=== PATIENT | male | born 1965 | race Caucasian/White ===

== ENCOUNTER 2018-02-26 11:14 | Day surgery (SDC) | payer MEDICAID, SELFPAY ==
[2018-01-15 11:57] VITALS: BP 133/82; PULSE 87; RESP 18; TEMP 36.6; O2SAT 92; BMI 34.0
[2018-02-26] VITALS (7 sets, daily range): BP systolic 101–139; BP diastolic 71–90; PULSE 76–89; RESP 16–18; TEMP 36.1–36.8; O2SAT 90–98; BMI 31.8
--- NOTE | 2018-02-26 | IMM_PTH ---
PATIENT: NOELLE SHINE Jr. LOC: [facility] U#:[id number] AGE/SX: 52/M ROOM: RE02/26/[address]: Dr. Twan Leyva DO : 1965 BED: DIS: 02/26/2018 SPEC #: [id number] RECD: 03/02/18 09:51 STATUS: SARAH REQ #: [id number] GERONIMO: 02/26/18 00:[address]: Twan Leyva DEPT: IMMUNOHISTOCHEMISTRY RECD BY: Jerica Hill ENTERED: 03/02/18 09:53 SP TYPE: IMMUNO OTHR DR: No Primary Care Phys Tissues: I - Hilum of lung, NOS Procedures: CD20 (add) CD45 (add) CD5 (add) CD79A (add) CD3 (initial) PHYSICIAN & INSTITUTION [place] [id number] SPECIMEN INFORMATION: Tissue Source: I ? TBNA, right hilar, site 10R Clinical Info: Mediastinal LAD Specimen Number: [id number] I CPT code: 63620, 33256 x4 METHODOLOGY: Deparaffinized sections of prefer/formalin-fixed tissue or PAP/DQ stained slides are incubated with monoclonal/polyclonal antibodies/oligonucleotide probes. Localization is made via biotin free immunoperoxidase method. Appropriate controls are performed and reacted as expected. Results on target cell population are indicated in the following table: RESULTS: ANTIBODY / CLONE RESULT Block I CD3 (PS1) positive CD5 (SP10) positive CD20 (L26) positive, rare cells CD45 (RP2/18) positive CD79a (11E3) positive, a few cells These tests were developed and their performance characteristics determined by [facility]. They may not have been cleared or approved by the U.S. Food and Drug Administration. The FDA has determined that such clearance or approval is not necessary. INTERPRETATION: I. TBNA, right hilar, site 10R: Small lymphocytes, polytypic in nature, favor benign. SJ:marcus 03/02/18
--- NOTE | 2018-02-26 08:22 | PCM.HP.STD ---
History of Present Illness Date of Admission: 02/26/18 Chief Complaint: Abnormal Chest CT The patient has an extensive smoking history of 2-3 packs per day but recently cut back to 1.5 packs per day. He has been diagnosed previously with COPD and chronic hypoxemic respiratory failure. The patient was recently evaluated at [facility] for increasing dyspnea, during which time, a CT chest was obtained which demonstrated no evidence for pulmonary embolism, but did reveal a right middle lobe mass/lymphadenopathy. The patient reports that he has been smoking now for approximately 43 years. He has a baseline supplemental oxygen requirement of 2.5 L/min. In addition, he has baseline exertional shortness of breath along with intermittent chest tightness and wheezing. He denies the presence of a cough. He was initially told that he had COPD in 2008. However, formal pulmonary function testing has never been completed. The patient was prescribed Tudorza previously but discontinued its use, as he did not feel it was helping him clinically. He currently utilizes a Ventolin rescue inhaler on average 6-8 times per day. The patient also admits to daily marijuana use and social alcohol consumption. 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 Following the patient's initial office visit with me on December 17, he was scheduled to undergo airway evaluation and mediastinal lymph node sampling via EBUS on January 15. However, despite recommendations to only taking clear liquids prior to the procedure, the patient drank coffee with creamer in it, which led to his procedure being canceled by anesthesiology. The patient was subsequently rescheduled to undergo the aforementioned procedure on February 26. Past Medical History Past Medical History (Chronic Problems): Chronic Problems (Last Reviewed 12/17/17 @ 09:32 by Michelle Fernando) Lymphadenopathy, hilar (Chronic) Medical History: Medical History (Last Reviewed 12/17/17 @ 09:32 by Michelle Fernando) COPD (chronic obstructive pulmonary disease) J44.9 Pneumonia J18.9 Allergies No Known Allergies Allergy (Unverified 02/25/18 13:05) Home Medications: Ambulatory Orders Medication Instructions Recorded Albuterol Aerosols [Ventolin 2.5 mg INHALATION BID 01/12/18 Aerosols] Albuterol Inhaler [Ventolin Hfa 1 - 2 puff INHALATION Q4H PRN PRN 01/12/18 (SP)] Surgical History: Surgical History (Last Reviewed 12/17/17 @ 09:32 by Michelle Fernando) History of vasectomy Z98.52 Smoking Status: Current every day smoker Tobacco Use: Cigarettes Review of Systems Constitutional: Denies: Chills, Fever Eyes: Denies: Blurred vision, Double vision HEENT: Denies: Head Aches, Sinus Congestion, Sinus Drainage Cardiovascular: Denies: Chest Pain, Palpitations Respiratory: Reports: Cough, Shortness of Breath Gastrointestinal: Denies: Abdominal Pain, Nausea, Vomiting Genitourinary: Denies: Dysuria Musculoskeletal: Denies: Joint Pain, Joint Tenderness Skin: Denies: Rash, Wounds Neurological: Denies: Numbness, Tingling, Focal weakness Psychiatric: Denies: Anxiety, Depression, Homicidal Ideations, Suicidal Ideations Hematologic/ Lymphatic: Denies: Easy Bruising, Easy Bleeding VTE Information - Inpt Only VTE Present on Admission: No VTE Mechan Device Prophylaxis: None VTE Pharm Prophylaxis ordered?: No Reason prophylaxis not ordered:: Procedure Not Indicated - Physical Exam General: Alert, Cooperative, No apparent distress HEENT: Atraumatic, PERRLA, Normocephalic Oral: Moist Mucosa Neck: Supple, No Nodes, Trachea Midline Lungs: No rhonchi, No wheeze, No rales, Diminished Cardiovascular: Regular rate, Regular Rhythm, Normal S1, Normal S2, No murmurs Abdomen: Bowel Sounds Present, Soft, Non Tender, Obese Extremities: No cyanosis, No edema Skin: No breakdown Musculoskeletal: No Muscle Wasting Lymphatic: No Cervical, Supraclavicular, or Inguinal Adenopathy Neurological: Neuro grossly intact Psych/Mental Status: Normal Affect, Appropriate Vital Signs Temp Pulse Resp BP Pulse Ox 97.9 F 87 18 133/82 H 92 01/15/18 11:57 01/15/18 11:57 01/15/18 11:57 01/15/18 11:57 01/15/18 11:57 Oxygen Flow Rate (L/min) 2 Oxygen Delivery Method Nasal Cannula Weight: 217 lb 6.012 oz Body Mass Index (BMI) 34.0 Assessment/Plan All Active Problems (Last Reviewed 12/17/17 @ 09:32 by Michelle Fernando) COPD (chronic obstructive pulmonary disease) (Acute) RECOMMENDATIONS: 1. Proceed with scheduled EBUS. IMPRESSIONS: 1. Abnormal chest CT The patient's recent CT chest with contrast obtained at [facility] revealed the presence of a right-sided hilar mass along with a large subcarinal lymph node, evidence of emphysema along with bronchiectasis of the right middle and lower lobes. These findings, in the setting of extensive tobacco use, is certainly concerning for underlying malignancy. I explained the process for moving forward with a direct tissue biopsy with the patient. Risks and benefits of proceeding with direct tissue biopsy/mediastinal lymph node sampling by EBUS was explained to the patient at length. Questions were answered accordingly. Patient is not currently utilizing any aspirin or blood thinning products. Following a discussion of the risks and benefits, the patient is in agreement to proceed accordingly. Bronchoscopy orders have been placed. The patient was initially scheduled to undergo his procedure on January 14, but did not comply with the clear liquid status requested by anesthesia. Therefore, the patient's procedure was canceled and had to be rescheduled for February 26. This note was generated with 9+ dictation software. It may contain incorrect words, spelling, and punctuation that were not noted in checking the note before signing.
--- NOTE | 2018-02-26 08:26 | HP.PCM_ITS ---
History of Present Illness Date of Admission: 02/26/18 Chief Complaint: Abnormal Chest CT The patient has an extensive smoking history of 2-3 packs per day but recently cut back to 1.5 packs per day. He has been diagnosed previously with COPD and chronic hypoxemic respiratory failure. The patient was recently evaluated at [facility] for increasing dyspnea, during which time, a CT chest was obtained which demonstrated no evidence for pulmonary embolism, but did reveal a right middle lobe mass/lymphadenopathy. The patient reports that he has been smoking now for approximately 43 years. He has a baseline supplemental oxygen requirement of 2.5 L/min. In addition, he has baseline exertional shortness of breath along with intermittent chest tightness and wheezing. He denies the presence of a cough. He was initially told that he had COPD in 2008. However, formal pulmonary function testing has never been completed. The patient was prescribed Tudorza previously but discontinued its use, as he did not feel it was helping him clinically. He currently utilizes a Ventolin rescue inhaler on average 6-8 times per day. The patient also admits to daily marijuana use and social alcohol consumption. 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 Following the patient's initial office visit with me on December 17, he was scheduled to undergo airway evaluation and mediastinal lymph node sampling via EBUS on January 15. However, despite recommendations to only taking clear liquids prior to the procedure, the patient drank coffee with creamer in it, which led to his procedure being canceled by anesthesiology. The patient was subsequently rescheduled to undergo the aforementioned procedure on February 26. Past Medical History Past Medical History (Chronic Problems): Chronic Problems (Last Reviewed 12/17/17 @ 09:32 by Michelle Fernando) Lymphadenopathy, hilar (Chronic) Medical History: Medical History (Last Reviewed 12/17/17 @ 09:32 by Michelle Fernando) COPD (chronic obstructive pulmonary disease) J44.9 Pneumonia J18.9 Allergies No Known Allergies Allergy (Unverified 02/25/18 13:05) Home Medications: Ambulatory Orders Medication Instructions Recorded Albuterol Aerosols [Ventolin 2.5 mg INHALATION BID 01/12/18 Aerosols] Albuterol Inhaler [Ventolin Hfa 1 - 2 puff INHALATION Q4H PRN PRN 01/12/18 (SP)] Surgical History: Surgical History (Last Reviewed 12/17/17 @ 09:32 by Michelle Fernando) History of vasectomy Z98.52 Smoking Status: Current every day smoker Tobacco Use: Cigarettes Review of Systems Constitutional: Denies: Chills, Fever Eyes: Denies: Blurred vision, Double vision HEENT: Denies: Head Aches, Sinus Congestion, Sinus Drainage Cardiovascular: Denies: Chest Pain, Palpitations Respiratory: Reports: Cough, Shortness of Breath Gastrointestinal: Denies: Abdominal Pain, Nausea, Vomiting Genitourinary: Denies: Dysuria Musculoskeletal: Denies: Joint Pain, Joint Tenderness Skin: Denies: Rash, Wounds Neurological: Denies: Numbness, Tingling, Focal weakness Psychiatric: Denies: Anxiety, Depression, Homicidal Ideations, Suicidal Ideations Hematologic/ Lymphatic: Denies: Easy Bruising, Easy Bleeding VTE Information - Inpt Only VTE Present on Admission: No VTE Mechan Device Prophylaxis: None VTE Pharm Prophylaxis ordered?: No Reason prophylaxis not ordered:: Procedure Not Indicated - Physical Exam General: Alert, Cooperative, No apparent distress HEENT: Atraumatic, PERRLA, Normocephalic Oral: Moist Mucosa Neck: Supple, No Nodes, Trachea Midline Lungs: No rhonchi, No wheeze, No rales, Diminished Cardiovascular: Regular rate, Regular Rhythm, Normal S1, Normal S2, No murmurs Abdomen: Bowel Sounds Present, Soft, Non Tender, Obese Extremities: No cyanosis, No edema Skin: No breakdown Musculoskeletal: No Muscle Wasting Lymphatic: No Cervical, Supraclavicular, or Inguinal Adenopathy Neurological: Neuro grossly intact Psych/Mental Status: Normal Affect, Appropriate Vital Signs Temp Pulse Resp BP Pulse Ox 97.9 F 87 18 133/82 H 92 01/15/18 11:57 01/15/18 11:57 01/15/18 11:57 01/15/18 11:57 01/15/18 11:57 Oxygen Flow Rate (L/min) 2 Oxygen Delivery Method Nasal Cannula Weight: 217 lb 6.012 oz Body Mass Index (BMI) 34.0 Assessment/Plan All Active Problems (Last Reviewed 12/17/17 @ 09:32 by Michelle Fernando) COPD (chronic obstructive pulmonary disease) (Acute) RECOMMENDATIONS: 1. Proceed with scheduled EBUS. IMPRESSIONS: 1. Abnormal chest CT The patient's recent CT chest with contrast obtained at [facility] revealed the presence of a right-sided hilar mass along with a large subcarinal lymph node, evidence of emphysema along with bronchiectasis of the right middle and lower lobes. These findings, in the setting of extensive tobacco use, is certainly concerning for underlying malignancy. I explained the process for moving forward with a direct tissue biopsy with the patient. Risks and benefits of proceeding with direct tissue biopsy/mediastinal lymph node sampling by EBUS was explained to the patient at length. Questions were answered accordingly. Patient is not currently utilizing any aspirin or blood thinning products. Following a discussion of the risks and benefits, the patient is in agreement to proceed accordingly. Bronchoscopy orders have been placed. The patient was initially scheduled to undergo his procedure on January 14 , but did not comply with the clear liquid status requested by anesthesia. Therefore, the patient's procedure was canceled and had to be rescheduled for February 26. This note was generated with [employer] dictation software. It may contain incorrect words, spelling, and punctuation that were not noted in checking the note before signing.
[2018-02-26 12:06] LABS: Hematocrit 51.2 % (40-54); Mean Corp Hgb Conc 33.2 g/gl (32-36); Mean Corpuscular Hgb 30.2 pg (27.0-32.0); Mean Corpuscular Volume 91.1 fL (80-94); Mean Platelet Vol. 9.2 fl (6.2-12.0); Platelet Count 233 K/mm3 (150-450); RBC Distribution Width CV 13.4 % (11.6-14.6); RBC Distribution Width SD 44.2 fl (35.1-43.9); Red Blood Count 5.62 M/mm3 (4.6-6.2); Scan Indicated on CBC? Y/N NO; White Blood Count 6.2 K/mm3 (4.4-11.0)
[2018-02-26 12:45] LABS: Prothrombin Time (Protime)PT. 12.7 SECONDS (11.7-14.9)
--- NOTE | 2018-02-26 12:45 | ASPS_PTH ---
PATIENT: NOELLE SHINE Jr. LOC: EN U#:[id number] AGE/SX: 52/M ROOM: RE02/26/[address]: Dr. Twan Leyva DO : 1965 BED: DIS: 02/26/2018 SPEC #: [id number] RECD: 02/26/18 14:15 STATUS: SARAH REJaneth #: [id number] GERONIMO: 02/26/18 12:[address]: Twan Leyva DEPT: CYTOLOGY RECD BY: Jesús Rader ENTERED: 03/01/18 09:27 SP TYPE: ASPIRATION OTHR DR: Graciela Primary Care Phys Tissues: A - Lung, NOS B - Lung, NOS C - Lung, NOS D - Lung, NOS E - Lung, NOS F - Lung, NOS G - Lung, NOS H - Lung, NOS I - Lung, NOS Procedures: Special Stain Group II Surgery Specimen Level IV Diff Quik Stain (control) Cell Block Cytology Other HEADER OPERATION: EBUS, TBNA PRE-OP DIAGNOSIS: Mediastinal LAD TISSUE SUBMITTED: A-E ? EBUS, site 7, F & G ? EBUS, site 10R, H ? TBNA, subcarina, site 7, I ? TBNA, right hilar, site 10R DIAGNOSIS CYTOLOGY A. EBUS, aspiration #1, site 7: Mucoid material. Acute inflammation. Respiratory epithelial cells, a few lymphocytes. Negative for malignant cells. B. EBUS, aspiration #2, site 7: Blood only. Negative for malignant cells. C. EBUS, aspiration #3, site 7: Adequate for evaluation. Negative for malignant cells. Lymphocytes present. D. EBUS, aspiration #4, site 7: Adequate for evaluation. Negative for malignant cells. Lymphocytes and respiratory epithelial cells present. E. EBUS, aspiration #5, site 7: Blood, a few respiratory epithelial cells and lymphocytes. Negative for malignant cells. F. EBUS, aspiration #6, site 10R: Adequate for evaluation. Negative for malignant cells. Lymphocytes present. G. EBUS, aspiration #7, site 10R: Bloody specimen. Negative for malignant cells. A few lymphocytes present. H. TBNA, subcarina, site 7 (cell block): Negative for malignant cells. Lymphocytes present. Adequate for evaluation. I. TBNA, right hilar, site 10R (cell block): Negative for malignant cells. Lymphocytes present. Adequate for evaluation. SJ:marcus 03/02/18 COMMENT The specimen is evaluated at the time of procedure by Dr. Muir. Immediate evaluation: A. EBUS, aspiration #1, site 7: Mucoid material. Acute inflammation. Respiratory epithelial cells, a few lymphocytes. Negative for malignant cells. Reported to Dr. Leyva at 1:00 p.m. B. EBUS, aspiration #2, site 7: Blood only. Negative for malignant cells. Reported to Dr. Leyva at 1:00 p.m. C. EBUS, aspiration #3, site 7: Adequate for evaluation. Negative for malignant cells. Lymphocytes present. Reported to Dr. Leyva at 1:04 p.m. D. EBUS, aspiration #4, site 7: Adequate for evaluation. Negative for malignant cells. Lymphocytes present and respiratory epithelial cells. Reported at 1:15 p.m. E. EBUS, aspiration #5, site 7: Blood, a few respiratory epithelial cells and lymphocytes. Negative for malignant cells. Reported to Dr. Leyva at 1:19 p.m. F. EBUS, aspiration #6, site 10R: Adequate for evaluation. Negative for malignant cells. Lymphocytes present. Reported to Dr. Leyva at 1:23 p.m. G. EBUS, aspiration #7, site 10R: Bloody specimen. Negative for malignant cells. A few lymphocytes present. Reported to Dr. Leyva at 1:28 p.m. I. Immunohistochemistry ([id number]) shows lymphocytes to be polytypic in nature, favor benign. CYTOLOGY STUDY Slides are reviewed. CYTOLOGY GROSS A ? Received labeled with the patient?s name, and designated ?FNA, EBUS, aspiration #1, site 7.? The specimen consists of two smears. The smears are submitted for immediate cytologic evaluation (wet?read). B - Received labeled with the patient?s name, and designated ?FNA, EBUS, aspiration #2, site 7.? The specimen consists of two smears. The smears are submitted for immediate cytologic evaluation (wet?read). C - Received labeled with the patient?s name, and designated ?FNA, EBUS, aspiration #3, site 7.? The specimen consists of two smears. The smears are submitted for immediate cytologic evaluation (wet?read). D - Received labeled with the patient?s name, and designated ?FNA, EBUS, aspiration #4, site 7.? The specimen consists of two smears. The smears are submitted for immediate cytologic evaluation (wet?read). E - Received labeled with the patient?s name, and designated ?FNA, EBUS, aspiration #5, site 7.? The specimen consists of two smears. The smears are submitted for immediate cytologic evaluation (wet?read). F - Received labeled with the patient?s name, and designated ?FNA, EBUS, aspiration #6, site 10R.? The specimen consists of two smears. The smears are submitted for immediate cytologic evaluation (wet?read). G - Received labeled with the patient?s name, and designated ?FNA, EBUS, aspiration #7, site 10R.? The specimen consists of two smears. The smears are submitted for immediate cytologic evaluation (wet?read). H ? Received is 1 ml of thick bloody fluid labeled with the patient?s name, and designated ?TBNA, subcarina, site?7.? Submitted for cytology preparation including cell block. I - Received is 1 ml of thick bloody fluid labeled with the patient?s name, and designated ?TBNA, right hilar, site?10R.? Submitted for cytology preparation including cell block. / DARSHAN:marcus 02/26/18 TC:5 CPT: 62545 x2, 41748 x2, 21618 x2, 71983 x5
[2018-02-26 12:46] LABS: Partial Thromboplast Time 27.4 Seconds (24.1-36.2)
--- NOTE | 2018-02-26 14:00 | PCM.OP.BLANK ---
Operative Report Date of Procedure: 02/26/18 BRONCHOSCOPY (EBUS) PROCEDURE REPORT DATE OF SERVICE: February 26, 2018 BRIEF HISTORY: The patient has an extensive smoking history of 2-3 packs per day but recently cut back to 1.5 packs per day. He has been diagnosed previously with COPD and chronic hypoxemic respiratory failure. The patient was recently evaluated at [facility] for increasing dyspnea, during which time, a CT chest was obtained which demonstrated no evidence for pulmonary embolism, but did reveal a right middle lobe mass/lymphadenopathy. The patient reports that he has been smoking now for approximately 43 years. He has a baseline supplemental oxygen requirement of 2.5 L/min. Following the patient's initial office visit with me on December 17, he was scheduled to undergo airway evaluation and mediastinal lymph node sampling via EBUS on January 15. However, despite recommendations to only take clear liquids prior to the procedure, the patient drank coffee with creamer in it, which led to his procedure being canceled by anesthesiology. The patient was subsequently rescheduled to undergo the aforementioned procedure on February 26. PROCEDURE: Bronchoscopy with endoscopic endobronchial ultrasound (EBUS), transbronchial needle aspiration INDICATION: Mediastinal lymphadenopathy PHYSICIAN: Twan Leyva DO ANESTHETIC: This procedure was completed under the supervision of anesthesia. Please refer to their documentation accordingly. COMPLICATIONS: No immediate complications noted. DESCRIPTION OF PROCEDURE: A history and physical has been performed. Please see outpatient pulmonary clinic note. The patient's medications and allergies have been reviewed. The risks and benefits of the procedure and sedation options and risks were discussed with the patient at length. All questions were answered and informed consent was obtained. The patient's identification and proposed procedure were verified prior to the procedure by the physician. ASA GRADE ASSESSMENT: II After obtaining informed consent, the bronchoscope was introduced through the mouth, via laryngeal mask airway and advanced to the tracheal bronchial tree bilaterally. The procedure was accomplished without difficulty. The patient tolerated the procedure well. FINDINGS: The visualized oropharynx appears normal. The vocal cords appeared normal and moved normally with breathing. The subglottic space is normal. The trachea was of normal caliber. The ace is sharp. The tracheal bronchial trees of the left and right lungs were examined to at least the first subsegmental level. Bronchial mucosa and anatomy was noted to be normal. No endobronchial lesions were identified. Once the airway inspection was completed, the standard bronchoscope was withdrawn and a convex probe endobronchial ultrasound (EBUS) bronchoscope was inserted through the same route. The endobronchial ultrasound endoscope was then utilized to systematically examine the superior/inferior mediastinal and hilar lymph nodes to assist with fine-needle aspiration. In total, 7 transbronchial needle aspirations were completed at 2 different lymph node stations. Transbronchial needle aspiration was performed at lymph node station #7 (Subcarina) using an Olympus EBUS-TBNA 19-gauge needle and sent for routine cytology. The procedure was guided by ultrasound. 5 samples were obtained. Transbronchial needle aspiration was then performed at lymph node station #10R (Right Hilar) using an Olympus EBUS-TBNA 19-gauge needle and sent for routine cytology. The procedure was guided by ultrasound. 2 samples were obtained. Rapid on-site evaluation (CAIT): Preliminary cytology was suggestive of lymphocytes without malignant cells identified. Final pathology results are pending. Following this, the EBUS endoscope was subsequently withdrawn from the patient's airway through the LMA. A conventional bronchoscope was then reinserted into the patient's airway, at which time, any retained secretions and/or blood was cleared. The bronchoscope was then withdrawn without complication. The patient was then transferred to the PACU, where they recovered in the usual fashion. IMPRESSION: 1. Subcarinal and right hilar lymphadenopathy was identified. Transbronchial needle aspiration was completed at 2 different lymph node stations. 2. No endobronchial lesions were identified. 3. Transbronchial needle aspiration samples will be sent for cytology and flow cytometry. RECOMMENDATIONS: 1. Await final pathology reports. 2. Follow-up in the pulmonary medicine clinic as scheduled. Code Visit 9xxxx: Other Procedure See Report - [id number]
--- NOTE | 2018-02-26 14:05 | OP.PCM_ITS ---
Operative Report Date of Procedure: 02/26/18 BRONCHOSCOPY (EBUS) PROCEDURE REPORT DATE OF SERVICE: February 26, 2018 BRIEF HISTORY: The patient has an extensive smoking history of 2-3 packs per day but recently cut back to 1.5 packs per day. He has been diagnosed previously with COPD and chronic hypoxemic respiratory failure. The patient was recently evaluated at [facility] for increasing dyspnea, during which time, a CT chest was obtained which demonstrated no evidence for pulmonary embolism, but did reveal a right middle lobe mass/lymphadenopathy. The patient reports that he has been smoking now for approximately 43 years. He has a baseline supplemental oxygen requirement of 2.5 L/min. Following the patient's initial office visit with me on December 17, he was scheduled to undergo airway evaluation and mediastinal lymph node sampling via EBUS on January 15. However, despite recommendations to only take clear liquids prior to the procedure, the patient drank coffee with creamer in it, which led to his procedure being canceled by anesthesiology. The patient was subsequently rescheduled to undergo the aforementioned procedure on February 26. PROCEDURE: Bronchoscopy with endoscopic endobronchial ultrasound (EBUS), transbronchial needle aspiration INDICATION: Mediastinal lymphadenopathy PHYSICIAN: Twan Leyva DO ANESTHETIC: This procedure was completed under the supervision of anesthesia. Please refer to their documentation accordingly. COMPLICATIONS: No immediate complications noted. DESCRIPTION OF PROCEDURE: A history and physical has been performed. Please see outpatient pulmonary clinic note. The patient's medications and allergies have been reviewed. The risks and benefits of the procedure and sedation options and risks were discussed with the patient at length. All questions were answered and informed consent was obtained. The patient's identification and proposed procedure were verified prior to the procedure by the physician. ASA GRADE ASSESSMENT: II After obtaining informed consent, the bronchoscope was introduced through the mouth, via laryngeal mask airway and advanced to the tracheal bronchial tree bilaterally. The procedure was accomplished without difficulty. The patient tolerated the procedure well. FINDINGS: The visualized oropharynx appears normal. The vocal cords appeared normal and moved normally with breathing. The subglottic space is normal. The trachea was of normal caliber. The ace is sharp. The tracheal bronchial trees of the left and right lungs were examined to at least the first subsegmental level. Bronchial mucosa and anatomy was noted to be normal. No endobronchial lesions were identified. Once the airway inspection was completed, the standard bronchoscope was withdrawn and a convex probe endobronchial ultrasound (EBUS) bronchoscope was inserted through the same route. The endobronchial ultrasound endoscope was then utilized to systematically examine the superior/inferior mediastinal and hilar lymph nodes to assist with fine-needle aspiration. In total, 7 transbronchial needle aspirations were completed at 2 different lymph node stations. Transbronchial needle aspiration was performed at lymph node station #7 ( [place]) using an Olympus EBUS-TBNA 19-gauge needle and sent for routine cytology. The procedure was guided by ultrasound. 5 samples were obtained. Transbronchial needle aspiration was then performed at lymph node station #10R ( Right Hilar) using an Olympus EBUS-TBNA 19-gauge needle and sent for routine cytology. The procedure was guided by ultrasound. 2 samples were obtained. Rapid on-site evaluation (CAIT): Preliminary cytology was suggestive of lymphocytes without malignant cells identified. Final pathology results are pending. Following this, the EBUS endoscope was subsequently withdrawn from the patient' s airway through the LMA. A conventional bronchoscope was then reinserted into the patient's airway, at which time, any retained secretions and/or blood was cleared. The bronchoscope was then withdrawn without complication. The patient was then transferred to the PACU, where they recovered in the usual fashion. IMPRESSION: 1. Subcarinal and right hilar lymphadenopathy was identified. Transbronchial needle aspiration was completed at 2 different lymph node stations. 2. No endobronchial lesions were identified. 3. Transbronchial needle aspiration samples will be sent for cytology and flow cytometry. RECOMMENDATIONS: 1. Await final pathology reports. 2. Follow-up in the pulmonary medicine clinic as scheduled. Code Visit 9xxxx: Other Procedure See Report - [id number]
[2018-02-26] MEDS: Ipratropium/Albuterol Sulfate 3 ML AMPUL.NEB INHALATION (14:22)
== END 2018-02-26 15:27 | disposition home or self-care (01) ==
PROVIDERS: Visit Provider Internal Medicine Critical Care Medicine
PROC: BB4BZZZ Ultrasonography of Pleura (ICD-10-PCS; principal; 2018-02-26 12:00)
DX: R91.8 Other nonspecific abnormal finding of lung field (principal); J96.11 Chronic respiratory failure with hypoxia; J47.9 Bronchiectasis, uncomplicated; R59.1 Generalized enlarged lymph nodes; G47.30 Sleep apnea, unspecified; F17.210 Nicotine dependence, cigarettes, uncomplicated; Z99.81 Dependence on supplemental oxygen; Z87.01 Personal history of pneumonia (recurrent)
CPT/HCPCS: 31652; 85027; 85610; 85730; 88161; 88305; 88313; 88341; 88342; 94640; J7120; A4216

== ENCOUNTER 2021-01-18 09:13 | Inpatient (IN) | payer MEDICAID, SELFPAY ==
[2021-01-18] VITALS (39 sets, daily range): BP systolic 95–176; BP diastolic 53–127; PULSE 11–101; RESP 8–23; TEMP 34.7–36.8; O2SAT 70–100; BMI 43.7
--- NOTE | 2021-01-18 09:19 | ED.RN ---
PT'S COLOR IS IMPROVING WITH 02
--- NOTE | 2021-01-18 09:22 | NURSING ---
NO OLD EKGS
[2021-01-18] MEDS: Ipratropium/Albuterol Sulfate 3 ML AMPUL.NEB INHALATION ×2 (09:25→23:13)
--- NOTE | 2021-01-18 09:27 | EKG12_ITS ---
Test Reason : COPD Blood Pressure : / mmHG Vent. Rate : 090 BPM Atrial Rate : 090 BPM P-R Int : 128 ms QRS Dur : 078 ms QT Int : 600 ms P-R-T Axes : 046 164 -23 degrees QTc Int : 734 ms Normal sinus rhythm Somatic / Motion Artifact Low voltage QRS Nonspecific T wave abnormality Prolonged QT Abnormal ECG Confirmed by ARNOLD TORRES, SANCHEZ ([id number]), features editor TAPAN MCADAMS ([id number]) on 01/23/2021 1:28:17 PM Referred By: JAYLIN Confirmed By:SANCHEZ BARRETT MD
--- NOTE | 2021-01-18 09:29 | ED.VIS.DYS ---
HPI History of Present Illness Chief Complaint: Shortness of Breath Informant: patient and spouse/S.O. Onset/Context/Timing Onset: Weeks Context: gradual Timing: Continuous Quality: Positive for Wheezing Current Severity: Severe Maximum Severity: Severe Worsened by: Exertion and Lying flat Associated Symptoms cough Chest Pain: Positive for None Narrative Narrative: 55-year-old male history of COPD and possibly CHF. Smokes about half pack cigarettes a day. According to the patient's significant other for the last 2 weeks has been progressively short of breath he has been blue in color the last 24 to 36 hours. And having hard time breathing. He was seen in a area emergency department in the last week or so they wanted to admit him and he decided against that. He denies any chest pain. He denies any fever. He has no history of DVT or PE in the past that they are aware of. PE Risk Factors: Negative for Cancer, OCP + Smoking + > 35, Prior DVT or PE, Recent surgery and Recent travel Prior similar symptoms: Yes Recent Illness/Hospitalization: No PFSH PFSH Medical History (Updated 01/18/21 @ 10:[address] Dorian Juan MD) COPD (chronic obstructive pulmonary disease) Pneumonia Home Medications albuterol sulfate 1 - 2 puff INHALATION Q4H PRN PRN 01/12/18 [History Last Taken 02/26/18 07:45] albuterol sulfate 2.5 mg INHALATION BID 01/12/18 [History Last Taken 02/26/18 07:45] Allergy/AdvReac Type Severity Reaction Status Date / Time No Known Allergies Allergy Verified 01/18/21 09:18 Family History Father Heart disease Diabetes Surgical History History of vasectomy Social History Smoking Status: Current every day smoker tobacco type: cigarettes Tobacco: How many years used: 44 second hand exposure: Yes alcohol intake: current alcohol intake frequency: 3 or more drinks per day Alcohol type: beer and hard liquor substance use type: marijuana caffeine: Yes Type: coffee what type of physical activity do you participate in: none ROS ROS ED ROS Narrative Shortness of breath. No fever. No vomiting. No diarrhea. Constitutional Constitutional ED: Denies fever(s) Eyes Eyes: Denies change in vision ENT ENT ED: Denies ear pain or sore throat Cardiovascular Cardiovascular: Reports orthopnea; Denies chest pain Respiratory/Chest Respiratory/Chest: Reports cough, dyspnea, dyspnea on exertion and orthopnea; Denies sputum Gastrointestinal Gastrointestinal: Denies abdominal pain, diarrhea, nausea or vomiting Genitourinary Genitourinary ED: Denies dysuria Musculoskeletal Musculoskeletal: Denies myalgias Integumentary Denies rash Neurologic Neurologic: Denies headache(s) Psychiatric Psychiatric: Denies depression Endocrine Endocrinology: Denies polyuria Hematologic/Lymphatic Hematologic/Lymphatic: Denies easy bruising Allergic/Immunologic Allergic/Immunologic ED: Denies urticaria EXAM Physical Exam Narrative Exam Narrative: Middle-aged male looks older than his stated age. Initial vital signs are stable except for his oxygen saturation is in the 60s to 70s. Patient is blue in color. He has decreased mental status. H EENT exam unremarkable. Neck nontender. Lungs inspiratory expiratory wheezing throughout. Diminished breath sounds in the bases. Heart regular rhythm rate about 100. No appreciable murmur. Abdomen mildly obese. Is a little distended. He really does not have abdominal tenderness. There is edema. Moving all 4 extremities. Bruising and discoloration of the lower extremities. 1+ pitting edema bilaterally. Neurologically he is awake. He is overall mentally does press. He does answer questions and follows limited commands. Const Vital Signs: 01/18/21 09:14 01/18/21 09:17 01/18/21 09:18 Temperature 96 F L Temperature Source Temporal Pulse Rate 101 H Respiratory Rate 23 H Respiratory Effort Short of Breath Accessory Muscle Use Nasal Flaring Pursed Lip Head Bobbing Respiratory Depth Shallow Respiratory Pattern Irregular Blood Pressure 134/123 H Blood Pressure Mean 126 Pulse Ox 70 96 Oxygen Delivery Method Room Air Non-Rebreather Non-Rebreather Oxygen Flow Rate (L/min) 16 01/18/21 09:20 01/18/21 09:25 01/18/21 09:29 Temperature 96 F L 96 F L Temperature Source Temporal Temporal Pulse Rate 96 Respiratory Rate 14 Respiratory Effort Respiratory Depth Respiratory Pattern Blood Pressure 141/116 H Blood Pressure Mean 124 Pulse Ox 94 94 Oxygen Delivery Method Bi-pap Bi-pap Bi-pap Oxygen Flow Rate (L/min) 01/18/21 09:34 01/18/21 10:16 Temperature 96 F L Temperature Source Temporal Pulse Rate 93 89 Respiratory Rate 15 12 Respiratory Effort Respiratory Depth Respiratory Pattern Blood Pressure 134/110 H 165/127 H Blood Pressure Mean 118 139 Pulse Ox 98 100 Oxygen Delivery Method Bi-pap Mechanical Ventilator Oxygen Flow Rate (L/min) HEENT Reports moist mucous membranes atraumatic; Negative for trauma Eyes PERRL and EOMs intact bilaterally Neck no lymphadenopathy, supple and no meningeal signs Resp Auscultation: wheezes and diminished lung sounds Cardio regular rate, regular rhythm, S1 normal heart sound, S2 normal heart sound and no murmurs GI non-tender and no masses; Negative for non-distended Auscultation: normoactive bowel sounds Palpation: soft; Negative for tender or rebound tenderness present Back/Spine normal to inspection Extremity General Extremety ED: Yes edema; Negative for tenderness General Extremity: edema Neuro Neuro Narrative: Awake but decreased mental status. Answers limited questions and follows limited commands. Moving all 4 extremities. Sensorium / Orientation: alert Psych mental status grossly normal Skin Lesions: no lesions Rashes: no rashes MDM MDM MDM Narrative Medical decision making narrative: Middle-aged male history of COPD may or may not have also acute CHF. Initially tried on BiPAP which if he gets any worse he will need emergent intubation. He is being given IV Solu-Medrol. DuoNeb and albuterol aerosols. Patient is critically ill. He is in respiratory failure. He will need to be admitted to the hospital. Patient was placed on BiPAP. He was shown some minor signs of improvement but was very slow. Given his blood gas showed a pH of 7.17 a PCO2 of 72 and his overall clinical appearance it was felt his best treatment option was endotracheal intubation. Patient was treated with 100 mg of succinylcholine IV and 20 of etomidate. He was orally intubated on the first attempt with a 7-1/2 ET tube without any difficulty. Patient tolerated procedure well. He is doing well post procedure. Chest x-ray shows proper tube placement just above the ace.. I have spoken already to the ophthalmology surgical technician and the hospitalist patient will be admitted in the ICU. Lab Data Attestation: I reviewed the patient's lab results. Lab results narrative: ABG shows a pH of 7.17. PCO2 of 72 and a PO2 of 138 that was on 100% oxygen and on BiPAP. CBC showed a white count of 12. Hemoglobin 16. Electrolytes unremarkable BUN of 40 creatinine 2.31 I do not think we have old ones available for comparison. Liver enzymes are elevated. His lactic acid is 10. I think that is primarily due to his work of breathing. Labs: Laboratory Results - last 24 hr 01/18/21 01/18/21 01/18/21 09:10 09:10 09:10 WBC 12.1 H RBC 5.63 Hgb 16.3 Hct 57.8 H MCV 102.7 H MCH 29.0 MCHC 28.2 L RDW Std Deviation 64.5 H RDW Coeff of Etelvina 17.6 H Plt Count 135 L MPV 11.2 Immature Gran % (Auto) 0.700 Neut % (Auto) 82.0 H Lymph % (Auto) 3.4 L Dubois % (Auto) 13.7 H Eos % (Auto) 0.0 Baso % (Auto) 0.2 Absolute Neuts (auto) 9.9 H Absolute Lymphs (auto) 0.41 L Nucleated RBC % 0.2 Differential Comment SCANNED PT INR APTT Sodium 136 Potassium 5.1 Chloride 90 L Carbon Dioxide 31.0 Anion Gap 15 BUN 40 H Creatinine 2.31 H Estim Creat Clear Calc 65.88 Est GFR (MDRD) Af Amer 38 L Est GFR (MDRD) Non-Af 31 L BUN/Creatinine Ratio 17.3 Glucose 123 H Lactic Acid 10.0 H* Calcium 9.0 Total Bilirubin 5.10 H AST 2193 H ALT 1156 H Alkaline Phosphatase 167 H Total Protein 7.3 Albumin 3.6 Globulin 3.7 Albumin/Globulin Ratio 1.0 01/18/21 09:32 WBC RBC Hgb Hct MCV MCH MCHC RDW Std Deviation RDW Coeff of Etelvina Plt Count MPV Immature Gran % (Auto) Neut % (Auto) Lymph % (Auto) Dubois % (Auto) Eos % (Auto) Baso % (Auto) Absolute Neuts (auto) Absolute Lymphs (auto) Nucleated RBC % Differential Comment PT Cancelled INR Cancelled APTT Cancelled Sodium Potassium Chloride Carbon Dioxide Anion Gap BUN Creatinine Estim Creat Clear Calc Est GFR (MDRD) Af Amer Est GFR (MDRD) Non-Af BUN/Creatinine Ratio Glucose Lactic Acid Calcium Total Bilirubin AST ALT Alkaline Phosphatase Total Protein Albumin Globulin Albumin/Globulin Ratio ABG Data ABG results: ABG 01/18/21 09:44 Specimen Type ART Sample Site L Radial pH 7.18 L* Bicarbonate Actual 27.0 H Total CO2 29 Base Excess -1 O2 Saturation 98 O2 % 100 ABG pCO2 72.6 H* ABG pO2 139 H Vent Mode BiLevel POC PEEP 10 POC Pressure Suppt 28 Crit Call To/Read Back Yes Radiography Chest X-Ray - ED: 1 View, Read by ED Physician, Mediastinum, Bony Structures, No Acute Disease and CHF Diagnostic Testing: Radiology Impression Chest X-Ray 01/18/21 09:55 IMPRESSION: The tip of the endotracheal tube is at 3.5 sinus proximal to the ace. An orogastric tube is seen with the tip below the left hemidiaphragm. Increased interstitial markings more prominent in the lower lobes suggestive of a CHF with possible bibasilar atelectasis and/or early infiltrates. Electronically Signed: Joon Berkowitz MD at 10:16 EDT , Service support , KUB X-Ray 01/18/21 09:55 IMPRESSION: The tip of the orogastric tube is in the body of the stomach. Electronically Signed: Joon Berkowitz MD at 10:25 EDT , Service support , Portable 1 view chest x-ray interpreted by myself shows chronic changes and primarily vascular congestion consistent with CHF. Endotracheal tube in appropriate position. OG also seen. Rhythm Strip Rhythm Strip: Sinus Rhythm Rate: 90 Ectopy: None EKG Initial EKG: Interpretation: Sinus Rhythm Comments: Normal sinus rhythm rate of 90. No acute signs of either an IL nor ischemia. Prior EKG tracings: not available for review Procedures Intubations Intubation Method: orotracheal Intubation Verification: Positive color change Intubation Complications: no complications Critical Care Time Critical Care Time: Yes Critical care time (excluding procedures): 30-74 minutes, Including time spent:, Discussing w/Patient &/or Family/Licensed Therapist, Discussing w/Consultants, Arranging Admission or Transfer and Performing Direct Patient Care at Bedside Discharge Plan Dx/Rx/DC Orders Clinical Impression: Respiratory failure, COPD (chronic obstructive pulmonary disease), Congestive heart failure, Acidosis, lactic, Acidosis, metabolic, with respiratory acidosis, Acute kidney injury Disposition Disposition: Acute Care Hospital [facility]
[2021-01-18] MEDS: MethylPREDNISolone 125 MG/2 ML Vial IV (09:35)
[2021-01-18] MEDS: Albuterol 2.5 MG/3 ML VIAL.NEB. INHALATION ×3 (09:36→21:06)
[2021-01-18 09:51] LABS: Base Excess -1 mmol/L (-2 to +2); Blood Gas Specimen Type ART; FI02 100; Mode BiLevel; PEEP 10; PO2 139 mmHG (75-100); PS 28; SITE L Radial; SO2 98 % (95-99); Total Carbon Dioxide 29 mmol/L; pCO2 72.6 mmHg (35-45); pH 7.18 (7.35-7.45)
--- NOTE | 2021-01-18 09:52 | CPS ---
Critical arterial blood gas values given to Dr. Juan by Brigitte, POLE SHAVER
--- NOTE | 2021-01-18 09:55 | RAD_ITS ---
STUDY: X-RAY CHEST REASON FOR EXAM: Male, 55 years old. Copd / chf . Endotracheal tube placement. TECHNIQUE: Single AP portable view of the chest. COMPARISON: None. FINDINGS: An endotracheal tube is in situ. The tip is at 3.5 cm proximal to the ace. An orogastric tube is seen with tip below the left hemidiaphragm. EKG electrode are seen. Vascular congestion with increased interstitial markings more prominent in the lower lobes. This may represent CHF with a superimposed bibasilar atelectasis and/or infiltrates. There is no demonstrated pleural abnormality. There is borderline cardiomegaly. Normal mediastinum and heladio. Normal visualized pulmonary arteries. Normal visualized aortic arch and descending thoracic aorta. There are diffuse degenerative changes of the visualized thoracic spine. Normal visualized ribs, clavicles, and shoulders. There is no demonstrated abnormality of the visualized soft tissue structures of the upper abdomen. RAD/Chest 1 View (Portable) IMPRESSION: The tip of the endotracheal tube is at 3.5 sinus proximal to the ace. An orogastric tube is seen with the tip below the left hemidiaphragm. Increased interstitial markings more prominent in the lower lobes suggestive of a CHF with possible bibasilar atelectasis and/or early infiltrates. Electronically Signed: Joon Berkowitz MD at 10:16 EDT , Service support ,
--- NOTE | 2021-01-18 09:55 | RAD_ITS ---
STUDY: X-RAY - ABDOMEN/PELVIS REASON FOR EXAM: Male, 55 years old. OG TUBE PLACEMENT TECHNIQUE: Single AP view of the abdomen / pelvis. COMPARISON: None. FINDINGS: Increased markings at the lung bases. The tip of the orogastric tube is in the body of the stomach. There is an unremarkable bowel gas pattern. RAD/Abdomen Single View IMPRESSION: The tip of the orogastric tube is in the body of the stomach. Electronically Signed: Joon Berkowitz MD at 10:25 EDT , Service support ,
[2021-01-18 09:56] LABS: Absolute Lymphocyte Count 0.41 X10^3/uL (0.83-4.51); Absolute Neutrophil Count 9.9 X10^3/uL (2.0-7.7); Basophil# 0.02 X10^3/uL; Basophil% 0.2 % (0-1); Hemoglobin 16.3 g/dL (13.0-16.5); Lymphocyte # 0.41 X10^3/ul (0.83-4.51); Lymphocyte % 3.4 % (19-41); Mean Corp Hgb Conc 28.2 g/dL (32-36); Mean Corpuscular Volume 102.7 fL (80-94); Mean Platelet Vol. 11.2 fl (6.2-12.0); Monocyte# 1.66 X10^3/uL; Monocyte% 13.7 % (0-10); NRBC Flagged by Analyzer 0.2 % (0-5); Neutrophil # 9.92 X10^3/uL (2.7-7.7); POSITIVE COUNT YES; POSITIVE DIFFERENTIAL YES; Platelet Count 135 K/mm3 (150-450); RBC Distribution Width CV 17.6 % (11.6-14.6); RBC Distribution Width SD 64.5 fl (35.1-43.9); Red Blood Count 5.63 M/mm3 (4.6-6.2); White Blood Count 12.1 K/mm3 (4.4-11.0)
--- NOTE | 2021-01-18 10:02 | NURSING ---
PER LAB, CANCELLING PT, PTT. HEMOCRIT TOO HIGH SENDING A SPECIAL TUBE FOR MODIFIED BLUE TOP
[2021-01-18 10:10] LABS: AST(SGOT) 2193 U/L (15-37); Alanine Aminotransfer ALT/SGPT 1156 U/L (16-61); Albumin, Serum 3.6 g/dL (3.2-5.0); Alkaline Phosphatase 167 U/L (45-117); Anion Gap 15 (5-15); BUN 40 mg/dL (7-18); BUN/Creat Ratio 17.3 RATIO (10-20); Chloride 90 mmol/L (98-107); Creatinine, Serum 2.31 mg/dL (0.70-1.30); EST Glomerular Filtration Rate 31 mL/min (>60); Est Glom Filt Rate - Afr Amer 38 mL/min (>60); Estimated Creatinine Clearance 65.88 ml/min; Globulin 3.7 g/dL (2.2-4.2); Glucose 123 mg/dL (74-106); Potassium 5.1 mmol/L (3.5-5.1); Protein, Total 7.3 g/dL (6.4-8.2); Sodium Level 136 mmol/L (136-145)
[2021-01-18 10:15] LABS: Hematocrit 57.8 % (40-54)
[2021-01-18 10:16] LABS: Differential Indicated SCAN CRITERIA MET
[2021-01-18] MEDS: Propofol 10MG/Ml 1,000 MG/100 ML Bottle 7.6 MG CONT INF (10:24)
[2021-01-18 10:26] LABS: Differential Comment SCANNED
--- NOTE | 2021-01-18 10:28 | HP.PCM.HOS_ITS ---
HPI - General General Date of Admission: 01/18/21 HPI Narrative NOELLE SHINE, is a 55 M with a PMH as outlined who was admitted via the ED on 01/18/2021 with a complaint of shortness of breath which has been ongoing for about 2 weeks. He has also been blue in color for the last day or 2. He had gone to [facility] ~ 1 week ago but refused admission and left. He had no associated fevver or chills, and had a chronic cough. REview of systems was otherwise negative. Vitals in the ED showed temp of 96F, OK of 101 and RR of 23 and BP was 134/23. Stat ABG after he was placed on BIPAP read as pH of 7.17 with PCO2 of 72 and PO2 of 139. Patient was not really responding to BiPAP and remained very blue and had increased work of breathing so he was emergently intubated in the ED. Lactic acid done was 10. Creatinine was 2.31 and CBC showed hemoglobin of 16.3 with WBC of 12.1 and platelets of 135. Chest x-ray showed increased interstitial markings more prominent in the lower lobes suggestive of CHF with possible bibasilar atelectasis and/or early infiltrates. He has been admitted to be managed for acute hypoxic respiratory failure due to COPD exacerbation as well as probable heart failure of unknown EF. FOR[facility]LY [facility], [facility] Medical History (Updated 01/18/21 @ 10:[address] Dorian Juan MD) COPD (chronic obstructive pulmonary disease) Pneumonia Home Medications albuterol sulfate 1 - 2 puff INHALATION Q4H PRN PRN 01/12/18 [History Last Taken 02/26/18 07:45] albuterol sulfate 2.5 mg INHALATION BID 01/12/18 [History Last Taken 02/26/18 07:45] Allergy/AdvReac Type Severity Reaction Status Date / Time No Known Allergies Allergy Verified 01/18/21 09:18 Family History Father Heart disease Diabetes Surgical History History of vasectomy Social History Smoking Status: Current every day smoker tobacco type: cigarettes Tobacco: How many years used: 44 second hand exposure: Yes alcohol intake: current alcohol intake frequency: 3 or more drinks per day Alcohol type: beer and hard liquor substance use type: marijuana caffeine: Yes Type: coffee what type of physical activity do you participate in: none ROS Review of Systems ROS Unobtainable: due to encephalopathy, due to endotracheal tube and due to mental status Vital Signs Vital Signs Vital Signs: 01/18/21 09:14 01/18/21 09:17 01/18/21 09:18 Temperature 96 F L Temperature Source Temporal Pulse Rate 101 H Respiratory Rate 23 H Respiratory Effort Short of Breath Accessory Muscle Use Nasal Flaring Pursed Lip Head Bobbing Respiratory Depth Shallow Respiratory Pattern Irregular Blood Pressure 134/123 H Blood Pressure Mean 126 Pulse Ox 70 96 Oxygen Delivery Method Room Air Non-Rebreather Non-Rebreather Oxygen Flow Rate (L/min) 16 01/18/21 09:20 01/18/21 09:25 01/18/21 09:29 Temperature 96 F L 96 F L Temperature Source Temporal Temporal Pulse Rate 96 Respiratory Rate 14 Respiratory Effort Respiratory Depth Respiratory Pattern Blood Pressure 141/116 H Blood Pressure Mean 124 Pulse Ox 94 94 Oxygen Delivery Method Bi-pap Bi-pap Bi-pap Oxygen Flow Rate (L/min) 01/18/21 09:34 01/18/21 10:16 Temperature 96 F L Temperature Source Temporal Pulse Rate 93 89 Respiratory Rate 15 12 Respiratory Effort Respiratory Depth Respiratory Pattern Blood Pressure 134/110 H 165/127 H Blood Pressure Mean 118 139 Pulse Ox 98 100 Oxygen Delivery Method Bi-pap Mechanical Ventilator Oxygen Flow Rate (L/min) Weight Weight: 280 lb 13.903 oz Body Mass Index (BMI) 0.0 Physical Exam Const Constitutional Narrative: intubated, sedated, RASS score is -4 HEENT normocephalic and head/scalp atraumatic Eyes PERRL, EOMs intact bilaterally and conjunctivae normal Resp Resp Narrative: bilateral wheezing in all lung jett. intubated, sedated Cardio regular rate, regular rhythm, S1 normal heart sound, S2 normal heart sound and no murmurs GI normal to inspection, nondistended, normoactive bowel sounds, soft to palpation, non-tender and non-distended Extremity normal to inspection and no clubbing, cyanosis or edema Peripheral Pulses: Yes pulses 2+ throughout Skin no rashes or lesions noted Neuro Neuro Narrative: intubated, sedated. RASS score is -4. Results Lab / Micro Data Result Diagrams: 01/18/21 09:10 01/18/21 09:10 Labs: Laboratory Results - last 24 hr 01/18/21 01/18/21 01/18/21 09:10 09:10 09:10 WBC 12.1 H RBC 5.63 Hgb 16.3 Hct 57.8 H MCV 102.7 H MCH 29.0 MCHC 28.2 L RDW Std Deviation 64.5 H RDW Coeff of Etelvina 17.6 H Plt Count 135 L MPV 11.2 Immature Gran % (Auto) 0.700 Neut % (Auto) 82.0 H Lymph % (Auto) 3.4 L [place] % (Auto) 13.7 H Eos % (Auto) 0.0 Baso % (Auto) 0.2 Absolute Neuts (auto) 9.9 H Absolute Lymphs (auto) 0.41 L Nucleated RBC % 0.2 Differential Comment SCANNED PT INR APTT Sodium 136 Potassium 5.1 Chloride 90 L Carbon Dioxide 31.0 Anion Gap 15 BUN 40 H Creatinine 2.31 H Estim Creat Clear Calc 65.88 Est GFR (MDRD) Af Amer 38 L Est GFR (MDRD) Non-Af 31 L BUN/Creatinine Ratio 17.3 Glucose 123 H Lactic Acid 10.0 H* Calcium 9.0 Total Bilirubin 5.10 H AST 2193 H ALT 1156 H Alkaline Phosphatase 167 H Total Protein 7.3 Albumin 3.6 Globulin 3.7 Albumin/Globulin Ratio 1.0 01/18/21 09:32 WBC RBC Hgb Hct MCV MCH MCHC RDW Std Deviation RDW Coeff of Etelvina Plt Count MPV Immature Gran % (Auto) Neut % (Auto) Lymph % (Auto) [place] % (Auto) Eos % (Auto) Baso % (Auto) Absolute Neuts (auto) Absolute Lymphs (auto) Nucleated RBC % Differential Comment PT Cancelled INR Cancelled APTT Cancelled Sodium Potassium Chloride Carbon Dioxide Anion Gap BUN Creatinine Estim Creat Clear Calc Est GFR (MDRD) Af Amer Est GFR (MDRD) Non-Af BUN/Creatinine Ratio Glucose Lactic Acid Calcium Total Bilirubin AST ALT Alkaline Phosphatase Total Protein Albumin Globulin Albumin/Globulin Ratio ABG Data ABG results: ABG 01/18/21 09:44 Specimen Type ART Sample Site L Radial pH 7.18 L* Bicarbonate Actual 27.0 H Total CO2 29 Base Excess -1 O2 Saturation 98 O2 % 100 ABG pCO2 72.6 H* ABG pO2 139 H Vent Mode BiLevel POC PEEP 10 POC Pressure Suppt 28 Crit Call To/Read Back Yes Rhythm Strip Rhythm Strip: Sinus Rhythm Rate: 90 Ectopy: None Radiology Impression Chest X-Ray 01/18/21 09:55 IMPRESSION: The tip of the endotracheal tube is at 3.5 sinus proximal to the ace. An orogastric tube is seen with the tip below the left hemidiaphragm. Increased interstitial markings more prominent in the lower lobes suggestive of a CHF with possible bibasilar atelectasis and/or early infiltrates. Electronically Signed: Joon Berkowitz MD at 10:16 EDT , Service support , KUB X-Ray 01/18/21 09:55 IMPRESSION: The tip of the orogastric tube is in the body of the stomach. Electronically Signed: Joon Berkowitz MD at 10:25 EDT , Service support , Assessment & Plan Assessment/Plan (1) Respiratory failure: (2) Congestive heart failure: (3) Acidosis, lactic: (4) Acute kidney injury: PLAN: #Acute hypoxic and hypercapnic respiratory failure due to COPD exacerbation * Admit to ICU. Patient emergently intubated in the ED. * Vent settings as per critical care. * Titrate oxygen to maintain saturation above 90% * IV Solu-Medrol 40 mg every 8 * Patient meets criteria for sepsis but does appear like all this is due to his hypoxia as patient was literally blue on admission. Lactic acid was 10 and this is also likely due to patient being blue. * Will however cover patient with empiric antibiotics and get blood cultures and sputum cultures. * consult critical care * order 2D echo; cycle troponins * diurese with IV lasix due to concerns about heart failure exacerbation * sedated with propofol and fentanul * #Acute COPD exacerbation: as above #Acute heart failure of unknown EF * kidney function is impaired, so will hold off on diuretics for now. * order 2D echo * monitor intake and output. Fluid restriction to 1500cc daily. * #Septic shock * Patient was tachycardic and tachypneic and also has elevated lactic acid. He therefore meets the criteria for septic shock per Lactic acid criteria * will start on broad spectrum antibiotics for now. * hold off on IVF due to concerns about heart failure * get blood cultures * #ERYN * Creatinine is 2.31; no baseline in the system * cant hydrate with IVF as patient may also be fluid overloaded, annd so is being diuresed * will trend Cr * #Elevated BP * Blood pressure was 176/109 at time of arrival. Patient does not appear to be a known hypertensive. This may be due to his respiratory failure as well and increased work of breathing * IV hydralazine as needed. If blood pressure remains elevated, will consider starting blood pressure medications. * DVT prophylaxis: lovenox Code status: full code * CODE STATUS discussed with his indicated that she wanted patient to be full code. * Total [id number] time 17 minutes. Charges/Coding Visit Charges Inpatient E&M: 67207 Init Hosp L3 Procedures Hospitalists Procedures: 47244 Advncd Care Plan 30 Min
--- NOTE | 2021-01-18 10:29 | NURSING ---
DR RUBEN MOSQUEDA
[2021-01-18] MEDS: LORazepam 2 MG/ML Syringe 1 MG IV (10:33)
--- NOTE | 2021-01-18 10:33 | ED.RN ---
FOR INTUBATION PER DR MOSQUEDA ETOMIDATE 20MG AND SUCC 100 MG GIVEN. THIS RN UNABLE TO ADD TO ORDERS. DR. MOSQUEDA AWARE THAT ORDERS NEED ADDED.
--- NOTE | 2021-01-18 10:40 | NURSING ---
ICU [facility] RESP FAILURE, COPD, CHF, LACTIC ACIDOSIS
[2021-01-18 10:46] LABS: BNP,B-Type NATRIURETIC PEPTIDE 1019.4 pg/mL (0-100)
--- NOTE | 2021-01-18 10:55 | NURSING ---
ICU 2
[2021-01-18 11:01] LABS: International Normalized Ratio 2.7; Partial Thromboplast Time 27.4 Seconds (24.1-36.2)
[2021-01-18 11:15] LABS: Mucous, Urine 0 SEEN /hpf (<or=2+)
[2021-01-18 11:16] LABS: Color, Urine Yellow (Yellow); Glucose, Dipstick 50 mg/dl (Normal); Ketone-Dipstick 5 mg/dl (Negative); Leukocyte Esterase-Dipstick 25 /ul (Negative); Nitrite-Dipstick Positive (Negative); Occult Blood-Urine 25 /ul (Negative); Protein-Dipstick 100 mg/dl (Negative); Urine Clarity Clear (Clear); Urine Urobilinogen 8 mg/dl (Normal)
[2021-01-18 11:19] LABS: Urine Bilirubin Dipstick 1 mg/dL (Negative)
[2021-01-18 11:24] LABS: Bacteria 1+ /hpf (None Seen); Red Blood Cells-Urine 0-5 SEEN /hpf (0-5); Squamous Epithelial Cells - UA 0-5 SEEN /hpf (0-5); White Blood Cells 0-5 SEEN /hpf (0-5)
[2021-01-18 11:50] LABS: Allen Test Positive; Base Excess 2 mmol/L (-2 to +2); Bicarbonate 29.8 mmol/L (22-26); Blood Gas Specimen Type ART; FI02 50; Mode AC; O2 Delivery Device Adult Vent; PEEP 5; PO2 68 mmHG (75-100); RR 12; SITE R Radial; SO2 88 % (95-99); Total Carbon Dioxide 32 mmol/L; Vt 500; pCO2 75.3 mmHg (35-45); pH 7.21 (7.35-7.45)
--- NOTE | 2021-01-18 13:40 | CON.PCM.CC_ITS ---
Assessment & Plan Assessment/Plan (1) Respiratory failure: PLAN: RECOMMENDATIONS: 1. Continue patient on assist control mode of mechanical ventilation. 2. Wean FiO2 and PEEP to maintain saturations at or above 90%. 3. Continue empiric antimicrobials, pending infectious work-up. 4. Send repeat lactate. 5. Obtain and send sputum for culture. 6. Continue scheduled bronchodilators and steroids. 7. Obtain echocardiogram. 8. Obtain arterial blood gas in 1 hour. 9. Check troponin. 10. Check GGT, lipase and obtain liver ultrasound. IMPRESSIONS: 1. Acute on chronic combined respiratory failure Concern for multifactorial etiology, with underlying pulmonary infectious process leading to COPD exacerbation along with possible decompensated heart failure contributing. The patient did require intubation in the emergency department after failing to respond to noninvasive positive pressure ventilatory support. Recommend continuing assist control mode mechanical ventilation. Wean FiO2 and PEEP to maintain saturations at or above 90%. Continue empiric antimicrobials, pending infectious work-up. Obtain and send repeat lactate level. Obtain arterial blood gas in 1 hour. Order for echocardiogram is pending. Currently, the patient's renal function and hemodynamic status would likely preclude the use of diuretics. Recommend starting scheduled bronchodilators and steroids. 2. Chronic tobacco dependency/history of alcohol dependency Continues supportive measures as noted above. We will need to confirm with the patient's family his current use of tobacco and alcohol. In the interim, [facility] hodilators will be continued. 3. Acute versus chronic kidney disease Likely prerenal in etiology and related to acute presentation. Anticipate improvement with final expansion. Continue to monitor urine output for now. No current indication for renal replacement therapy. 4. Acute liver injury Unclear etiology. Will check GGT, lipase and obtain liver ultrasound. Recheck liver function profile tomorrow morning. TIME: 40 minutes of critical care time, independent of procedures, was spent addressing the patient's acute on chronic combined respiratory failure, chronic tobacco/alcohol dependency, acute versus chronic kidney disease, acute liver injury, review of all data and collaboration with the care team. ([id number]) HPI Consult Data Date of Consult: 01/19/21 HPI Narrative Reason for Consultation: Acute on chronic combined respiratory failure HPI Narrative: The patient is a 55-year-old male, with a history as outlined below, who presented to the emergency department on January 18 with complaints of shortness of breath. History pertinent to the patient's hospitalization was obtained primarily via chart review, as the patient is currently intubated and there is no family available at the bedside. The patient does have an extensive smoking history of 2 to 3 packs/day. The patient has smoked for 40+ years. He was previously diagnosed with COPD and chronic hypoxemic respiratory failure. During a prior encounter that I had with the patient in February 2018, he did report daily marijuana use and alcohol consumption of upwards of 12-18 beers per day. On presentation to the emergency department, the patient was noted to be afebrile and hemodynamically stable. Laboratory evaluation revealed a white blood cell count of 12,000. Platelet count was low at 135,000. Chemistry profile was notable for a creatinine of 2.31. Lactate was elevated to 10. Total bili was increased to 5.1. AST and ALT were increased to 2193 and 1156, respectively. Alkaline phosphatase was increased to 167. BNP was elevated to 1019. The patient did require noninvasive positive pressure ventilatory support. However, the patient failed to improve on BiPAP and was subsequently intubated. The patient did receive antimicrobials, bronchodilators and steroids. He was subsequently admitted to the medical intensive care unit for further management. [facility] Medical History (Updated 01/18/21 @ 10:[address] Dorian Juan MD) COPD (chronic obstructive pulmonary disease) Pneumonia Home Medications albuterol sulfate 1 - 2 puff INHALATION Q4H PRN PRN 01/12/18 [History Last Taken 02/26/18 07:45] albuterol sulfate 2.5 mg INHALATION BID 01/12/18 [History Last Taken 02/26/18 07:45] Allergy/AdvReac Type Severity Reaction Status Date / Time No Known Allergies Allergy Verified 01/18/21 09:18 Family History Father Heart disease Diabetes Surgical History History of vasectomy Social History Smoking Status: Current every day smoker tobacco type: cigarettes Tobacco: How many years used: 44 second hand exposure: Yes alcohol intake: current alcohol intake frequency: 3 or more drinks per day Alcohol type: beer and hard liquor substance use type: marijuana caffeine: Yes Type: coffee what type of physical activity do you participate in: none ROS Review of Systems ROS Unobtainable: due to endotracheal tube and due to mental status Physical Exam Const no apparent distress General Appearance: intubated and patient mechanically ventilated Nutritional Appearance: morbidly obese HEENT normocephalic and head/scalp atraumatic Mouth: endotracheal tube in place and OG tube in place Eyes PERRL and conjunctivae normal Neck supple General: trachea midline Resp Auscultation: wheezes and diminished lung sounds; Negative for rales or rhonchi Cardio regular rate and regular rhythm GI normal to inspection, nondistended, normoactive bowel sounds Extremity General Extremity: edema bilateral lower extremity Skin no rashes or lesions noted Neuro Sensorium / Orientation: sedated on vent Lab / Micro Data Result Diagrams: 01/19/21 03:46 01/19/21 03:46 Labs: Laboratory Results - last 24 hr 01/18/21 01/18/21 01/18/21 09:10 09:10 09:10 WBC 12.1 H RBC 5.63 Hgb 16.3 Hct 57.8 H MCV 102.7 H MCH 29.0 MCHC 28.2 L RDW Std Deviation 64.5 H RDW Coeff of Etelvina 17.6 H Plt Count 135 L MPV 11.2 Immature Gran % (Auto) 0.700 Neut % (Auto) 82.0 H Lymph % (Auto) 3.4 L [place] % (Auto) 13.7 H Eos % (Auto) 0.0 Baso % (Auto) 0.2 Absolute Neuts (auto) 9.9 H Absolute Lymphs (auto) 0.41 L Nucleated RBC % 0.2 Differential Comment SCANNED PT INR APTT Sodium 136 Potassium 5.1 Chloride 90 L Carbon Dioxide 31.0 Anion Gap 15 BUN 40 H Creatinine 2.31 H Estim Creat Clear Calc 65.88 Est GFR (MDRD) Af Amer 38 L Est GFR (MDRD) Non-Af 31 L BUN/Creatinine Ratio 17.3 Glucose 123 H Lactic Acid 10.0 H* Calcium 9.0 Total Bilirubin 5.10 H AST 2193 H ALT 1156 H Alkaline Phosphatase 167 H B-Natriuretic Peptide Total Protein 7.3 Albumin 3.6 Globulin 3.7 Albumin/Globulin Ratio 1.0 Urine Color Urine Clarity Urine pH Ur Specific [place] Urine Protein Urine Glucose (UA) Urine Ketones Urine Occult Blood Urine Nitrite Urine Bilirubin Urine Urobilinogen Ur Leukocyte Esterase Urine RBC Urine WBC Ur Squamous Epith Cells Urine Bacteria Urine Mucus 01/18/21 01/18/21 01/18/21 09:10 09:32 10:40 WBC RBC Hgb Hct MCV MCH MCHC RDW Std Deviation RDW Coeff of Etelvina Plt Count MPV Immature Gran % (Auto) Neut % (Auto) Lymph % (Auto) Branch % (Auto) Eos % (Auto) Baso % (Auto) Absolute Neuts (auto) Absolute Lymphs (auto) Nucleated RBC % Differential Comment PT Cancelled 28.0 H INR Cancelled 2.7 APTT Cancelled 27.4 Sodium Potassium Chloride Carbon Dioxide Anion Gap BUN Creatinine Estim Creat Clear Calc Est GFR (MDRD) Af Amer Est GFR (MDRD) Non-Af BUN/Creatinine Ratio Glucose Lactic Acid Calcium Total Bilirubin AST ALT Alkaline Phosphatase B-Natriuretic Peptide 1019.4 H Total Protein Albumin Globulin Albumin/Globulin Ratio Urine Color Urine Clarity Urine pH Ur Specific [place] Urine Protein Urine Glucose (UA) Urine Ketones Urine Occult Blood Urine Nitrite Urine Bilirubin Urine Urobilinogen Ur Leukocyte Esterase Urine RBC Urine WBC Ur Squamous Epith Cells Urine Bacteria Urine Mucus 01/18/21 11:07 WBC RBC Hgb Hct MCV MCH MCHC RDW Std Deviation RDW Coeff of Etelvina Plt Count MPV Immature Gran % (Auto) Neut % (Auto) Lymph % (Auto) Branch % (Auto) Eos % (Auto) Baso % (Auto) Absolute Neuts (auto) Absolute Lymphs (auto) Nucleated RBC % Differential Comment PT INR APTT Sodium Potassium Chloride Carbon Dioxide Anion Gap BUN Creatinine Estim Creat Clear Calc Est GFR (MDRD) Af Amer Est GFR (MDRD) Non-Af BUN/Creatinine Ratio Glucose Lactic Acid Calcium Total Bilirubin AST ALT Alkaline Phosphatase B-Natriuretic Peptide Total Protein Albumin Globulin Albumin/Globulin Ratio Urine Color Yellow Urine Clarity Clear Urine pH 5.0 Ur Specific [place] 1.030 Urine Protein 100 H Urine Glucose (UA) 50 H Urine Ketones 5 H Urine Occult Blood 25 H Urine Nitrite Positive H Urine Bilirubin 1 H Urine Urobilinogen 8 H Ur Leukocyte Esterase 25 H Urine RBC 0-5 SEEN Urine WBC 0-5 SEEN Ur Squamous Epith Cells 0-5 SEEN Urine Bacteria 1+ Urine Mucus 0 SEEN Micro: Microbiology 01/18/21 11:22 Gram Stain - Final Sputum, Tracheal Aspirate 01/18/21 12:30 SARS-CoV-2 Antigen (Rapid) - Final Interface Orders 01/18/21 Unknown Legionella Antigen - Final Urine Catheter - Reyez Streptococcus pneumoniae Antigen (M - Final ABG Data ABG results: ABG 01/18/21 01/18/21 09:44 11:43 Specimen Type ART ART Sample Site L Radial R Radial pH 7.18 L* 7.21 L Bicarbonate Actual 27.0 H 29.8 H Total CO2 29 32 Base Excess -1 2 O2 Saturation 98 88 L O2 % 100 50 ABG pCO2 72.6 H* 75.3 H* ABG pO2 139 H 68 L [place] Test Positive Respiration Rate 12 O2 Delivery Device Adult Vent Vent Mode BiLevel AC Tidal Volume 500 POC PEEP 10 5 POC Pressure Suppt 28 Crit Call To/Read Back Yes Yes Blood Gas Notified Whom brown Rhythm Strip Rhythm Strip: Sinus Rhythm Rate: 90 Ectopy: None Radiology Impression Chest X-Ray 01/18/21 09:55 IMPRESSION: The tip of the endotracheal tube is at 3.5 sinus proximal to the ace. An orogastric tube is seen with the tip below the left hemidiaphragm. Increased interstitial markings more prominent in the lower lobes suggestive of a CHF with possible bibasilar atelectasis and/or early infiltrates. Electronically Signed: Joon Berkowitz MD at 10:16 EDT , Service support , KUB X-Ray 01/18/21 09:55 IMPRESSION: The tip of the orogastric tube is in the body of the stomach. Electronically Signed: Joon Berkowitz MD at 10:25 EDT , Service support , Charges/Coding Procedures Hospitalists Procedures: [id number] Critial Care 1st Hr
[2021-01-18 13:54] LABS: Reflex Lactate? Y
[2021-01-18] MEDS: Propofol 10MG/Ml 1,000 MG/100 ML Bottle 15.3 MG CONT INF ×2 (14:08→20:36)
[2021-01-18] MEDS: 0.9% Saline Lock 10 ML Syringe IV (14:09)
--- NOTE | 2021-01-18 14:11 | US_ITS ---
STUDY: ABDOMINAL ULTRASOUND - RIGHT UPPER QUADRANT REASON FOR VISIT: Male, 55 years old Acute Liver Injury TECHNIQUE: Ultrasound evaluation of the right upper quadrant was performed with real-time and static jama-scale imaging. TECHNICAL QUALITY: Limited. Examination limited due to a combination of factors including obesity and bowel gas. COMPARISON: None. FINDINGS: Liver: The liver measures 19 cm. There is normal echogenicity of the liver. The bile ducts are within normal limits. There is hepatic color flow. The direction of portal flow is hepatopetal. There is no demonstrated mass lesion. Gallbladder: Partially distended gallbladder. The gallbladder wall measures 4.3 mm. There is a negative sonographic Bobo''s sign. There is no pericholecystic fluid. There is biliary sludge dependent within the gallbladder. Common Bile Duct (C.B.D.): The common bile duct measures 4.8 mm. Pancreas: Not well seen. There is no demonstrated pancreatic mass or cyst. Right Kidney: Normal size of the right kidney. There is no demonstrated renal mass or cyst. There is no right hydronephrosis. Mild ascites in the right upper, right lower and left lower quadrants. US/Liver IMPRESSION: 1. No hepatic masses or biliary dilation. Patent portal vein. 2. Mild ascites. 3. Mild gallbladder wall thickening (only partially distended gallbladder) and gallbladder sludge. Negative sonographic BOBO sign. Pericholecystic fluid could be related to ascites. Equivocal for cholecystitis. If there is high clinical suspicion for cholecystitis, recommend HIDA scan. Electronically Signed: Ruperto Jeter MD ([place]) at 14:11 EDT , Service support ,
--- NOTE | 2021-01-18 14:17 | NT.THERAPY_ITS ---
Medical Nutrition Therapy - History Nutrition Services has been consulted to:: Manage enteral nutrition Current diet/nutrition support order:: No diet ordered at this time - Anthropometric Measurements Height:: 5 ft 7 in Weight:: 126.5 kg Body Mass Index (BMI):: 43.7 - Relevant Labs Relevant Labs:: WBC 12.1 K/mm3 (4.4-11.0) H 01/18/21 09:10 Hct 57.8 % (40-54) H 01/18/21 09:10 MCV 102.7 fL (80-94) H 01/18/21 09:10 MCHC 28.2 g/dL (32-36) L 01/18/21 09:10 RDW Std Deviation 64.5 fl (35.1-43.9) H 01/18/21 09:10 RDW Coeff of [place]elv[place] 17.6 % (11.6-14.6) H 01/18/21 09:10 Plt Count 135 K/mm3 (150-450) L 01/18/21 09:10 Neut % (Auto) 82.0 % (47-70) H 01/18/21 09:10 Lymph % (Auto) 3.4 % (19-41) L 01/18/21 09:10 [place] % (Auto) 13.7 % (0-10) H 01/18/21 09:10 Absolute Neuts (auto) 9.9 X10^3/uL (2.0-7.7) H 01/18/21 09:10 Absolute Lymphs (auto) 0.41 X10^3/uL (0.83-4.51) L 01/18/21 09:10 PT 28.0 SECONDS (11.7-14.9) H 01/18/21 10:40 Chloride 90 mmol/L (98-107) L 01/18/21 09:10 BUN 40 mg/dL (7-18) H 01/18/21 09:10 Creatinine 2.31 mg/dL (0.70-1.30) H 01/18/21 09:10 Est GFR (MDRD) Af Amer 38 mL/min (>60) L 01/18/21 09:10 Est GFR (MDRD) Non-Af 31 mL/min (>60) L 01/18/21 09:10 Glucose 123 mg/dL (74-106) H 01/18/21 09:10 Lactic Acid 10.0 mmol/L (0.4-1.9) H* 01/18/21 09:10 Total Bilirubin 5.10 mg/dL (0.20-1.00) H 01/18/21 09:10 AST 2193 U/L (15-37) H 01/18/21 09:10 ALT 1156 U/L (16-61) H 01/18/21 09:10 Alkaline Phosphatase 167 U/L (45-117) H 01/18/21 09:10 B-Natriuretic Peptide 1019.4 pg/mL (0-100) H 01/18/21 09:10 - Assessment Food and Nutrient Intake: Per EMR - wt 12/10/17 = 99.337 kg indicating 27% wt increase x 3+ yrs. - Nutrition Diagnosis: Intake Problem Inadequate Oral Intake Intake Problem - Etiology: related to resp failure and requiring mechanical ventilation Intake Problem - Signs/Symptoms: as evidenced by not able to have po diet at this time Status: Active Problem - Protein Calorie Malnutrition Evidence of Malnutrition Exists: No - Nutrition Intervention Nutrition Prescription: Used ASPEN guidelines for morbidly obese critically ill pts: 22-25 tmara//kg IBW = 9629-7004 tamra/day. 2 gm pro/kg IBW = 134 gm/d. 1480- 1681 ml fluid/day = 1 ml/tamra - Food / Nutrient Delivery Interventions Summary of nutrition intervention:: Order/adjust enteral nutrition Nutrition support ordered as / adjusted to:: *If NPO and vent support to continue, rec Vital High Protein at goal rate 65 ml/hr with 45 ml H2O flush every 4 hours to provide ~ 1560 tamra/ 136 gm pro / 1574 ml free water/ day. Would start tf at 25 ml/hr and increase by 20 ml/hr every 8-10 hrs as pt tolerates until goal rate of 65 ml/hr achieved. *When able to resume po diet, rec diet as tolerated to Regular Sodium restricted d/t hx CKD. Nutrition education provided?: No - MNT Monitoring Active Nutrition Patient: Yes Nutrition Status: Requires Follow Up in 1-2 Days - please call RD/LD if questions / concerns at [phone]
[2021-01-18 14:30] LABS: Troponin-I HS 30.6 pg/mL (3.0-78.5)
[2021-01-18 14:44] LABS: Lactic Acid 6.6 mmol/L (0.4-1.9)
[2021-01-18 15:41] LABS: GGTP 75 U/L (15-85); Lipase 60 U/L (73-393)
--- NOTE | 2021-01-18 15:43 | PCM.RX.CS ---
Consult Pharmacy has been consulted to manage selected antiobiotic: Vancomycin Type of Consult: New start Suspected Infection: Pneumonia Labs: Sodium 136 mmol/L (136-145) 01/18/21 09:10 Potassium 5.1 mmol/L (3.5-5.1) 01/18/21 09:10 Chloride 90 mmol/L (98-107) L 01/18/21 09:10 Carbon Dioxide 31.0 mmol/L (21.0-32.0) 01/18/21 09:10 Anion Gap 15 (5-15) 01/18/21 09:10 BUN 40 mg/dL (7-18) H 01/18/21 09:10 Creatinine 2.31 mg/dL (0.70-1.30) H 01/18/21 09:10 Est GFR (MDRD) Af Amer 38 mL/min (>60) L 01/18/21 09:10 Est GFR (MDRD) Non-Af 31 mL/min (>60) L 01/18/21 09:10 BUN/Creatinine Ratio 17.3 RATIO (10-20) 01/18/21 09:10 Glucose 123 mg/dL (74-106) H 01/18/21 09:10 Microbiology: Microbiology 01/18/21 11:22 Sputum, Tracheal Aspirate Gram Stain - Final 01/18/21 12:30 Interface Orders SARS-CoV-2 Antigen (Rapid) - Final 01/18/21 Unknown Urine Catheter - Reyez Legionella Antigen - Final 01/18/21 Unknown Urine Catheter - Reyez Streptococcus pneumoniae Antigen (M - Final Goal Trough: 15-20 mcg/mL Pharmacy Plan for Drug Dosing: NEW START IV VANCOMYCIN Consulting Physician: ANJALI Indication: PNEUMONIA Goal Trough: 15-20 MG/DL SrCr: 2.31 MG/DL CrCl: 46.7 ML/MIN (USING ADJUSTED BODY WEIGHT OF 90.26KG) Comments: LOADING DOSE OF 2000MG X1 GIVEN 01/18 @ 1520 Vancomycin Dose: START 1000MG Q12H 01/19 @ 0300. TROUGH PRIOR TO 4TH TOTAL DOSE OF REGIMEN. Pending Level: 01/20/21 @ 0230 Pharmacy Service will continue to monitor and adjust dosing as required.
[2021-01-18 15:46] LABS: Allen Test Positive; Base Excess 5 mmol/L (-2 to +2); Bicarbonate 29.1 mmol/L (22-26); Blood Gas Specimen Type ART; FI02 60; Mode AC; O2 Delivery Device Adult Vent; PEEP 5; PO2 79 mmHG (75-100); RR 14; SITE R Radial; SO2 96 % (95-99); Total Carbon Dioxide 31 mmol/L; Vt 500; pCO2 44.7 mmHg (35-45); pH 7.42 (7.35-7.45)
[2021-01-18 17:35] LABS: M R Staph aureus DNA By PCR Negative (Negative); Probe Check PASS; Specimen Processing Control PASS
[2021-01-18 20:15] LABS: Troponin-I HS 31.9 pg/mL (3.0-78.5)
--- NOTE | 2021-01-18 21:10 | NURSING ---
Incorrect contact information noted for Maxime Murray who is patients next of kin. Unable to reach family member to give consent for Picc line/midline which is needed due to patients sedation. [facility] office contacted to go to address listed and have next of kin call the hospital.
[2021-01-18 21:59] LABS: Troponin-I HS 34.2 pg/mL (3.0-78.5)
--- NOTE | 2021-01-18 22:30 | NURSING ---
[facility]'s office calls to notify that the patien'ts next of kin Maxime Murray was not at the location listed as the address on file. Another person was living there.
[2021-01-18] MEDS: Chlorhexidine 15 ML PO (22:49)
[2021-01-19] VITALS (35 sets, daily range): BP systolic 105–163; BP diastolic 69–106; PULSE 84–101; RESP 12–22; TEMP 36.5–37.2; O2SAT 90–97
[2021-01-19 01:50] LABS: Troponin-I HS 40.3 pg/mL (3.0-78.5)
[2021-01-19] MEDS: Vancomycin IV 1,000 MG/200 ML BAG 200 MG IV (02:22)
[2021-01-19] MEDS: Ipratropium/Albuterol Sulfate 3 ML AMPUL.NEB INHALATION ×6 (02:54→22:34)
[2021-01-19] MEDS: Propofol 10MG/Ml 1,000 MG/100 ML Bottle 11.5 MG CONT INF (03:33)
[2021-01-19] MEDS: CHLORHEXIDINE GLUC 2% CLOTH 1 EACH TOWELETTE TOPICAL (03:44)
[2021-01-19 03:58] LABS: Absolute Lymphocyte Count 0.42 X10^3/uL (0.83-4.51); Absolute Neutrophil Count 11.2 X10^3/uL (2.0-7.7); Basophil# 0.01 X10^3/uL; Basophil% 0.1 % (0-1); Hematocrit 49.2 % (40-54); Lymphocyte # 0.42 X10^3/ul (0.83-4.51); Lymphocyte % 3.4 % (19-41); Mean Corp Hgb Conc 32.5 g/dL (32-36); Mean Corpuscular Hgb 28.9 pg (27.0-32.0); Mean Corpuscular Volume 88.8 fL (80-94); Mean Platelet Vol. 10.9 fl (6.2-12.0); Monocyte# 0.54 X10^3/uL; Monocyte% 4.4 % (0-10); NRBC Flagged by Analyzer 0 % (0-5); Neutrophil % 91.6 % (47-70); POSITIVE DIFFERENTIAL YES; Platelet Count 100 K/mm3 (150-450); RBC Distribution Width CV 16.1 % (11.6-14.6); RBC Distribution Width SD 50.4 fl (35.1-43.9); Red Blood Count 5.54 M/mm3 (4.6-6.2); White Blood Count 12.2 K/mm3 (4.4-11.0)
[2021-01-19 04:09] LABS: Differential Indicated SCAN CRITERIA MET
[2021-01-19 04:12] LABS: Anion Gap 7 (5-15); BUN 49 mg/dL (7-18); Calcium,Total 8.2 mg/dL (8.5-10.1); Chloride 92 mmol/L (98-107); Creatinine, Serum 1.69 mg/dL (0.70-1.30); EST Glomerular Filtration Rate 45 mL/min (>60); Est Glom Filt Rate - Afr Amer 55 mL/min (>60); Estimated Creatinine Clearance 46.72 ml/min; Glucose 154 mg/dL (74-106); Potassium 4.8 mmol/L (3.5-5.1); Sodium Level 136 mmol/L (136-145)
[2021-01-19] MEDS: TITRATION PARAMETER CHANGE 1 EACH IV (05:55)
--- NOTE | 2021-01-19 06:48 | PN.CC_ITS ---
Assessment & Plan Assessment/Plan (1) Respiratory failure: PLAN: RECOMMENDATIONS: 1. Continue patient on assist control mode of mechanical ventilation. 2. Wean FiO2 and PEEP to maintain saturations at or above 90%. 3. Continue empiric antimicrobials, pending infectious work-up. 4. Continue scheduled bronchodilators and steroids. 5. Obtain echocardiogram. 6. Okay to start tube feeds today from my perspective. 7. Continue appropriate ICU prophylaxis. IMPRESSIONS: 1. Acute on chronic combined respiratory failure Concern for multifactorial etiology, with underlying pulmonary infectious process leading to COPD exacerbation along with possible decompensated heart failure contributing. The patient did require intubation in the emergency department after failing to respond to noninvasive positive pressure ventilatory support. Recommend continuing assist control mode mechanical ventilation. Wean FiO2 and PEEP to maintain saturations at or above 90%. Continue empiric antimicrobials, pending infectious work-up. Echocardiogram is pending. Currently, the patient's renal function would likely preclude the use of diuretics. Continue scheduled bronchodilator therapy and IV steroids. 2. Chronic tobacco dependency/history of alcohol dependency Continues supportive measures as noted above. We will need to confirm with the patient's family his current use of tobacco and alcohol. In the interim, bronchodilators will be continued. 3. Acute versus chronic kidney disease Improving. Likely prerenal in etiology and related to acute presentation. Continue to monitor urine output for now. No current indication for renal replacement therapy. 4. Acute liver injury Unclear etiology. GGT and lipase were normal. Liver ultrasound is pending. Recheck liver function this morning. TIME: 35 minutes of critical care time, independent of procedures, was spent addressing the patient's acute on chronic combined respiratory failure, chronic tobacco/alcohol dependency, acute versus chronic kidney disease, acute liver injury, review of all data and collaboration with the care team. ([id number]) Subjective Subjective The patient was seen and examined at the bedside this morning. Events from the last 24 hours have been reviewed. The patient is currently afebrile, hemodynamically stable and maintaining appropriate oxygen saturations on assist control mode of mechanical ventilation with an FiO2 requirement of 35%. The patient failed his spontaneous awakening trial this morning. Per nursing report, he has had a great deal of secretions from his endotracheal tube. Creatinine has improved this morning to 1.69. MRSA screen was negative. Objective Data Objective Data The patient's most recent lab work, culture data and imaging studies have all been personally reviewed. Rapid coronavirus antigen testing was negative. Strep and urine Legionella antigens were negative. Blood, urine and sputum cultures are pending. Vital Signs: Vital Signs Temp Pulse Resp BP Pulse Ox 98.6 F 95 14 161/98 H 92 01/19/21 05:59 01/19/21 05:59 01/19/21 05:59 01/19/21 05:59 01/19/21 05:59 Oxygen Flow Rate (L/min) 16 Oxygen Delivery Method Mechanical Ventilator Weight: 276 lb 0.3 oz Body Mass Index (BMI) 43.7 Intake & Output: Intake and Output for Last 24 Hours 01/17/21 01/18/21 01/19/21 23:59 23:59 23:59 Intake Total 1117.51 / 1135.31 372.59 / 372.59 Output Total 500 / 500 625 / 625 Balance 617.51 / 635.31 -252.41 / -252.41 Lab / Micro Data Attestation: I reviewed the patient's lab results. Result Diagrams: 01/19/21 03:46 01/19/21 03:46 Labs: Laboratory Results - last 24 hr 01/18/21 01/18/21 01/18/21 09:10 09:10 09:10 WBC 12.1 H RBC 5.63 Hgb 16.3 Hct 57.8 H MCV 102.7 H MCH 29.0 MCHC 28.2 L RDW Std Deviation 64.5 H RDW Coeff of Etelvina 17.6 H Plt Count 135 L MPV 11.2 Immature Gran % (Auto) 0.700 Neut % (Auto) 82.0 H Lymph % (Auto) 3.4 L [place] % (Auto) 13.7 H Eos % (Auto) 0.0 Baso % (Auto) 0.2 Absolute Neuts (auto) 9.9 H Absolute Lymphs (auto) 0.41 L Nucleated RBC % 0.2 Differential Comment SCANNED Diff Path Review May foll PT INR APTT Sodium 136 Potassium 5.1 Chloride 90 L Carbon Dioxide 31.0 Anion Gap 15 BUN 40 H Creatinine 2.31 H Estim Creat Clear Calc 65.88 Est GFR (MDRD) Af Amer 38 L Est GFR (MDRD) Non-Af 31 L BUN/Creatinine Ratio 17.3 Glucose 123 H Lactic Acid 10.0 H* Calcium 9.0 Total Bilirubin 5.10 H GGT AST 2193 H ALT 1156 H Alkaline Phosphatase 167 H Troponin I High Sens B-Natriuretic Peptide Total Protein 7.3 Albumin 3.6 Globulin 3.7 Albumin/Globulin Ratio 1.0 Lipase Urine Color Urine Clarity Urine pH Ur Specific [place] Urine Protein Urine Glucose (UA) Urine Ketones Urine Occult Blood Urine Nitrite Urine Bilirubin Urine Urobilinogen Ur Leukocyte Esterase Urine RBC Urine WBC Ur Squamous Epith Cells Urine Bacteria Urine Mucus MRSA (PCR) 01/18/21 01/18/21 01/18/21 09:10 09:32 10:40 WBC RBC Hgb Hct MCV MCH MCHC RDW Std Deviation RDW Coeff of Etelvina Plt Count MPV Immature Gran % (Auto) Neut % (Auto) Lymph % (Auto) [place] % (Auto) Eos % (Auto) Baso % (Auto) Absolute Neuts (auto) Absolute Lymphs (auto) Nucleated RBC % Differential Comment Diff Path Review PT Cancelled 28.0 H INR Cancelled 2.7 APTT Cancelled 27.4 Sodium Potassium Chloride Carbon Dioxide Anion Gap BUN Creatinine Estim Creat Clear Calc Est GFR (MDRD) Af Amer Est GFR (MDRD) Non-Af BUN/Creatinine Ratio Glucose Lactic Acid Calcium Total Bilirubin GGT AST ALT Alkaline Phosphatase Troponin I High Sens B-Natriuretic Peptide 1019.4 H Total Protein Albumin Globulin Albumin/Globulin Ratio Lipase Urine Color Urine Clarity Urine pH Ur Specific [place] Urine Protein Urine Glucose (UA) Urine Ketones Urine Occult Blood Urine Nitrite Urine Bilirubin Urine Urobilinogen Ur Leukocyte Esterase Urine RBC Urine WBC Ur Squamous Epith Cells Urine Bacteria Urine Mucus MRSA (PCR) 01/18/21 01/18/21 01/18/21 11:07 14:00 14:00 WBC RBC Hgb Hct MCV MCH MCHC RDW Std Deviation RDW Coeff of Etelvina Plt Count MPV Immature Gran % (Auto) Neut % (Auto) Lymph % (Auto) [place] % (Auto) Eos % (Auto) Baso % (Auto) Absolute Neuts (auto) Absolute Lymphs (auto) Nucleated RBC % Differential Comment Diff Path Review PT INR APTT Sodium Potassium Chloride Carbon Dioxide Anion Gap BUN Creatinine Estim Creat Clear Calc Est GFR (MDRD) Af Amer Est GFR (MDRD) Non-Af BUN/Creatinine Ratio Glucose Lactic Acid Calcium Total Bilirubin GGT 75 AST ALT Alkaline Phosphatase Troponin I High Sens 30.6 B-Natriuretic Peptide Total Protein Albumin Globulin Albumin/Globulin Ratio Lipase 60 L Urine Color Yellow Urine Clarity Clear Urine pH 5.0 Ur Specific [place] 1.030 Urine Protein 100 H Urine Glucose (UA) 50 H Urine Ketones 5 H Urine Occult Blood 25 H Urine Nitrite Positive H Urine Bilirubin 1 H Urine Urobilinogen 8 H Ur Leukocyte Esterase 25 H Urine RBC 0-5 SEEN Urine WBC 0-5 SEEN Ur Squamous Epith Cells 0-5 SEEN Urine Bacteria 1+ Urine Mucus 0 SEEN MRSA (PCR) 01/18/21 01/18/21 01/18/21 14:00 15:45 19:52 WBC RBC Hgb Hct MCV MCH MCHC RDW Std Deviation RDW Coeff of Etelvina Plt Count MPV Immature Gran % (Auto) Neut % (Auto) Lymph % (Auto) [place] % (Auto) Eos % (Auto) Baso % (Auto) Absolute Neuts (auto) Absolute Lymphs (auto) Nucleated RBC % Differential Comment Diff Path Review PT INR APTT Sodium Potassium Chloride Carbon Dioxide Anion Gap BUN Creatinine Estim Creat Clear Calc Est GFR (MDRD) Af Amer Est GFR (MDRD) Non-Af BUN/Creatinine Ratio Glucose Lactic Acid 6.6 H* Calcium Total Bilirubin GGT AST ALT Alkaline Phosphatase Troponin I High Sens 31.9 B-Natriuretic Peptide Total Protein Albumin Globulin Albumin/Globulin Ratio Lipase Urine Color Urine Clarity Urine pH Ur Specific [place] Urine Protein Urine Glucose (UA) Urine Ketones Urine Occult Blood Urine Nitrite Urine Bilirubin Urine Urobilinogen Ur Leukocyte Esterase Urine RBC Urine WBC Ur Squamous Epith Cells Urine Bacteria Urine Mucus MRSA (PCR) Negative 01/18/21 01/19/21 01/19/21 21:32 01:25 03:46 WBC 12.2 H RBC 5.54 Hgb 16.0 Hct 49.2 MCV 88.8 D MCH 28.9 MCHC 32.5 D RDW Std Deviation 50.4 H RDW Coeff of Etelvina 16.1 H Plt Count 100 L MPV 10.9 Immature Gran % (Auto) 0.500 Neut % (Auto) 91.6 H Lymph % (Auto) 3.4 L [place] % (Auto) 4.4 Eos % (Auto) 0.0 Baso % (Auto) 0.1 Absolute Neuts (auto) 11.2 H Absolute Lymphs (auto) 0.42 L Nucleated RBC % 0 Differential Comment Diff Path Review PT INR APTT Sodium Potassium Chloride Carbon Dioxide Anion Gap BUN Creatinine Estim Creat Clear Calc Est GFR (MDRD) Af Amer Est GFR (MDRD) Non-Af BUN/Creatinine Ratio Glucose Lactic Acid Calcium Total Bilirubin GGT AST ALT Alkaline Phosphatase Troponin I High Sens 34.2 40.3 B-Natriuretic Peptide Total Protein Albumin Globulin Albumin/Globulin Ratio Lipase Urine Color Urine Clarity Urine pH Ur Specific [place] Urine Protein Urine Glucose (UA) Urine Ketones Urine Occult Blood Urine Nitrite Urine Bilirubin Urine Urobilinogen Ur Leukocyte Esterase Urine RBC Urine WBC Ur Squamous Epith Cells Urine Bacteria Urine Mucus MRSA (PCR) 01/19/21 03:46 WBC RBC Hgb Hct MCV MCH MCHC RDW Std Deviation RDW Coeff of Etelvina Plt Count MPV Immature Gran % (Auto) Neut % (Auto) Lymph % (Auto) [place] % (Auto) Eos % (Auto) Baso % (Auto) Absolute Neuts (auto) Absolute Lymphs (auto) Nucleated RBC % Differential Comment Diff Path Review PT INR APTT Sodium 136 Potassium 4.8 Chloride 92 L Carbon Dioxide 37.0 H Anion Gap 7 BUN 49 H Creatinine 1.69 H Estim Creat Clear Calc 46.72 Est GFR (MDRD) Af Amer 55 L Est GFR (MDRD) Non-Af 45 L BUN/Creatinine Ratio 29.0 H Glucose 154 H Lactic Acid Calcium 8.2 L Total Bilirubin GGT AST ALT Alkaline Phosphatase Troponin I High Sens B-Natriuretic Peptide Total Protein Albumin Globulin Albumin/Globulin Ratio Lipase Urine Color Urine Clarity Urine pH Ur Specific [place] Urine Protein Urine Glucose (UA) Urine Ketones Urine Occult Blood Urine Nitrite Urine Bilirubin Urine Urobilinogen Ur Leukocyte Esterase Urine RBC Urine WBC Ur Squamous Epith Cells Urine Bacteria Urine Mucus MRSA (PCR) Micro: Microbiology 01/18/21 11:22 Sputum, Tracheal Aspirate Gram Stain - Final 01/18/21 12:30 Interface Orders SARS-CoV-2 Antigen (Rapid) - Final 01/18/21 Unknown Urine Catheter - Reyez Legionella Antigen - Final 01/18/21 Unknown Urine Catheter - Reyez Streptococcus pneumoniae Antigen (M - Final ABG Data ABG results: ABG 01/18/21 01/18/21 01/18/21 09:44 11:43 15:41 Specimen Type ART ART ART Sample Site L Radial R Radial R Radial pH 7.18 L* 7.21 L 7.42 Bicarbonate Actual 27.0 H 29.8 H 29.1 H Total CO2 29 32 31 Base Excess -1 2 5 H O2 Saturation 98 88 L 96 O2 % 100 50 60 ABG pCO2 72.6 H* 75.3 H* 44.7 ABG pO2 139 H 68 L 79 [place] Test Positive Positive Respiration Rate 12 14 O2 Delivery Device Adult Vent Adult Vent Vent Mode BiLevel AC AC Tidal Volume 500 500 POC PEEP 10 5 5 POC Pressure Suppt 28 Crit Call To/Read Back Yes Yes Blood Gas Notified Whom brown Radiography Diagnostic Testing: Radiology Impression Chest X-Ray 01/18/21 09:55 IMPRESSION: The tip of the endotracheal tube is at 3.5 sinus proximal to the ace. An orogastric tube is seen with the tip below the left hemidiaphragm. Increased interstitial markings more prominent in the lower lobes suggestive of a CHF with possible bibasilar atelectasis and/or early infiltrates. Electronically Signed: Joon Berkowitz MD at 10:16 EDT , Service support , KUB X-Ray 01/18/21 09:55 IMPRESSION: The tip of the orogastric tube is in the body of the stomach. Electronically Signed: Joon Berkowitz MD at 10:25 EDT , Service support , Rhythm Strip Rhythm Strip: Sinus Rhythm Rate: 90 Ectopy: None Physical Exam Const no apparent distress General Appearance: intubated and patient mechanically ventilated Nutritional Appearance: morbidly obese HEENT normocephalic and head/scalp atraumatic Mouth: endotracheal tube in place and OG tube in place Eyes PERRL and conjunctivae normal Neck supple General: trachea midline Resp Auscultation: wheezes and diminished lung sounds; Negative for rales or rhonchi Cardio regular rate and regular rhythm GI normal to inspection, nondistended, normoactive bowel sounds Extremity General Extremity: edema bilateral lower extremity Skin no rashes or lesions noted Neuro Sensorium / Orientation: sedated on vent Charges/Coding Procedures Hospitalists Procedures: 96706 Critial Care 1st Hr
[2021-01-19] MEDS: Chlorhexidine 15 ML PO ×2 (08:31→21:00)
[2021-01-19 08:39] LABS: AST(SGOT) 3809 U/L (15-37); Alanine Aminotransfer ALT/SGPT 2258 U/L (16-61); Albumin, Serum 2.6 g/dL (3.2-5.0); Alkaline Phosphatase 142 U/L (45-117); Bilirubin, Direct 2.32 mg/dL (0.00-0.30); Globulin 2.7 g/dL (2.2-4.2); Protein, Total 5.3 g/dL (6.4-8.2)
--- NOTE | 2021-01-19 09:02 | PN.HOSP_ITS ---
Subjective Subjective Intubated and sedated, failed spontaneous breathing trial this morning. Objective Data Objective Data Vital Signs: Vital Signs Temp Pulse Resp BP Pulse Ox 98.7 F 93 14 136/77 H 92 01/19/21 07:00 01/19/21 07:27 01/19/21 07:27 01/19/21 07:00 01/19/21 08:00 Oxygen Flow Rate (L/min) 16 Oxygen Delivery Method Mechanical Ventilator Weight: 276 lb 0.3 oz Body Mass Index (BMI) 43.7 Intake & Output: Intake and Output for Last 24 Hours 01/18/21 01/19/21 01/20/21 03:59 03:59 03:59 Intake Total 1455.52 / 1483.20 38.98 / 38.98 Output Total 940 / 1000 260 / 260 Balance 515.52 / 483.20 -221.02 / -221.02 Lab / Micro Data Result Diagrams: 01/19/21 03:46 01/19/21 03:46 Labs: Laboratory Results - last 24 hr 01/18/21 01/18/21 01/18/21 09:10 09:10 09:10 WBC 12.1 H RBC 5.63 Hgb 16.3 Hct 57.8 H MCV 102.7 H MCH 29.0 MCHC 28.2 L RDW Std Deviation 64.5 H RDW Coeff of Etelvina 17.6 H Plt Count 135 L MPV 11.2 Immature Gran % (Auto) 0.700 Neut % (Auto) 82.0 H Lymph % (Auto) 3.4 L [place] % (Auto) 13.7 H Eos % (Auto) 0.0 Baso % (Auto) 0.2 Absolute Neuts (auto) 9.9 H Absolute Lymphs (auto) 0.41 L Nucleated RBC % 0.2 Differential Comment SCANNED Diff Path Review May foll PT INR APTT Sodium 136 Potassium 5.1 Chloride 90 L Carbon Dioxide 31.0 Anion Gap 15 BUN 40 H Creatinine 2.31 H Estim Creat Clear Calc 65.88 Est GFR (MDRD) Af Amer 38 L Est GFR (MDRD) Non-Af 31 L BUN/Creatinine Ratio 17.3 Glucose 123 H Lactic Acid 10.0 H* Calcium 9.0 Total Bilirubin 5.10 H Direct Bilirubin GGT AST 2193 H ALT 1156 H Alkaline Phosphatase 167 H Troponin I High Sens B-Natriuretic Peptide Total Protein 7.3 Albumin 3.6 Globulin 3.7 Albumin/Globulin Ratio 1.0 Lipase Urine Color Urine Clarity Urine pH Ur Specific [place] Urine Protein Urine Glucose (UA) Urine Ketones Urine Occult Blood Urine Nitrite Urine Bilirubin Urine Urobilinogen Ur Leukocyte Esterase Urine RBC Urine WBC Ur Squamous Epith Cells Urine Bacteria Urine Mucus MRSA (PCR) 01/18/21 01/18/21 01/18/21 09:10 09:32 10:40 WBC RBC Hgb Hct MCV MCH MCHC RDW Std Deviation RDW Coeff of Etelvina Plt Count MPV Immature Gran % (Auto) Neut % (Auto) Lymph % (Auto) [place] % (Auto) Eos % (Auto) Baso % (Auto) Absolute Neuts (auto) Absolute Lymphs (auto) Nucleated RBC % Differential Comment Diff Path Review PT Cancelled 28.0 H INR Cancelled 2.7 APTT Cancelled 27.4 Sodium Potassium Chloride Carbon Dioxide Anion Gap BUN Creatinine Estim Creat Clear Calc Est GFR (MDRD) Af Amer Est GFR (MDRD) Non-Af BUN/Creatinine Ratio Glucose Lactic Acid Calcium Total Bilirubin Direct Bilirubin GGT AST ALT Alkaline Phosphatase Troponin I High Sens B-Natriuretic Peptide 1019.4 H Total Protein Albumin Globulin Albumin/Globulin Ratio Lipase Urine Color Urine Clarity Urine pH Ur Specific [place] Urine Protein Urine Glucose (UA) Urine Ketones Urine Occult Blood Urine Nitrite Urine Bilirubin Urine Urobilinogen Ur Leukocyte Esterase Urine RBC Urine WBC Ur Squamous Epith Cells Urine Bacteria Urine Mucus MRSA (PCR) 01/18/21 01/18/21 01/18/21 11:07 14:00 14:00 WBC RBC Hgb Hct MCV MCH MCHC RDW Std Deviation RDW Coeff of Etelvina Plt Count MPV Immature Gran % (Auto) Neut % (Auto) Lymph % (Auto) [place] % (Auto) Eos % (Auto) Baso % (Auto) Absolute Neuts (auto) Absolute Lymphs (auto) Nucleated RBC % Differential Comment Diff Path Review PT INR APTT Sodium Potassium Chloride Carbon Dioxide Anion Gap BUN Creatinine Estim Creat Clear Calc Est GFR (MDRD) Af Amer Est GFR (MDRD) Non-Af BUN/Creatinine Ratio Glucose Lactic Acid Calcium Total Bilirubin Direct Bilirubin GGT 75 AST ALT Alkaline Phosphatase Troponin I High Sens 30.6 B-Natriuretic Peptide Total Protein Albumin Globulin Albumin/Globulin Ratio Lipase 60 L Urine Color Yellow Urine Clarity Clear Urine pH 5.0 Ur Specific [place] 1.030 Urine Protein 100 H Urine Glucose (UA) 50 H Urine Ketones 5 H Urine Occult Blood 25 H Urine Nitrite Positive H Urine Bilirubin 1 H Urine Urobilinogen 8 H Ur Leukocyte Esterase 25 H Urine RBC 0-5 SEEN Urine WBC 0-5 SEEN Ur Squamous Epith Cells 0-5 SEEN Urine Bacteria 1+ Urine Mucus 0 SEEN MRSA (PCR) 01/18/21 01/18/21 01/18/21 14:00 15:45 19:52 WBC RBC Hgb Hct MCV MCH MCHC RDW Std Deviation RDW Coeff of Etelvina Plt Count MPV Immature Gran % (Auto) Neut % (Auto) Lymph % (Auto) [place] % (Auto) Eos % (Auto) Baso % (Auto) Absolute Neuts (auto) Absolute Lymphs (auto) Nucleated RBC % Differential Comment Diff Path Review PT INR APTT Sodium Potassium Chloride Carbon Dioxide Anion Gap BUN Creatinine Estim Creat Clear Calc Est GFR (MDRD) Af Amer Est GFR (MDRD) Non-Af BUN/Creatinine Ratio Glucose Lactic Acid 6.6 H* Calcium Total Bilirubin Direct Bilirubin GGT AST ALT Alkaline Phosphatase Troponin I High Sens 31.9 B-Natriuretic Peptide Total Protein Albumin Globulin Albumin/Globulin Ratio Lipase Urine Color Urine Clarity Urine pH Ur Specific [place] Urine Protein Urine Glucose (UA) Urine Ketones Urine Occult Blood Urine Nitrite Urine Bilirubin Urine Urobilinogen Ur Leukocyte Esterase Urine RBC Urine WBC Ur Squamous Epith Cells Urine Bacteria Urine Mucus MRSA (PCR) Negative 01/18/21 01/19/21 01/19/21 21:32 01:25 03:46 WBC 12.2 H RBC 5.54 Hgb 16.0 Hct 49.2 MCV 88.8 D MCH 28.9 MCHC 32.5 D RDW Std Deviation 50.4 H RDW Coeff of Etelvina 16.1 H Plt Count 100 L MPV 10.9 Immature Gran % (Auto) 0.500 Neut % (Auto) 91.6 H Lymph % (Auto) 3.4 L [place] % (Auto) 4.4 Eos % (Auto) 0.0 Baso % (Auto) 0.1 Absolute Neuts (auto) 11.2 H Absolute Lymphs (auto) 0.42 L Nucleated RBC % 0 Differential Comment Diff Path Review PT INR APTT Sodium Potassium Chloride Carbon Dioxide Anion Gap BUN Creatinine Estim Creat Clear Calc Est GFR (MDRD) Af Amer Est GFR (MDRD) Non-Af BUN/Creatinine Ratio Glucose Lactic Acid Calcium Total Bilirubin Direct Bilirubin GGT AST ALT Alkaline Phosphatase Troponin I High Sens 34.2 40.3 B-Natriuretic Peptide Total Protein Albumin Globulin Albumin/Globulin Ratio Lipase Urine Color Urine Clarity Urine pH Ur Specific [place] Urine Protein Urine Glucose (UA) Urine Ketones Urine Occult Blood Urine Nitrite Urine Bilirubin Urine Urobilinogen Ur Leukocyte Esterase Urine RBC Urine WBC Ur Squamous Epith Cells Urine Bacteria Urine Mucus MRSA (PCR) 01/19/21 01/19/21 03:46 03:46 WBC RBC Hgb Hct MCV MCH MCHC RDW Std Deviation RDW Coeff of Etelvina Plt Count MPV Immature Gran % (Auto) Neut % (Auto) Lymph % (Auto) [place] % (Auto) Eos % (Auto) Baso % (Auto) Absolute Neuts (auto) Absolute Lymphs (auto) Nucleated RBC % Differential Comment Diff Path Review PT INR APTT Sodium 136 Potassium 4.8 Chloride 92 L Carbon Dioxide 37.0 H Anion Gap 7 BUN 49 H Creatinine 1.69 H Estim Creat Clear Calc 46.72 Est GFR (MDRD) Af Amer 55 L Est GFR (MDRD) Non-Af 45 L BUN/Creatinine Ratio 29.0 H Glucose 154 H Lactic Acid Calcium 8.2 L Total Bilirubin 3.70 H Direct Bilirubin 2.32 H GGT AST 3809 H ALT 2258 H Alkaline Phosphatase 142 H Troponin I High Sens B-Natriuretic Peptide Total Protein 5.3 L Albumin 2.6 L Globulin 2.7 Albumin/Globulin Ratio Lipase Urine Color Urine Clarity Urine pH Ur Specific [place] Urine Protein Urine Glucose (UA) Urine Ketones Urine Occult Blood Urine Nitrite Urine Bilirubin Urine Urobilinogen Ur Leukocyte Esterase Urine RBC Urine WBC Ur Squamous Epith Cells Urine Bacteria Urine Mucus MRSA (PCR) Micro: Microbiology 01/18/21 11:22 Sputum, Tracheal Aspirate Gram Stain - Final 01/18/21 12:30 Interface Orders SARS-CoV-2 Antigen (Rapid) - Final 01/18/21 Unknown Urine Catheter - Reyez Legionella Antigen - Final 01/18/21 Unknown Urine Catheter - Reyez Streptococcus pneumoniae Antigen (M - Final ABG Data ABG results: ABG 01/18/21 01/18/21 01/18/21 09:44 11:43 15:41 Specimen Type ART ART ART Sample Site L Radial R Radial R Radial pH 7.18 L* 7.21 L 7.42 Bicarbonate Actual 27.0 H 29.8 H 29.1 H Total CO2 29 32 31 Base Excess -1 2 5 H O2 Saturation 98 88 L 96 O2 % 100 50 60 ABG pCO2 72.6 H* 75.3 H* 44.7 ABG pO2 139 H 68 L 79 [place] Test Positive Positive Respiration Rate 12 14 O2 Delivery Device Adult Vent Adult Vent Vent Mode BiLevel AC AC Tidal Volume 500 500 POC PEEP 10 5 5 POC Pressure Suppt 28 Crit Call To/Read Back Yes Yes Blood Gas Notified Whom brown Radiography Diagnostic Testing: Radiology Impression Chest X-Ray 01/18/21 09:55 IMPRESSION: The tip of the endotracheal tube is at 3.5 sinus proximal to the ace. An orogastric tube is seen with the tip below the left hemidiaphragm. Increased interstitial markings more prominent in the lower lobes suggestive of a CHF with possible bibasilar atelectasis and/or early infiltrates. Electronically Signed: Joon Berkowitz MD at 10:16 EDT , Service support , KUB X-Ray 01/18/21 09:55 IMPRESSION: The tip of the orogastric tube is in the body of the stomach. Electronically Signed: Joon Berkowitz MD at 10:25 EDT , Service support , Rhythm Strip Rhythm Strip: Sinus Rhythm Rate: 90 Ectopy: None Physical Exam Const Constitutional Narrative: intubated, sedated, RASS score is -4 General Appearance: intubated and patient mechanically ventilated HEENT moist oral mucous membranes Head and Scalp: normocephalic Eyes PERRL and conjunctivae normal Neck supple and no JVD Resp normal respiratory effort, no retractions, no use of accessory muscles and clear to auscultation bilaterally Resp Narrative: bilateral wheezing in all lung jett. intubated, sedated Auscultation: Negative for crackles, rales, rhonchi or wheezes Cardio regular rate, regular rhythm, S1 normal heart sound, S2 normal heart sound and no murmurs GI soft to palpation and non-distended; Negative for hepatosplenomegaly Extremity no clubbing, cyanosis or edema Skin no rashes or lesions noted Neuro Neuro Narrative: intubated, sedated. RASS score is -4. Sensorium / Orientation: sedated on vent RASS: -4 Psych Appearance: intubated Assessment & Plan Assessment/Plan (1) Respiratory failure: (2) Congestive heart failure: (3) Acidosis, lactic: (4) Acute kidney injury: PLAN: #Acute hypoxic and hypercapnic respiratory failure due to COPD exacerbation * Admit to ICU. Patient emergently intubated in the ED. * Vent settings as per critical care. * Titrate oxygen to maintain saturation above 90% * IV Solu-Medrol 40 mg every 8 * Patient meets criteria for sepsis but does appear like all this is due to his hypoxia as patient was literally blue on admission. Lactic acid was 10 and this is also likely due to patient being blue. * Will however cover patient with empiric antibiotics and get blood cultures and sputum cultures. * consult critical care * order 2D echo; cycle troponins * diurese with IV lasix due to concerns about heart failure exacerbation * sedated with propofol and fentanul * 01/19/2021: Failed spontaneous breathing trial this morning, will continue with intubation and sedation, wean as able #Acute COPD exacerbation: as above #Acute heart failure of unknown EF * kidney function is impaired, so will hold off on diuretics for now. * order 2D echo * monitor intake and output. Fluid restriction to 1500cc daily. #Septic shock * Patient was tachycardic and tachypneic and also has elevated lactic acid. He therefore meets the criteria for septic shock per Lactic acid criteria * will start on broad spectrum antibiotics for now. * hold off on IVF due to concerns about heart failure * get blood cultures * 01/19/2021: Blood cultures are still pending, will continue with Zosyn * #ERYN * Creatinine is 2.31; no baseline in the system * cant hydrate with IVF as patient may also be fluid overloaded, annd so is being diuresed * will trend Cr * 01/19/2021: Creatinine down to 1.69. #Elevated BP * Blood pressure was 176/109 at time of arrival. Patient does not appear to be a known hypertensive. This may be due to his respiratory failure as well and increased work of breathing * IV hydralazine as needed. If blood pressure remains elevated, will consider starting blood pressure medications. * 01/19/2021: Blood pressure is stable DVT: [email or web address] Charges/Coding Visit Charges Inpatient E&M: 87899 Subs Hosp L2
[2021-01-19] MEDS: Enoxaparin 40 MG/0.4 ML Syringe SC (10:11)
[2021-01-19] MEDS: Vital High Protein 1,000 ML 25 ML GT (11:04)
--- NOTE | 2021-01-19 11:30 | CASEMGMT ---
Per Hafsa YUN, pt's , Maxime, called in and states to call her on pt's cell phone to reach her. This RN CM attempted to reach her without success and no voicemail is set up. Will attempt again later. Tory YUN CM
--- NOTE | 2021-01-19 13:04 | CASEMGMT ---
[facility] assessment: Phone call with patient's as pt is intubated for initial transition planning/care coordination assessment. RN EVELYN introduced self and role at [facility], voices understanding and consents to assessment. verifies address and her cell phone is updated. Care providers, pharmacy, and demographics verified/updated. Presentation: Pt arrived gasping for air, purple with foam in mouth Admitting dx: Acute hypoxic resp failure, COPD PCP: Tatyana Specialists: None Preferred [facility]acy[facility] Insurance: Maln-wzp-Nfel SW aware Prescription Benefit: Self pay Living Will/HPOA: Pt does not have LW/HPOA and unable to complete at this time. LNOK: Maxime Murray, Living Arrangements: Pt lives with on main level of 2 story home and states no concerns at home. Pt is normally independent with ADL's but states has been assisting. Transportation: Pt drives self and states no transportation concerns. 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 Per , no further DME needed. states pt has had HHC in the past but has not been to SNF. CM to follow clinical course for d/c planning. Pt is currently unemployed. Pt smokes 1/2 pack/day and does not drink ETOH. states no further concerns/needs. CM to follow for further discharge planning/needs. SW to provide resources for self-pay. Advised to ask for CM if any further questions/concerns/needs arise, voices understanding. Pt Goal: Home Plan: [place] [address] [place]
--- NOTE | 2021-01-19 14:40 | NURSING ---
PICC electrical linesworker here and working on placement of line.
[2021-01-19] MEDS: Lansoprazole 15 MG Capsule.DR NG (15:25)
[2021-01-19] MEDS: Propofol 10MG/Ml 1,000 MG/100 ML Bottle 11.3 MG CONT INF (15:39)
--- NOTE | 2021-01-19 18:23 | NURSING ---
Pt. intubated and sedated. All teaching deferred until pt is more alert and awake and acute illness is resolved.
[2021-01-19] MEDS: Vital High Protein 1,000 ML 45 ML GT (20:00)
--- NOTE | 2021-01-19 21:05 | CM.ED ---
NINO Referral: Referral Source: Arson Investigator Referral Reason: No insurance Patient remains intubated. RN provided patient with Self Pay packet. SW remains available if needs arise. Italia DANIELSON
[2021-01-19] MEDS: Propofol 10MG/Ml 1,000 MG/100 ML Bottle 18.8 MG CONT INF (21:51)
[2021-01-20] VITALS (36 sets, daily range): BP systolic 103–128; BP diastolic 57–79; PULSE 83–98; RESP 14; TEMP 36.8–37.2; O2SAT 89–95
[2021-01-20] MEDS: Ipratropium/Albuterol Sulfate 3 ML AMPUL.NEB INHALATION ×6 (02:16→22:40)
[2021-01-20] MEDS: Propofol 10MG/Ml 1,000 MG/100 ML Bottle 22.5 MG CONT INF (02:35)
[2021-01-20 04:22] LABS: Absolute Lymphocyte Count 0.18 X10^3/uL (0.83-4.51); Absolute Neutrophil Count 9.3 X10^3/uL (2.0-7.7); Basophil# 0.01 X10^3/uL; Basophil% 0.1 % (0-1); Hematocrit 46.8 % (40-54); Hemoglobin 15.4 g/dL (13.0-16.5); Lymphocyte # 0.18 X10^3/ul (0.83-4.51); Lymphocyte % 1.8 % (19-41); Mean Corp Hgb Conc 32.9 g/dL (32-36); Mean Corpuscular Hgb 29.1 pg (27.0-32.0); Mean Corpuscular Volume 88.3 fL (80-94); Mean Platelet Vol. 10.7 fl (6.2-12.0); Monocyte# 0.49 X10^3/uL; Monocyte% 4.9 % (0-10); NRBC Flagged by Analyzer 0 % (0-5); Neutrophil # 9.33 X10^3/uL (2.7-7.7); Neutrophil % 92.8 % (47-70); POSITIVE COUNT YES; POSITIVE DIFFERENTIAL YES; Platelet Count 90 K/mm3 (150-450); RBC Distribution Width CV 15.9 % (11.6-14.6); RBC Distribution Width SD 48.6 fl (35.1-43.9); White Blood Count 10.1 K/mm3 (4.4-11.0)
[2021-01-20 04:23] LABS: Differential Indicated SCAN CRITERIA MET
[2021-01-20] MEDS: TITRATION PARAMETER CHANGE 1 EACH IV (04:36)
[2021-01-20 04:46] LABS: AST(SGOT) 2000 U/L (15-37); Alanine Aminotransfer ALT/SGPT 1868 U/L (16-61); Albumin, Serum 2.4 g/dL (3.2-5.0); Alkaline Phosphatase 137 U/L (45-117); Anion Gap 7 (5-15); BUN 53 mg/dL (7-18); BUN/Creat Ratio 33.5 RATIO (10-20); Calcium,Total 7.9 mg/dL (8.5-10.1); Chloride 94 mmol/L (98-107); Creatinine, Serum 1.58 mg/dL (0.70-1.30); EST Glomerular Filtration Rate 49 mL/min (>60); Est Glom Filt Rate - Afr Amer 59 mL/min (>60); Estimated Creatinine Clearance 49.97 ml/min; Globulin 2.5 g/dL (2.2-4.2); Glucose 198 mg/dL (74-106); Potassium 4.6 mmol/L (3.5-5.1); Protein, Total 4.9 g/dL (6.4-8.2); Sodium Level 138 mmol/L (136-145)
--- NOTE | 2021-01-20 05:51 | CPS ---
Patient tried x2 on SBT trial this morning. No spontaneous effort was shown during both attempts. Apnea ventilation took over for patient during both attempts. RN aware.
--- NOTE | 2021-01-20 06:20 | PN.CC_ITS ---
Assessment & Plan Assessment/Plan (1) Respiratory failure: PLAN: RECOMMENDATIONS: 1. Continue patient on assist control mode of mechanical ventilation. 2. Wean FiO2 and PEEP to maintain saturations at or above 90%. 3. Continue antimicrobials. 4. Continue scheduled bronchodilators and steroids. 5. Awaiting echocardiogram. 6. Continue tube feeds as tolerated. 7. Continue appropriate ICU prophylaxis. IMPRESSIONS: 1. Acute on chronic combined respiratory failure Concern for multifactorial etiology, with underlying pulmonary infectious process leading to COPD exacerbation along with possible decompensated heart failure contributing. The patient did require intubation in the emergency department after failing to respond to noninvasive positive pressure ventilatory support. Recommend continuing assist control mode mechanical ventilation. Wean FiO2 and PEEP to maintain saturations at or above 90%. Continue empiric antimi crobials, pending finalized infectious work-up. Echocardiogram is pending. Continue scheduled bronchodilator therapy and IV steroids. Consider gentle diuresis as tolerated by hemodynamics and renal function. 2. Chronic tobacco dependency/history of alcohol dependency Continues supportive measures as noted above. We will need to confirm with the patient's family his current use of tobacco and alcohol. In the interim, bronchodilators will be continued. 3. Acute versus chronic kidney disease Improving. Likely prerenal in etiology and related to acute presentation. Continue to monitor urine output for now. No current indication for renal replacement therapy. 4. Acute liver injury Unclear etiology. GGT and lipase were normal. Liver ultrasound revealed no overt findings concerning for cholecystitis. Liver function is slowly improving without intervention. Continue to monitor. TIME: 36 minutes of critical care time, independent of procedures, was spent addressing the patient's acute on chronic combined respiratory failure, chronic tobacco/alcohol dependency, acute versus chronic kidney disease, acute liver injury, review of all data and collaboration with the care team. ([id number]) Subjective Subjective The patient was seen and examined at the bedside this morning. Events from the last 24 hours have been reviewed. The patient is currently afebrile, hemodynamically stable and maintaining appropriate oxygen saturations on assist control mode of mechanical ventilation with an FiO2 requirement of 40%. The patient failed his spontaneous breathing trial this morning due to inadequate ti rose volumes and apneic periods. The patient has been tolerant of tube feeds. Creatinine and liver function are improving. Objective Data Objective Data The patient's most recent lab work, culture data and imaging studies have all been personally reviewed. Rapid coronavirus antigen testing was negative. Strep and urine Legionella antigens were negative. Urine Gram stain revealed a gram-negative kayce. Sputum culture was positive for possible Pseudomonas. Blood cultures are pending. Vital Signs: Vital Signs Temp Pulse Resp BP Pulse Ox 98.5 F 94 14 123/79 H 91 01/20/21 04:00 01/20/21 06:00 01/20/21 06:00 01/20/21 06:00 01/20/21 06:00 Oxygen Flow Rate (L/min) 16 Oxygen Delivery Method Mechanical Ventilator Weight: 275 lb 2.19 oz Body Mass Index (BMI) 43.7 Intake & Output: Intake and Output for Last 24 Hours 01/18/21 01/19/21 01/20/21 23:59 23:59 23:59 Intake Total 1117.51 / 1135.31 990.03 / 1177.41 669.34 / 669.34 Output Total 500 / 500 1535 / 1685 385 / 385 Balance 617.51 / 635.31 -544.97 / -507.59 284.34 / 284.34 Lab / Micro Data Attestation: I reviewed the patient's lab results. Result Diagrams: 01/20/21 04:10 01/20/21 04:10 Labs: Laboratory Results - last 24 hr 01/19/21 01/20/21 01/20/21 03:46 04:10 04:10 WBC 10.1 RBC 5.30 Hgb 15.4 Hct 46.8 MCV 88.3 MCH 29.1 MCHC 32.9 RDW Std Deviation 48.6 H RDW Coeff of Etelvina 15.9 H Plt Count 90 L MPV 10.7 Immature Gran % (Auto) 0.400 Neut % (Auto) 92.8 H Lymph % (Auto) 1.8 L [place] % (Auto) 4.9 Eos % (Auto) 0.0 Baso % (Auto) 0.1 Absolute Neuts (auto) 9.3 H Absolute Lymphs (auto) 0.18 L Nucleated RBC % 0 Sodium 138 Potassium 4.6 Chloride 94 L Carbon Dioxide 37.0 H Anion Gap 7 BUN 53 H Creatinine 1.58 H Estim Creat Clear Calc 49.97 Est GFR (MDRD) Af Amer 59 L Est GFR (MDRD) Non-Af 49 L BUN/Creatinine Ratio 33.5 H Glucose 198 H Calcium 7.9 L Total Bilirubin 3.70 H 3.10 H Direct Bilirubin 2.32 H AST 3809 H 2000 H ALT 2258 H 1868 H Alkaline Phosphatase 142 H 137 H Total Protein 5.3 L 4.9 L Albumin 2.6 L 2.4 L Globulin 2.7 2.5 Albumin/Globulin Ratio 1.0 Micro: Microbiology 01/18/21 11:22 Sputum, Tracheal Aspirate Gram Stain - Final 01/18/21 11:22 Sputum, Tracheal Aspirate Respiratory Culture - Preliminary GNR Poss Pseudomonas sp 01/18/21 11:07 Urine, Random Urine Culture - Final GNR lactose network contract manager 01/18/21 12:30 Interface Orders SARS-CoV-2 Antigen (Rapid) - Final 01/18/21 Unknown Urine Catheter - Reyez Legionella Antigen - Final 01/18/21 Unknown Urine Catheter - Reyez Streptococcus pneumoniae Antigen (M - Final Radiography Diagnostic Testing: Radiology Impression Liver Ultrasound 01/18/21 14:11 IMPRESSION: 1. No hepatic masses or biliary dilation. Patent portal vein. 2. Mild ascites. 3. Mild gallbladder wall thickening (only partially distended gallbladder) and gallbladder sludge. Negative sonographic ALVAREZ sign. Pericholecystic fluid could be related to ascites. Equivocal for cholecystitis. If there is high clinical suspicion for cholecystitis, recommend HIDA scan. Electronically Signed: Ruperto Jeter MD (Brooks) at 14:11 EDT , Service support , Rhythm Strip Rhythm Strip: Sinus Rhythm Rate: 90 Ectopy: None Physical Exam Const no apparent distress General Appearance: intubated and patient mechanically ventilated Nutritional Appearance: morbidly obese HEENT normocephalic and head/scalp atraumatic Mouth: endotracheal tube in place and OG tube in place Eyes PERRL and conjunctivae normal Neck supple General: trachea midline Resp Auscultation: wheezes and diminished lung sounds; Negative for rales or rhonchi Cardio regular rate and regular rhythm GI normal to inspection, nondistended, normoactive bowel sounds Extremity General Extremity: edema bilateral lower extremity Skin no rashes or lesions noted Neuro Sensorium / Orientation: sedated on vent Charges/Coding Procedures Hospitalists Procedures: [id number] Critial Care 1st Hr
--- NOTE | 2021-01-20 07:50 | CPS ---
Helped Therapy move pt to edge of bed and back. ETT placement checked, BBS auscultated & getting normal return TV after getting pt back in bed.
[2021-01-20] MEDS: Chlorhexidine 15 ML PO ×2 (08:16→21:02)
[2021-01-20] MEDS: Furosemide 40 MG/4 ML Vial IV (08:17)
[2021-01-20] MEDS: Lansoprazole 15 MG Capsule.DR NG (08:17)
[2021-01-20] MEDS: Enoxaparin 40 MG/0.4 ML Syringe SC (08:18)
[2021-01-20] MEDS: Propofol 10MG/Ml 1,000 MG/100 ML Bottle 15 MG CONT INF ×2 (10:18→16:43)
--- NOTE | 2021-01-20 10:39 | NURSING ---
Spoke with Sandra she stated. Fede has not drank in a year, but uses Meth daily.
--- NOTE | 2021-01-20 10:41 | PN.HOSP_ITS ---
Subjective Subjective See paper chart for billing of note Objective Data Objective Data Vital Signs: Vital Signs Temp Pulse Resp BP Pulse Ox 98.8 F 95 14 113/68 93 01/20/21 10:00 01/20/21 10:00 01/20/21 10:00 01/20/21 10:00 01/20/21 09:00 Oxygen Flow Rate (L/min) 50 Oxygen Delivery Method Mechanical Ventilator Weight: 275 lb 2.19 oz Body Mass Index (BMI) 43.7 Intake & Output: Intake and Output for Last 24 Hours 01/19/21 01/20/21 01/21/21 03:59 03:59 03:59 Intake Total 1455.52 / 1483.20 974.36 / 1216.36 441.68 / 441.68 Output Total 940 / 1000 1280 / 1430 710 / 710 Balance 515.52 / 483.20 -305.64 / -213.64 -268.32 / -268.32 Lab / Micro Data Result Diagrams: 01/21/21 04:07 01/21/21 04:07 Labs: Laboratory Results - last 24 hr 01/20/21 01/20/21 04:10 04:10 WBC 10.1 RBC 5.30 Hgb 15.4 Hct 46.8 MCV 88.3 MCH 29.1 MCHC 32.9 RDW Std Deviation 48.6 H RDW Coeff of Etelvina 15.9 H Plt Count 90 L MPV 10.7 Immature Gran % (Auto) 0.400 Neut % (Auto) 92.8 H Lymph % (Auto) 1.8 L [place] % (Auto) 4.9 Eos % (Auto) 0.0 Baso % (Auto) 0.1 Absolute Neuts (auto) 9.3 H Absolute Lymphs (auto) 0.18 L Nucleated RBC % 0 Sodium 138 Potassium 4.6 Chloride 94 L Carbon Dioxide 37.0 H Anion Gap 7 BUN 53 H Creatinine 1.58 H Estim Creat Clear Calc 49.97 Est GFR (MDRD) Af Amer 59 L Est GFR (MDRD) Non-Af 49 L BUN/Creatinine Ratio 33.5 H Glucose 198 H Calcium 7.9 L Total Bilirubin 3.10 H AST 2000 H ALT 1868 H Alkaline Phosphatase 137 H Total Protein 4.9 L Albumin 2.4 L Globulin 2.5 Albumin/Globulin Ratio 1.0 Micro: Microbiology 01/18/21 09:25 Blood Culture (Wb) - Anticubital Left Blood Culture - Preliminary No growth in 48 hours. 01/18/21 09:30 Blood Culture (Wb) - Anticubital Right Blood Culture - Preliminary No growth in 48 hours. 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 lactose marketing automation analyst 01/18/21 12:30 Interface Orders SARS-CoV-2 Antigen (Rapid) - Final 01/18/21 Unknown Urine Catheter - Reyez Legionella Antigen - Final 01/18/21 Unknown Urine Catheter - Reyez Streptococcus pneumoniae Antigen (M - Final Radiography Diagnostic Testing: Radiology Impression Liver Ultrasound 01/18/21 14:11 IMPRESSION: 1. No hepatic masses or biliary dilation. Patent portal vein. 2. Mild ascites. 3. Mild gallbladder wall thickening (only partially distended gallbladder) and gallbladder sludge. Negative sonographic ALVAREZ sign. Pericholecystic fluid could be related to ascites. Equivocal for cholecystitis. If there is high clinical suspicion for cholecystitis, recommend HIDA scan. Electronically Signed: Ruperto Jeter MD ([place]) at 14:11 EDT , Service support , Rhythm Strip Rhythm Strip: Sinus Rhythm Rate: 90 Ectopy: None
[2021-01-20] MEDS: Vital High Protein 1,000 ML 65 ML GT (11:34)
[2021-01-20 12:21] LABS: Bedside Glucose 214 mg/dL (70-110)
[2021-01-20] MEDS: 0.9% Saline Lock 10 ML Syringe IV ×2 (13:59→17:13)
[2021-01-20] MEDS: Propofol 10MG/Ml 1,000 MG/100 ML Bottle 11.2 MG CONT INF (23:54)
[2021-01-21] VITALS (41 sets, daily range): BP systolic 104–153; BP diastolic 61–96; PULSE 61–104; RESP 12–17; TEMP 36.3–36.9; O2SAT 45–958
[2021-01-21] MEDS: Vital High Protein 1,000 ML 65 ML GT ×2 (01:47→20:19)
[2021-01-21] MEDS: CHLORHEXIDINE GLUC 2% CLOTH 1 EACH TOWELETTE TOPICAL (03:07)
[2021-01-21] MEDS: Ipratropium/Albuterol Sulfate 3 ML AMPUL.NEB INHALATION ×5 (03:52→19:02)
[2021-01-21 04:19] LABS: Absolute Lymphocyte Count 0.14 X10^3/uL (0.83-4.51); Absolute Neutrophil Count 7.8 X10^3/uL (2.0-7.7); Differential Indicated SCAN CRITERIA MET; Hemoglobin 15.1 g/dL (13.0-16.5); Lymphocyte # 0.14 X10^3/ul (0.83-4.51); Lymphocyte % 1.7 % (19-41); Mean Corp Hgb Conc 32.8 g/dL (32-36); Mean Corpuscular Hgb 28.9 pg (27.0-32.0); Monocyte# 0.45 X10^3/uL; Monocyte% 5.4 % (0-10); NRBC Flagged by Analyzer 0 % (0-5); Neutrophil # 7.78 X10^3/uL (2.7-7.7); Neutrophil % 92.4 % (47-70); POSITIVE COUNT YES; POSITIVE DIFFERENTIAL YES; Platelet Count 66 K/mm3 (150-450); RBC Distribution Width CV 16.1 % (11.6-14.6); RBC Distribution Width SD 49.6 fl (35.1-43.9); Red Blood Count 5.23 M/mm3 (4.6-6.2); White Blood Count 8.4 K/mm3 (4.4-11.0)
[2021-01-21 04:28] LABS: Anion Gap 6 (5-15); BUN 58 mg/dL (7-18); BUN/Creat Ratio 44.3 RATIO (10-20); Calcium,Total 7.8 mg/dL (8.5-10.1); Chloride 94 mmol/L (98-107); Creatinine, Serum 1.31 mg/dL (0.70-1.30); EST Glomerular Filtration Rate 61 mL/min (>60); Est Glom Filt Rate - Afr Amer 73 mL/min (>60); Estimated Creatinine Clearance 60.27 ml/min; Glucose 222 mg/dL (74-106); Sodium Level 139 mmol/L (136-145)
--- NOTE | 2021-01-21 06:39 | PN.CC_ITS ---
Assessment & Plan Assessment/Plan (1) Respiratory failure: PLAN: RECOMMENDATIONS: 1. Continue patient on assist control mode of mechanical ventilation. 2. Wean FiO2 and PEEP to maintain saturations at or above 90%. 3. Continue antimicrobials. Consider narrowing antibiotic spectrum 4. Continue scheduled bronchodilators and steroids. 5. Awaiting echocardiogram. 6. Continue tube feeds as tolerated. Increase bowel regimen 7. Continue appropriate ICU prophylaxis. 8. Increase diuretic therapy IMPRESSIONS: 1. Acute on chronic combined respiratory failure secondary to pseudomonal pneumonia Concern for multifactorial etiology, with underlying pulmonary infectious process leading to COPD exacerbation along with possible decompensated heart failure contributing. The patient did require intubation in the emergency department after failing to respond to noninvasive positive pressure ventilatory support. Recommend continuing assist control mode mechanical ventilation. Wean FiO2 and PEEP to maintain saturations at or above 90%. Likely okay to narrow antibiotic spectrum from my perspective. Echocardiogram is pending. Continue scheduled bronchodilator therapy and IV steroids. Consider gentle diuresis as tolerated by hemodynamics and renal function. 2. Chronic tobacco dependency/history of alcohol dependency Continues supportive measures as noted above. We will need to confirm with the patient's family his current use of tobacco and alcohol. In the interim, bronchodilators will be continued. 3. Acute versus chronic kidney disease Improving. Likely prerenal in etiology and related to acute presentation. Continue to monitor urine output for now. No current indication for renal replacement therapy. 4. Acute liver injury Unclear etiology. GGT and lipase were normal. Liver ultrasound revealed no overt findings concerning for cholecystitis. Liver function is slowly improving without intervention. Continue to monitor. TIME: 34 minutes of critical care time, independent of procedures, was spent addressing the patient's acute on chronic combined respiratory failure, chronic tobacco/alcohol dependency, acute versus chronic kidney disease, acute liver injury, review of all data and collaboration with the care team. (5:20 AM to 6:20 AM) Subjective Subjective Patient did okay overnight. Patient's red man syndrome is slowly improving. Patient continues to have anasarca. Patient was placed on a spontaneous breathing trial this morning, but was unable to tolerate. Patient reportedly has been tolerating tube feeds. Objective Data Objective Data Vital Signs: Vital Signs Temp Pulse Resp BP Pulse Ox 36.4 C L 86 14 122/78 H 94 01/21/21 06:00 01/21/21 06:00 01/21/21 06:00 01/21/21 06:00 01/21/21 06:00 Oxygen Flow Rate (L/min) 55 Oxygen Delivery Method Mechanical Ventilator Weight: 124.7 kg Body Mass Index (BMI) 43.7 Intake & Output: Intake and Output for Last 24 Hours 01/19/21 01/20/21 01/21/21 23:59 23:59 23:59 Intake Total 990.03 / 1177.41 2327.90 / 2334.02 459.64 / 459.64 Output Total 1535 / 1685 2170 / 2295 375 / 375 Balance -544.97 / -507.59 157.90 / 39.02 84.64 / 84.64 Lab / Micro Data Result Diagrams: 01/21/21 04:07 01/21/21 04:07 Labs: Laboratory Results - last 24 hr 01/20/21 01/21/21 01/21/21 12:18 04:07 04:07 WBC 8.4 RBC 5.23 Hgb 15.1 Hct 46.0 MCV 88.0 MCH 28.9 MCHC 32.8 RDW Std Deviation 49.6 H RDW Coeff of Etelvina 16.1 H Plt Count 66 L MPV 11.0 Immature Gran % (Auto) 0.500 Neut % (Auto) 92.4 H Lymph % (Auto) 1.7 L [place] % (Auto) 5.4 Eos % (Auto) 0.0 Baso % (Auto) 0.0 Absolute Neuts (auto) 7.8 H Absolute Lymphs (auto) 0.14 L Nucleated RBC % 0 Sodium 139 Potassium 4.0 Chloride 94 L Carbon Dioxide 39.0 H Anion Gap 6 BUN 58 H Creatinine 1.31 H Estim Creat Clear Calc 60.27 Est GFR (MDRD) Af Amer 73 Est GFR (MDRD) Non-Af 61 BUN/Creatinine Ratio 44.3 H Glucose 222 H Calcium 7.8 L POC Glucose 214 H Micro: Microbiology 01/18/21 09:25 Blood Culture (Wb) - Anticubital Left Blood Culture - Preliminary No growth in 48 hours. 01/18/21 09:30 Blood Culture (Wb) - Anticubital Right Blood Culture - Preliminary No growth in 48 hours. 01/18/21 11:22 Sputum, Tracheal Aspirate Gram Stain - Final 01/18/21 11:22 Sputum, Tracheal Aspirate Respiratory Culture - Final Pseudomonas aeroginosa 07/02/21 11:07 Urine, Random Urine Culture - Final GNR lactose personal protection specialist 01/18/21 12:30 Interface Orders SARS-CoV-2 Antigen (Rapid) - Final 01/18/21 Unknown Urine Catheter - Reyez Legionella Antigen - Final 01/18/21 Unknown Urine Catheter - Reyez Streptococcus pneumoniae Antigen (M - Final Rhythm Strip Rhythm Strip: Sinus Rhythm Rate: 90 Ectopy: None Physical Exam Const no apparent distress Constitutional Narrative: Anasarca. Good vent synchrony General Appearance: intubated and patient mechanically ventilated Nutritional Appearance: morbidly obese HEENT normocephalic and head/scalp atraumatic Mouth: endotracheal tube in place and OG tube in place Eyes PERRL and conjunctivae normal Neck supple General: trachea midline Resp Auscultation: wheezes and diminished lung sounds; Negative for rales or rhonchi Cardio regular rate and regular rhythm GI normal to inspection, nondistended, normoactive bowel sounds Extremity General Extremity: edema bilateral lower extremity Skin no rashes or lesions noted Neuro Sensorium / Orientation: sedated on vent Psych Mood & Affect: flat affect Charges/Coding Procedures Hospitalists Procedures: 42693 Critial Care 1st Hr
--- NOTE | 2021-01-21 07:00 | ECHOCS_ITS ---
Reason For Study: CHF Procedure This was a 2D Doppler, Color Flow transthoracic echocardiogram. The study was technically difficult. Contrast injection was performed. Patient on a vent. Exam performed portable in ICU/CCU. Left Ventricle D shaped septum in systole and diastole. Based upon the 2D echocardiographic and contrast enhanced images obtained there appears to be left ventricular size with regional wall motion abnormalities with overall preserved LV systolic function. The estimated ejection fraction is 55 %. No evidence for diastolic dysfunction. Right Ventricle Based upon the 2D echocardiographic and contrast enhanced images obtained there appears to be grossly normal right ventricular size and systolic function. Atria The left atrium is mildly enlarged. The right atrium is not well visualized. No doppler evidence for ASD. Mitral Valve There is no mitral annular calcification. Normal mitral valve. Trivial mitral valve insufficiency. Tricuspid Valve Normal tricuspid valve. Trivial tricuspid valve insufficiency. Right ventricular systolic pressure estimated to be 51 mmHg. Aortic Valve Trisinus/trileaflet aortic valve. Mild focal aortic valve thickening. Pulmonic Valve The pulmonic valve is not well visualized. Great Vessels The aortic root is not well visualized. Pericardium/Pleural Trivial pericardial effusion. There are no echocardiographic indications of cardiac tamponade. Medication Diluted definity 3ml given slow IV push to enhance endocardial definition. MMode/2D Measurements & Calculations LVIDd: 4.0 cm IVSd: 1.2 cm LA dimension: 4.5 cm LVIDs: 2.9 cm LVPWd: 1.2 cm FS: 26.1 % LAV(MOD-sp4): 49.3 ml LA A4 area: 17.7 cm2 Time Measurements MV dec time: 0.24 sec Doppler Measurements & Calculations MV E max octavio: 79.0 cm/sec Lat Peak E' Octavio: 13.1 cm/sec Med Peak E' Octavio: 8.6 cm/sec MV A max octavio: 66.3 cm/sec E/E' lat: 6.0 E/E' med: 9.1 MV E/A: 1.2 MV V2 max: 81.5 cm/sec MV P1/2t max octavio: 82.8 cm/sec Ao V2 max: 112.7 cm/sec MV max P.7 mmHg MV P1/2t: 55.9 msec Ao max P.1 mmHg MV V2 mean: 51.3 cm/sec MV dec slope: 433.7 cm/sec2 MV mean P.2 mmHg MV V2 VTI: 18.0 cm MVA(P1/2t): 3.9 cm2 LV V1 max: 108.4 cm/sec PA V2 max: 122.3 cm/sec TR max octavio: 344.4 cm/sec LV V1 max P.7 mmHg TR max P.5 mmHg ECHO/Echo Complete W/ Contrast Interpretation Summary The study was technically difficult. Contrast injection was performed. Based upon the 2D echocardiographic and contrast enhanced images obtained there appears to be left ventricular size with regional wall motion abnormalities with overall preserved LV systolic function. The estimated ejection fraction is 55 %. D shaped septum in systole and diastole. The left atrium is mildly enlarged. Trivial mitral valve insufficiency. Trivial tricuspid valve insufficiency. Mild focal aortic valve thickening. Trivial pericardial effusion. There are no echocardiographic indications of cardiac tamponade. Right ventricular systolic pressure estimated to be 51 mmHg compatible with pul monary hypertension. No evidence for diastolic dysfunction. Ordering Physician: Porfirio Latham Referring Physician: Mariia Joe Performed By: Dante Sevilla RCS
[2021-01-21] MEDS: Chlorhexidine 15 ML PO ×2 (08:22→21:07)
[2021-01-21] MEDS: Furosemide 40 MG/4 ML Vial IV ×2 (08:23→17:53)
[2021-01-21] MEDS: Lansoprazole 15 MG Capsule.DR NG (08:24)
[2021-01-21] MEDS: Enoxaparin 40 MG/0.4 ML Syringe SC (08:24)
[2021-01-21] MEDS: Polyethylene Glycol 3350 17 GM PACKET GT (08:25)
[2021-01-21] MEDS: Senna/Docusate Sodium 1 Tablet 2 TABLET GT (08:25)
[2021-01-21] MEDS: Propofol 10MG/Ml 1,000 MG/100 ML Bottle 15 MG CONT INF (10:00)
--- NOTE | 2021-01-21 10:22 | PCM.PN.BLA ---
Progress Note No issues overnight, continues to be intubated sedation is minimal and he is alert and interactive. Assessment/Plan (1) Respiratory failure: (2) Congestive heart failure: (3) Acidosis, lactic: (4) Acute kidney injury: PLAN: #Acute hypoxic and hypercapnic respiratory failure due to COPD exacerbation Admit to ICU. Patient emergently intubated in the ED. Vent settings as per critical care. Titrate oxygen to maintain saturation above 90% IV Solu-Medrol 40 mg every 8 Patient meets criteria for sepsis but does appear like all this is due to his hypoxia as patient was literally blue on admission. Lactic acid was 10 and this is also likely due to patient being blue. Will however cover patient with empiric antibiotics and get blood cultures and sputum cultures. consult critical care order 2D echo; cycle troponins diurese with IV lasix due to concerns about heart failure exacerbation sedated with propofol and fentanul 01/19/2021: Failed spontaneous breathing trial this morning, will continue with intubation and sedation, wean as able 01/21/2021: Continue with weaning sedation more alert today's failed spontaneous breathing trial this morning. #Acute COPD exacerbation: as above #Acute heart failure of unknown EF kidney function is impaired, so will hold off on diuretics for now. order 2D echo monitor intake and output. Fluid restriction to 1500cc daily. #Septic shock Patient was tachycardic and tachypneic and also has elevated lactic acid. He therefore meets the criteria for septic shock per Lactic acid criteria will start on broad spectrum antibiotics for now. hold off on IVF due to concerns about heart failure get blood cultures 01/19/2021: Blood cultures are still pending, will continue with Zosyn #ERYN Creatinine is 2.31; no baseline in the system cant hydrate with IVF as patient may also be fluid overloaded, annmiriam so is being diuresed will trend Cr 01/19/2021: Creatinine down to 1.69. 01/21/2021: Creatinine down to 1.31, can give Lasix if necessary given his fluid status. #Elevated BP Blood pressure was 176/109 at time of arrival. Patient does not appear to be a known hypertensive. This may be due to his respiratory failure as well and increased work of breathing IV hydralazine as needed. If blood pressure remains elevated, will consider starting blood pressure medications. 01/19/2021: Blood pressure is stable DVT: lovenox Physical Exam Narrative Blood pressure 153/96, heart rate 104, respiratory rate 14, temperature 97.7, O2 sat is 92% Const alert General Appearance: intubated and patient mechanically ventilated HEENT normocephalic and moist oral mucous membranes Eyes PERRL, EOMs intact bilaterally and conjunctivae normal Neck supple and no JVD Resp normal respiratory effort Auscultation: wheezes expiratory wheezes and throughout and diminished lung sounds; Negative for crackles, rales or rhonchi Cardio regular rate, regular rhythm, S1 normal heart sound, S2 normal heart sound and no murmurs GI soft to palpation and non-distended; Negative for hepatosplenomegaly Extremity General Extremity: edema bilateral lower extremity Details: trace; Negative for clubbing or cyanosis Skin no rashes or lesions noted Neuro Sensorium / Orientation: sedated on vent RASS: -1 Psych Mood & Affect: flat affect Visit Charges Inpatient E&M: 34906 Subs Hosp L2
[2021-01-21] MEDS: Insulin Lispro 100 UNIT/ML INSULN.PEN SC ×3 (11:39→23:14)
[2021-01-21 11:46] LABS: Bedside Glucose 191 mg/dL (70-110)
[2021-01-21 17:56] LABS: Bedside Glucose 210 mg/dL (70-110)
[2021-01-21] MEDS: Propofol 10MG/Ml 1,000 MG/100 ML Bottle 7.5 MG CONT INF (18:33)
[2021-01-21 23:36] LABS: Bedside Glucose 174 mg/dL (70-110)
[2021-01-22] VITALS (37 sets, daily range): BP systolic 120–157; BP diastolic 77–106; PULSE 73–103; RESP 9–22; TEMP 35.7–36.4; O2SAT 76–96
--- NOTE | 2021-01-22 00:30 | NURSING ---
Patient refuses turns, shakes head no and grabs bed rails when turning attempts are made. Patient educated on risk for skin breakdown and continues to shake head no.
[2021-01-22 05:14] LABS: Absolute Lymphocyte Count 0.14 X10^3/uL (0.83-4.51); Absolute Neutrophil Count 6.5 X10^3/uL (2.0-7.7); Basophil# 0.01 X10^3/uL; Basophil% 0.1 % (0-1); Hematocrit 47.6 % (40-54); Hemoglobin 15.5 g/dL (13.0-16.5); Lymphocyte # 0.14 X10^3/ul (0.83-4.51); Mean Corp Hgb Conc 32.6 g/dL (32-36); Mean Corpuscular Hgb 28.9 pg (27.0-32.0); Mean Corpuscular Volume 88.8 fL (80-94); Mean Platelet Vol. 11.6 fl (6.2-12.0); Monocyte# 0.37 X10^3/uL; Monocyte% 5.3 % (0-10); NRBC Flagged by Analyzer 0 % (0-5); Neutrophil # 6.49 X10^3/uL (2.7-7.7); Neutrophil % 92.2 % (47-70); POSITIVE COUNT YES; POSITIVE DIFFERENTIAL YES; Platelet Count 58 K/mm3 (150-450); RBC Distribution Width CV 16.8 % (11.6-14.6); RBC Distribution Width SD 51.4 fl (35.1-43.9); Red Blood Count 5.36 M/mm3 (4.6-6.2)
[2021-01-22 05:17] LABS: Differential Indicated SCAN CRITERIA MET
[2021-01-22 05:24] LABS: Anion Gap 6 (5-15); BUN 55 mg/dL (7-18); BUN/Creat Ratio 47.4 RATIO (10-20); Calcium,Total 7.8 mg/dL (8.5-10.1); Chloride 92 mmol/L (98-107); Creatinine, Serum 1.16 mg/dL (0.70-1.30); EST Glomerular Filtration Rate 70 mL/min (>60); Est Glom Filt Rate - Afr Amer 84 mL/min (>60); Estimated Creatinine Clearance 68.06 ml/min; Glucose 215 mg/dL (74-106); Potassium 3.5 mmol/L (3.5-5.1); Sodium Level 139 mmol/L (136-145)
[2021-01-22] MEDS: Insulin Lispro 100 UNIT/ML INSULN.PEN SC ×4 (05:43→21:16)
[2021-01-22 05:51] LABS: Bedside Glucose 213 mg/dL (70-110)
[2021-01-22] MEDS: Senna/Docusate Sodium 1 Tablet 2 TABLET GT (06:08)
[2021-01-22] MEDS: Polyethylene Glycol 3350 17 GM PACKET GT (06:08)
[2021-01-22 06:10] LABS: Allen Test Positive; Base Excess 15 mmol/L (-2 to +2); Bicarbonate 40.6 mmol/L (22-26); Blood Gas Specimen Type ART; FI02 40; Mode CPAP/PS; O2 Delivery Device Adult Vent; PEEP 5; PO2 68 mmHG (75-100); PS 5; SITE L Radial; SO2 91 % (95-99); Total Carbon Dioxide 43 mmol/L; pCO2 74.4 mmHg (35-45); pH 7.35 (7.35-7.45)
--- NOTE | 2021-01-22 06:20 | NURSING ---
Dr Bell and Vic Harrison RT at bedside with this RN. Patient extubated and placed on 6L NC.
[2021-01-22] MEDS: CHLORHEXIDINE GLUC 2% CLOTH 1 EACH TOWELETTE TOPICAL (06:37)
--- NOTE | 2021-01-22 06:37 | PN.CC_ITS ---
Assessment & Plan Assessment/Plan (1) Respiratory failure: PLAN: RECOMMENDATIONS: 1. Bedside swallow evaluation 2. Wean FiO2 to keep saturations between 90 and 94%. 3. Okay to narrow antibiotic spectrum from my perspective 4. Continue scheduled bronchodilators and steroids. 5. Continue aggressive bowel regimen and diuretics 6. Out of bed as tolerated 7. Continue appropriate ICU prophylaxis. IMPRESSIONS: 1. Acute on chronic combined respiratory failure secondary to pseudomonal pneumonia Concern for multifactorial etiology, with underlying pulmonary infectious process leading to COPD exacerbation along with possible decompensated heart failure contributing. The patient did require intubation in the emergency department after failing to respond to noninvasive positive pressure ventilatory support. Patient successfully extubated on 01/22/2021. Cannot exclude the need for BiPAP with sleep given body habitus and CO2 retention. Continue scheduled bronchodilator therapy and IV steroids. Continue diuresis as tolerated by hemodynamics and renal function. 2. Chronic tobacco dependency/history of alcohol dependency Continues supportive measures as noted above. We will need to confirm with the patient's family his current use of tobacco and alcohol. In the interim, bronchodilators will be continued. 3. Acute versus chronic kidney disease Improving. Likely prerenal in etiology and related to acute presentation. Continue to monitor urine output for now. No current indication for renal replacement therapy. 4. Acute liver injury Unclear etiology. GGT and lipase were normal. Liver ultrasound revealed no overt findings concerning for cholecystitis. Liver function is slowly improving without intervention. Continue to monitor. TIME: 38 minutes of critical care time, independent of procedures, was spent addressing the patient's acute on chronic combined respiratory failure, chronic tobacco/alcohol dependency, acute versus chronic kidney disease, acute liver in jury, review of all data and collaboration with the care team. (5:45 AM to 6:45 AM) Subjective Subjective Patient did well overnight. Patient responded well to diuretic therapy and was able to tolerate a spontaneous breathing trial this morning. No fevers been noted overnight. Patient does have thrombocytopenia, but nursing is not reporting any clinical signs of bleeding. Patient has not had a bowel movement overnight. Objective Data Objective Data Vital Signs: Vital Signs Temp Pulse Resp BP Pulse Ox 36.1 C L 97 16 142/97 H 93 01/22/21 06:00 01/22/21 06:00 01/22/21 06:00 01/22/21 06:00 01/22/21 06:00 Oxygen Flow Rate (L/min) 50 Oxygen Delivery Method Mechanical Ventilator Weight: 121.6 kg Body Mass Index (BMI) 43.7 Intake & Output: Intake and Output for Last 24 Hours 01/20/21 01/21/21 01/22/21 23:59 23:59 23:59 Intake Total 2327.90 / 2334.02 2150.42 / 2162.92 442.5 / 442.5 Output Total 2170 / 2295 3920 / 3920 325 / 325 Balance 157.90 / 39.02 -1769.58 / -1757.08 117.5 / 117.5 Lab / Micro Data Result Diagrams: 01/22/21 03:56 01/22/21 03:56 Labs: Laboratory Results - last 24 hr 01/21/21 01/21/21 01/21/21 11:36 17:49 23:14 WBC RBC Hgb Hct MCV MCH MCHC RDW Std Deviation RDW Coeff of Etelvina Plt Count MPV Immature Gran % (Auto) Neut % (Auto) Lymph % (Auto) [place] % (Auto) Eos % (Auto) Baso % (Auto) Absolute Neuts (auto) Absolute Lymphs (auto) Nucleated RBC % Sodium Potassium Chloride Carbon Dioxide Anion Gap BUN Creatinine Estim Creat Clear Calc Est GFR (MDRD) Af Amer Est GFR (MDRD) Non-Af BUN/Creatinine Ratio Glucose Calcium POC Glucose 191 H 210 H 174 H 01/22/21 01/22/21 01/22/21 03:56 03:56 05:42 WBC 7.0 RBC 5.36 Hgb 15.5 Hct 47.6 MCV 88.8 MCH 28.9 MCHC 32.6 RDW Std Deviation 51.4 H RDW Coeff of Etelvina 16.8 H Plt Count 58 L MPV 11.6 Immature Gran % (Auto) 0.400 Neut % (Auto) 92.2 H Lymph % (Auto) 2.0 L [place] % (Auto) 5.3 Eos % (Auto) 0.0 Baso % (Auto) 0.1 Absolute Neuts (auto) 6.5 Absolute Lymphs (auto) 0.14 L Nucleated RBC % 0 Sodium 139 Potassium 3.5 Chloride 92 L Carbon Dioxide 41.0 H Anion Gap 6 BUN 55 H Creatinine 1.16 Estim Creat Clear Calc 68.06 Est GFR (MDRD) Af Amer 84 Est GFR (MDRD) Non-Af 70 BUN/Creatinine Ratio 47.4 H Glucose 215 H Calcium 7.8 L POC Glucose 213 H Micro: Microbiology 01/18/21 09:25 Blood Culture (Wb) - Anticubital Left Blood Culture - Preliminary No growth in 48 hours. 01/18/21 09:30 Blood Culture (Wb) - Anticubital Right Blood Culture - Preliminary No growth in 48 hours. 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 lactose medical certification specialist 01/18/21 12:30 Interface Orders SARS-CoV-2 Antigen (Rapid) - Final 01/18/21 Unknown Urine Catheter - Reyez Legionella Antigen - Final 01/18/21 Unknown Urine Catheter - Reyez Streptococcus pneumoniae Antigen (M - Final ABG Data ABG results: ABG 01/22/21 06:04 Specimen Type ART Sample Site L Radial pH 7.35 Bicarbonate Actual 40.6 H Total CO2 43 Base Excess 15 H O2 Saturation 91 L O2 % 40 ABG pCO2 74.4 H* ABG pO2 68 L [place] Test Positive O2 Delivery Device Adult Vent Vent Mode CPAP/PS POC PEEP 5 POC Pressure Suppt 5 Crit Call To/Read Back Yes Blood Gas Notified Whom Dr Bell Radiography Diagnostic Testing: Radiology Impression Echocardiogram 01/21/21 07:00 Interpretation Summary The study was technically difficult. Contrast injection was performed. Based upon the 2D echocardiographic and contrast enhanced images obtained there appears to be left ventricular size with regional wall motion abnormalities with overall preserved LV systolic function. The estimated ejection fraction is 55 %. D shaped septum in systole and diastole. The left atrium is mildly enlarged. Trivial mitral valve insufficiency. Trivial tricuspid valve insufficiency. Mild focal aortic valve thickening. Trivial pericardial effusion. There are no echocardiographic indications of cardiac tamponade. Right ventricular systolic pressure estimated to be 51 mmHg compatible with pulmonary hypertension. No evidence for diastolic dysfunction. Ordering Physician: Porfirio Latham Referring Physician: Mariia Joe Performed By: Dante Sevilla RCS Rhythm Strip Rhythm Strip: Sinus Rhythm Rate: 90 Ectopy: None Physical Exam Const no apparent distress Constitutional Narrative: Anasarca. Successfully liberated from the ventilator. No stridor noted. HEENT normocephalic and head/scalp atraumatic Mouth: endotracheal tube in place and OG tube in place Throat: posterior oropharynx normal Eyes PERRL, EOMs intact bilaterally and conjunctivae normal Neck full ROM Chest inspection of chest normal Resp normal respiratory effort and no use of accessory muscles Auscultation: diminished lung sounds; Negative for rales, rhonchi or wheezes Cardio regular rate, regular rhythm, S1 normal heart sound, S2 normal heart sound, no murmurs, no rub and no gallops GI normal to inspection, nondistended, normoactive bowel sounds no CVA tenderness Extremity General Extremity: edema; Negative for clubbing or cyanosis Skin no rashes or lesions noted Neuro CN's II-XII intact bilaterally, moves all extremities and no focal motor defici ts Sensorium / Orientation: awake and alert Psych Mood & Affect: flat affect Charges/Coding Procedures Hospitalists Procedures: [id number] Critial Care 1st Hr
[2021-01-22] MEDS: Ipratropium/Albuterol Sulfate 3 ML AMPUL.NEB INHALATION ×4 (06:57→18:36)
[2021-01-22] MEDS: 0.9% Saline Lock 10 ML Syringe IV ×3 (08:16→16:39)
[2021-01-22] MEDS: Furosemide 40 MG/4 ML Vial IV ×2 (08:16→16:39)
[2021-01-22] MEDS: Lansoprazole 15 MG Capsule.DR NG (11:41)
[2021-01-22 11:50] LABS: Bedside Glucose 158 mg/dL (70-110)
[2021-01-22 11:55] LABS: Pathologist Review Reviewed
[2021-01-22] MEDS: Albuterol 2.5 MG/3 ML VIAL.NEB. INHALATION (12:10)
--- NOTE | 2021-01-22 12:12 | NURSING ---
Education re chronic illness deferred till acute illness resolving
--- NOTE | 2021-01-22 16:11 | PN.HOSP_ITS ---
Subjective Subjective Extubated this morning, doing well on BiPAP. Was able to get up and walk a few steps with me and the nurse Objective Data Objective Data Vital Signs: Vital Signs Temp Pulse Resp BP Pulse Ox 96.7 F L 89 18 152/100 H 93 01/22/21 13:00 01/22/21 15:43 01/22/21 15:43 01/22/21 13:00 01/22/21 13:36 Oxygen Flow Rate (L/min) 8 Oxygen Delivery Method Nasal Cannula Weight: 268 lb 1.314 oz Body Mass Index (BMI) 43.7 Intake & Output: Intake and Output for Last 24 Hours 01/21/21 01/22/21 01/23/21 03:59 03:59 03:59 Intake Total 2440.28 / 2456.48 2145.70 / 2158.20 382.5 / 382.5 Output Total 2310 / 2310 3770 / 3770 700 / 700 Balance 130.28 / 146.48 -1624.30 / -1611.80 -317.5 / -317.5 Lab / Micro Data Result Diagrams: 01/22/21 03:56 01/22/21 03:56 Labs: Laboratory Results - last 24 hr 01/18/21 01/21/21 01/21/21 09:10 17:49 23:14 WBC RBC Hgb Hct MCV MCH MCHC RDW Std Deviation RDW Coeff of [place] Plt Count MPV Immature Gran % (Auto) Neut % (Auto) Lymph % (Auto) [place] % (Auto) Eos % (Auto) Baso % (Auto) Absolute Neuts (auto) Absolute Lymphs (auto) Nucleated RBC % Diff Path Review Reviewed Sodium Potassium Chloride Carbon Dioxide Anion Gap BUN Creatinine Estim Creat Clear Calc Est GFR (MDRD) Af Amer Est GFR (MDRD) Non-Af BUN/Creatinine Ratio Glucose Calcium POC Glucose 210 H 174 H 01/22/21 01/22/21 01/22/21 03:56 03:56 05:42 WBC 7.0 RBC 5.36 Hgb 15.5 Hct 47.6 MCV 88.8 MCH 28.9 MCHC 32.6 RDW Std Deviation 51.4 H RDW Coeff of Etelvina 16.8 H Plt Count 58 L MPV 11.6 Immature Gran % (Auto) 0.400 Neut % (Auto) 92.2 H Lymph % (Auto) 2.0 L [place] % (Auto) 5.3 Eos % (Auto) 0.0 Baso % (Auto) 0.1 Absolute Neuts (auto) 6.5 Absolute Lymphs (auto) 0.14 L Nucleated RBC % 0 Diff Path Review Sodium 139 Potassium 3.5 Chloride 92 L Carbon Dioxide 41.0 H Anion Gap 6 BUN 55 H Creatinine 1.16 Estim Creat Clear Calc 68.06 Est GFR (MDRD) Af Amer 84 Est GFR (MDRD) Non-Af 70 BUN/Creatinine Ratio 47.4 H Glucose 215 H Calcium 7.8 L POC Glucose 213 H 01/22/21 11:27 WBC RBC Hgb Hct MCV MCH MCHC RDW Std Deviation RDW Coeff of [place] Plt Count MPV Immature Gran % (Auto) Neut % (Auto) Lymph % (Auto) [place] % (Auto) Eos % (Auto) Baso % (Auto) Absolute Neuts (auto) Absolute Lymphs (auto) Nucleated RBC % Diff Path Review Sodium Potassium Chloride Carbon Dioxide Anion Gap BUN Creatinine Estim Creat Clear Calc Est GFR (MDRD) Af Amer Est GFR (MDRD) Non-Af BUN/Creatinine Ratio Glucose Calcium POC Glucose 158 H Micro: Microbiology 01/18/21 09:25 Blood Culture (Wb) - Anticubital Left Blood Culture - Preliminary No growth in 48 hours. 01/18/21 09:30 Blood Culture (Wb) - Anticubital Right Blood Culture - Preliminary No growth in 48 hours. 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 lactose safety teacher 01/18/21 12:30 Interface Orders SARS-CoV-2 Antigen (Rapid) - Final 01/18/21 Unknown Urine Catheter - Reyez Legionella Antigen - Final 01/18/21 Unknown Urine Catheter - Reyez Streptococcus pneumoniae Antigen (M - Final ABG Data ABG results: ABG 01/22/21 06:04 Specimen Type ART Sample Site L Radial pH 7.35 Bicarbonate Actual 40.6 H Total CO2 43 Base Excess 15 H O2 Saturation 91 L O2 % 40 ABG pCO2 74.4 H* ABG pO2 68 L [place] Test Positive O2 Delivery Device Adult Vent Vent Mode CPAP/PS POC PEEP 5 POC Pressure Suppt 5 Crit Call To/Read Back Yes Blood Gas Notified Whom Dr Bell Rhythm Strip Rhythm Strip: Sinus Rhythm Rate: 90 Ectopy: None Physical Exam Const alert, oriented x3 and no apparent distress General Appearance: cooperative HEENT normocephalic and moist oral mucous membranes Eyes PERRL, EOMs intact bilaterally and conjunctivae normal Neck supple and no JVD Resp normal respiratory effort, no retractions, no use of accessory muscles and clear to auscultation bilaterally Auscultation: diminished lung sounds; Negative for crackles, rales, rhonchi or wheezes Cardio regular rate, regular rhythm, S1 normal heart sound, S2 normal heart sound and no murmurs GI soft to palpation, non-tender and non-distended; Negative for hepatosplenomegaly Extremity General Extremity: edema; Negative for clubbing or cyanosis Skin no rashes or lesions noted Neuro no focal motor deficits and no sensory deficits noted Psych affect normal Appearance: appropriate Assessment & Plan Assessment/Plan (1) Respiratory failure: QUALIFIERS: Chronicity: acute on chronic Respiratory failure complication: hypoxia and hypercapnia Qualified Code(s): J96.21 - Acute and chronic respiratory failure with hypoxia; J96.22 - Acute and chronic respiratory failure with hypercapnia (2) Acidosis, lactic: (3) Acute kidney injury: (4) Pulmonary hypertension: (5) Pneumonia: QUALIFIERS: Pneumonia type: due to Pseudomonas Laterality: bilateral Lung location: lower lobe of lung Qualified Code(s): J15.1 - Pneumonia due to Pseudomonas PLAN: #Acute hypoxic and hypercapnic respiratory failure due to COPD exacerbation versus pulmonary hypertension * Admit to ICU. Patient emergently intubated in the ED. * Vent settings as per critical care. * Titrate oxygen to maintain saturation above 90% * IV Solu-Medrol 40 mg every 8 * Patient meets criteria for sepsis but does appear like all this is due to his hypoxia as patient was literally blue on admission. Lactic acid was 10 and this is also likely due to patient being blue. * Will however cover patient with empiric antibiotics and get blood cultures and sputum cultures. * consult critical care * order 2D echo; cycle troponins * diurese with IV lasix due to concerns about heart failure exacerbation * sedated with propofol and fentanul * 01/19/2021: Failed spontaneous breathing trial this morning, will continue with intubation and sedation, wean as able * 01/21/2021: Continue with weaning sedation more alert today's failed spontaneous breathing trial this morning. * 01/22/2021: Extubated this morning, tolerating BiPAP very well. Continues to improve with diuresis secondary to his anasarca and his pulmonary hypertension #Acute COPD exacerbation: as above #Pulmonary hypertension * kidney function is impaired, so will hold off on diuretics for now. * order 2D echo * monitor intake and output. Fluid restriction to 1500cc daily. * 01/22/2021: Echo demonstrates moderate pulmonary hypertension with a pressure of 51 mmHg. We will continue with twice daily diuresis given his anasarca #Septic shock due to pseudomonal pneumonia * Patient was tachycardic and tachypneic and also has elevated lactic acid. He therefore meets the criteria for septic shock per Lactic acid criteria * will start on broad spectrum antibiotics for now. * hold off on IVF due to concerns about heart failure * get blood cultures * 01/19/2021: Blood cultures are still pending, will continue with Zosyn * #ERYN * Creatinine is 2.31; no baseline in the system * cant hydrate with IVF as patient may also be fluid overloaded, annd so is being diuresed * will trend Cr * 01/19/2021: Creatinine down to 1.69. * 01/21/2021: Creatinine down to 1.31, can give Lasix if necessary given his fluid status. * 01/22/2021: Creatinine is 1.16 #Elevated BP * Blood pressure was 176/109 at time of arrival. Patient does not appear to be a known hypertensive. This may be due to his respiratory failure as well and increased work of breathing * IV hydralazine as needed. If blood pressure remains elevated, will consider starting blood pressure medications. * 01/19/2021: Blood pressure is stable DVT: lovenox Charges/Coding Visit Charges Inpatient E&M: 99135 Subs Hosp L2
[2021-01-22 16:15] LABS: Bedside Glucose 180 mg/dL (70-110)
[2021-01-22 21:25] LABS: Bedside Glucose 206 mg/dL (70-110)
[2021-01-23] VITALS (27 sets, daily range): BP systolic 116–145; BP diastolic 76–97; PULSE 85–104; RESP 12–28; TEMP 36.1–36.8; O2SAT 88–99
[2021-01-23 05:42] LABS: Absolute Lymphocyte Count 0.13 X10^3/uL (0.83-4.51); Absolute Neutrophil Count 7.2 X10^3/uL (2.0-7.7); Hematocrit 51.2 % (40-54); Hemoglobin 15.9 g/dL (13.0-16.5); Lymphocyte # 0.13 X10^3/ul (0.83-4.51); Lymphocyte % 1.7 % (19-41); Mean Corp Hgb Conc 31.1 g/dL (32-36); Mean Corpuscular Hgb 28.7 pg (27.0-32.0); Mean Corpuscular Volume 92.4 fL (80-94); Monocyte% 6.4 % (0-10); NRBC Flagged by Analyzer 0 % (0-5); Neutrophil # 7.15 X10^3/uL (2.7-7.7); Neutrophil % 91.5 % (47-70); POSITIVE COUNT YES; POSITIVE DIFFERENTIAL YES; RBC Distribution Width CV 17.7 % (11.6-14.6); RBC Distribution Width SD 56.1 fl (35.1-43.9); Red Blood Count 5.54 M/mm3 (4.6-6.2); White Blood Count 7.8 K/mm3 (4.4-11.0)
[2021-01-23 05:55] LABS: Anion Gap 6 (5-15); BUN 51 mg/dL (7-18); BUN/Creat Ratio 43.2 RATIO (10-20); Calcium,Total 7.9 mg/dL (8.5-10.1); Chloride 91 mmol/L (98-107); Creatinine, Serum 1.18 mg/dL (0.70-1.30); EST Glomerular Filtration Rate 68 mL/min (>60); Est Glom Filt Rate - Afr Amer 83 mL/min (>60); Estimated Creatinine Clearance 66.91 ml/min; Glucose 150 mg/dL (74-106); Magnesium 1.7 mg/dL (1.6-2.6); Phosphorus 4.2 mg/dL (2.5-4.9); Potassium 4.3 mmol/L (3.5-5.1); Sodium Level 139 mmol/L (136-145)
[2021-01-23 06:12] LABS: Differential Indicated SCAN CRITERIA MET; Platelet Count 50 K/mm3 (150-450)
--- NOTE | 2021-01-23 06:48 | PCM.PN.INT ---
Assessment & Plan Assessment/Plan (1) Respiratory failure: QUALIFIERS: Chronicity: acute on chronic Respiratory failure complication: hypoxia and hypercapnia Qualified Code(s): J96.21 - Acute and chronic respiratory failure with hypoxia; J96.22 - Acute and chronic respiratory failure with hypercapnia PLAN: RECOMMENDATIONS: 1. Continue fluid restriction and diuresis 2. Wean FiO2 to keep saturations between 90 and 94%. 3. Continue antibiotics 4. Continue scheduled bronchodilators, but wean steroids. 5. Continue aggressive bowel regimen. Possible suppository if no bowel movement in the next 24 to 48 hours 6. Out of bed as tolerated 7. Continue appropriate ICU prophylaxis. 8. Possibly transfer from the intensive care unit later today pending response to BiPAP discontinuation IMPRESSIONS: 1. Acute on chronic combined respiratory failure secondary to pseudomonal pneumonia Concern for multifactorial etiology, with underlying pulmonary infectious process leading to COPD exacerbation along with possible decompensated heart failure contributing. The patient did require intubation in the emergency department after failing to respond to noninvasive positive pressure ventilatory support. Patient successfully extubated on 01/22/2021. Patient has tolerated BiPAP with sleep.. Continue scheduled bronchodilator therapy, but wean IV steroids. Continue diuresis as tolerated by hemodynamics and renal function. 2. Chronic tobacco dependency/history of alcohol dependency/thrombocytopenia Continues supportive measures as noted above. We will need to confirm with the patient's family his current use of tobacco and alcohol. In the interim, bronchodilators will be continued. Patient does have significant decrease in platelets, but no clinical bleeding has been noted. No transfusion at this time. Heparin products have been discontinued 48 hours ago. 3. Acute versus chronic kidney disease Improving. Likely prerenal in etiology and related to acute presentation. Continue to monitor urine output for now. No current indication for renal replacement therapy. An element of anasarca likely secondary to low albumin. May transition to Bumex if diuresis slows on current dosing. 4. Acute liver injury Unclear etiology. GGT and lipase were normal. Liver ultrasound revealed no overt findings concerning for cholecystitis. Liver function is slowly improving without intervention. Recheck liver function tomorrow. Continue to monitor. Subjective Subjective Patient did okay overnight. No bleeding has been reported by nursing or the patient. Patient has not had a bowel movement, but is denying any abdominal pain. No chest pain has been reported. Patient did tolerate nasal cannula oxygen yesterday. Objective Data Objective Data Vital Signs: Vital Signs Temp Pulse Resp BP Pulse Ox 36.4 C L 86 18 126/92 H 94 01/23/21 06:00 01/23/21 06:00 01/23/21 06:00 01/23/21 06:00 01/23/21 06:00 Oxygen Flow Rate (L/min) 6 Oxygen Delivery Method Bi-pap Weight: 120.3 kg Body Mass Index (BMI) 43.7 Intake & Output: Intake and Output for Last 24 Hours 01/21/21 01/22/21 01/23/21 23:59 23:59 23:59 Intake Total 2150.42 / 2162.92 1762.5 / 2022.5 310 / 310 Output Total 3920 / 3920 2275 / 2625 800 / 800 Balance -1769.58 / -1757.08 -512.5 / -602.5 -490 / -490 Lab / Micro Data Result Diagrams: 01/23/21 05:30 01/23/21 05:30 Labs: Laboratory Results - last 24 hr 01/18/21 01/22/21 01/22/21 09:10 11:27 16:07 WBC RBC Hgb Hct MCV MCH MCHC RDW Std Deviation RDW Coeff of [place] Plt Count MPV Immature Gran % (Auto) Neut % (Auto) Lymph % (Auto) [place] % (Auto) Eos % (Auto) Baso % (Auto) Absolute Neuts (auto) Absolute Lymphs (auto) Nucleated RBC % Diff Path Review Reviewed Sodium Potassium Chloride Carbon Dioxide Anion Gap BUN Creatinine Estim Creat Clear Calc Est GFR (MDRD) Af Amer Est GFR (MDRD) Non-Af BUN/Creatinine Ratio Glucose Calcium Phosphorus Magnesium POC Glucose 158 H 180 H 01/22/21 01/23/21 01/23/21 21:16 05:30 05:30 WBC 7.8 RBC 5.54 Hgb 15.9 Hct 51.2 MCV 92.4 MCH 28.7 MCHC 31.1 L RDW Std Deviation 56.1 H RDW Coeff of [place] 17.7 H Plt Count 50 L* MPV 11.0 Immature Gran % (Auto) 0.400 Neut % (Auto) 91.5 H Lymph % (Auto) 1.7 L [place] % (Auto) 6.4 Eos % (Auto) 0.0 Baso % (Auto) 0.0 Absolute Neuts (auto) 7.2 Absolute Lymphs (auto) 0.13 L Nucleated RBC % 0 Diff Path Review Sodium 139 Potassium 4.3 Chloride 91 L Carbon Dioxide 42.0 H Anion Gap 6 BUN 51 H Creatinine 1.18 Estim Creat Clear Calc 66.91 Est GFR (MDRD) Af Amer 83 Est GFR (MDRD) Non-Af 68 BUN/Creatinine Ratio 43.2 H Glucose 150 H Calcium 7.9 L Phosphorus 4.2 Magnesium 1.7 POC Glucose 206 H Micro: Microbiology 01/18/21 09:25 Blood Culture (Wb) - Anticubital Left Blood Culture - Preliminary No growth in 48 hours. 01/18/21 09:30 Blood Culture (Wb) - Anticubital Right Blood Culture - Preliminary No growth in 48 hours. 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 lactose aviation mechanic 01/18/21 12:30 Interface Orders SARS-CoV-2 Antigen (Rapid) - Final 01/18/21 Unknown Urine Catheter - Reyez Legionella Antigen - Final 01/18/21 Unknown Urine Catheter - Reyez Streptococcus pneumoniae Antigen (M - Final Rhythm Strip Rhythm Strip: Sinus Rhythm Rate: 90 Ectopy: None Physical Exam Const alert, oriented x3 and no apparent distress Constitutional Narrative: Anasarca. No stridor noted. Nutritional Appearance: morbidly obese HEENT normocephalic and head/scalp atraumatic Eyes PERRL, EOMs intact bilaterally and conjunctivae normal Neck full ROM Chest inspection of chest normal Resp normal respiratory effort and no use of accessory muscles Auscultation: wheezes scattered wheezes and diminished lung sounds; Negative for rales or rhonchi Cardio regular rate, regular rhythm, S1 normal heart sound, S2 normal heart sound, no murmurs, no rub and no gallops GI soft to palpation and non-tender Inspection: anasarca present and abdominal distention no CVA tenderness Extremity General Extremity: edema; Negative for clubbing or cyanosis Skin no rashes or lesions noted Neuro CN's II-XII intact bilaterally, moves all extremities and no focal motor deficits Sensorium / Orientation: awake and alert Psych Mood & Affect: flat affect Charges/Coding Visit Charges Inpatient E&M: 14530 Subs Hosp L3
[2021-01-23 06:50] LABS: Differential Comment SCANNED
[2021-01-23 06:51] LABS: Platelet Estimate MKD DEC (ADEQ)
[2021-01-23] MEDS: Ipratropium/Albuterol Sulfate 3 ML AMPUL.NEB INHALATION ×4 (06:52→20:04)
[2021-01-23 08:05] LABS: Bedside Glucose 141 mg/dL (70-110)
--- NOTE | 2021-01-23 09:38 | PN.HOSP_ITS ---
Subjective Subjective Doing well, no issues overnight. Wears BiPAP overnight and is now maintaining his oxygen sats on 2 L nasal cannula. Objective Data Objective Data Vital Signs: Vital Signs Temp Pulse Resp BP Pulse Ox 97.6 F L 90 15 137/95 H 97 01/23/21 07:00 01/23/21 07:00 01/23/21 07:00 01/23/21 07:00 01/23/21 07:00 Oxygen Flow Rate (L/min) 2 Oxygen Delivery Method Nasal Cannula Weight: 265 lb 3.457 oz Body Mass Index (BMI) 43.7 Intake & Output: Intake and Output for Last 24 Hours 01/22/21 01/23/21 01/24/21 03:59 03:59 03:59 Intake Total 2145.70 / 2158.20 1642.5 / 1642.5 290 / 290 Output Total 3770 / 3770 2450 / 2450 600 / 600 Balance -1624.30 / -1611.80 -807.5 / -807.5 -310 / -310 Lab / Micro Data Result Diagrams: 01/23/21 05:30 01/23/21 05:30 Labs: Laboratory Results - last 24 hr 01/18/21 01/22/21 01/22/21 09:10 11:27 16:07 WBC RBC Hgb Hct MCV MCH MCHC RDW Std Deviation RDW Coeff of [place] Plt Count MPV Immature Gran % (Auto) Neut % (Auto) Lymph % (Auto) [place] % (Auto) Eos % (Auto) Baso % (Auto) Absolute Neuts (auto) Absolute Lymphs (auto) Nucleated RBC % Differential Comment Diff Path Review Reviewed Platelet Estimate Sodium Potassium Chloride Carbon Dioxide Anion Gap BUN Creatinine Estim Creat Clear Calc Est GFR (MDRD) Af Amer Est GFR (MDRD) Non-Af BUN/Creatinine Ratio Glucose Calcium Phosphorus Magnesium POC Glucose 158 H 180 H 01/22/21 01/23/21 01/23/21 21:16 05:30 05:30 WBC 7.8 RBC 5.54 Hgb 15.9 Hct 51.2 MCV 92.4 MCH 28.7 MCHC 31.1 L RDW Std Deviation 56.1 H RDW Coeff of [place] 17.7 H Plt Count 50 L* MPV 11.0 Immature Gran % (Auto) 0.400 Neut % (Auto) 91.5 H Lymph % (Auto) 1.7 L [place] % (Auto) 6.4 Eos % (Auto) 0.0 Baso % (Auto) 0.0 Absolute Neuts (auto) 7.2 Absolute Lymphs (auto) 0.13 L Nucleated RBC % 0 Differential Comment SCANNED Diff Path Review May foll Platelet Estimate MKD DEC Sodium 139 Potassium 4.3 Chloride 91 L Carbon Dioxide 42.0 H Anion Gap 6 BUN 51 H Creatinine 1.18 Estim Creat Clear Calc 66.91 Est GFR (MDRD) Af Amer 83 Est GFR (MDRD) Non-Af 68 BUN/Creatinine Ratio 43.2 H Glucose 150 H Calcium 7.9 L Phosphorus 4.2 Magnesium 1.7 POC Glucose 206 H 01/23/21 07:42 WBC RBC Hgb Hct MCV MCH MCHC RDW Std Deviation RDW Coeff of [place] Plt Count MPV Immature Gran % (Auto) Neut % (Auto) Lymph % (Auto) [place] % (Auto) Eos % (Auto) Baso % (Auto) Absolute Neuts (auto) Absolute Lymphs (auto) Nucleated RBC % Differential Comment Diff Path Review Platelet Estimate Sodium Potassium Chloride Carbon Dioxide Anion Gap BUN Creatinine Estim Creat Clear Calc Est GFR (MDRD) Af Amer Est GFR (MDRD) Non-Af BUN/Creatinine Ratio Glucose Calcium Phosphorus Magnesium POC Glucose 141 H Micro: Microbiology 01/18/21 09:25 Blood Culture (Wb) - Anticubital Left Blood Culture - Prel iminary No growth in 48 hours. 01/18/21 09:30 Blood Culture (Wb) - Anticubital Right Blood Culture - Preliminary No growth in 48 hours. 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 lactose bottom wheeler 01/18/21 12:30 Interface Orders SARS-CoV-2 Antigen (Rapid) - Final 01/18/21 Unknown Urine Catheter - Reyez Legionella Antigen - Final 01/18/21 Unknown Urine Catheter - Reyez Streptococcus pneumoniae Antigen (M - Final Rhythm Strip Rhythm Strip: Sinus Rhythm Rate: 90 Ectopy: None Physical Exam Const alert, oriented x3 and no apparent distress General Appearance: cooperative, intubated and patient mechanically ventilated HEENT normocephalic, head/scalp atraumatic and moist oral mucous membranes Eyes PERRL, EOMs intact bilaterally and conjunctivae normal Neck supple and no JVD Resp normal respiratory effort, no retractions, no use of accessory muscles and clear to auscultation bilaterally Auscultation: wheezes expiratory wheezes and scattered wheezes and diminished lung sounds; Negative for crackles, rales or rhonchi Cardio regular rate, regular rhythm, S1 normal heart sound, S2 normal heart sound and no murmurs GI soft to palpation, non-tender and non-distended; Negative for hepatosplenomegaly Extremity General Extremity: edema bilateral lower extremity; Negative for clubbing or cyanosis Skin no rashes or lesions noted Neuro no focal motor deficits and no sensory deficits noted Psych affect normal Appearance: appropriate Assessment & Plan Assessment/Plan (1) Respiratory failure: QUALIFIERS: Chronicity: acute on chronic Respiratory failure complication: hypoxia and hypercapnia Qualified Code(s): J96.21 - Acute and chronic respiratory failure with hypoxia; J96.22 - Acute and chronic respiratory failure with hypercapnia (2) Acidosis, lactic: (3) Acute kidney injury: (4) Pulmonary hypertension: (5) Pneumonia: QUALIFIERS: Pneumonia type: due to Pseudomonas Laterality: bilateral Lung location: lower lobe of lung Qualified Code(s): J15.1 - Pneumonia due to Pseudomonas (6) Thrombocytopenia: PLAN: #Acute hypoxic and hypercapnic respiratory failure due to COPD exacerbation versus pulmonary hypertension * Admit to ICU. Patient emergently intubated in the ED. * Vent settings as per critical care. * Titrate oxygen to maintain saturation above 90% * IV Solu-Medrol 40 mg every 8 * Patient meets criteria for sepsis but does appear like all this is due to his hypoxia as patient was literally blue on admission. Lactic acid was 10 and this is also likely due to patient being blue. * Will however cover patient with empiric antibiotics and get blood cultures and sputum cultures. * consult critical care * order 2D echo; cycle troponins * diurese with IV lasix due to concerns about heart failure exacerbation * sedated with propofol and fentanul * 01/19/2021: Failed spontaneous breathing trial this morning, will continue with intubation and sedation, wean as able * 01/21/2021: Continue with weaning sedation more alert today's failed spontaneous breathing trial this morning. * 01/22/2021: Extubated this morning, tolerating BiPAP very well. Continues to improve with diuresis secondary to his anasarca and his pulmonary hypertension * 01/23/2021: Continue with Lasix twice daily, he does have room his renal function to handle this. Continue with Solu-Medrol dosing 3 times daily and he was transitioned from Zosyn to Cipro for the pneumonia * #Pulmonary hypertension * kidney function is impaired, so will hold off on diuretics for now. * order 2D echo * monitor intake and output. Fluid restriction to 1500cc daily. * 01/22/2021: Echo demonstrates moderate pulmonary hypertension with a pressure of 51 mmHg. We will continue with twice daily diuresis given his anasarca * 01/23/2021: Continue with Lasix twice daily does have still continued anasarca with dependent edema in all extremities, creatinine today is 1.18 however his CO2 is 42 therefore he may need a break from diuresis at some point #Septic shock due to pseudomonal pneumonia/thrombocytopenia * Patient was tachycardic and tachypneic and also has elevated lactic acid. He therefore meets the criteria for septic shock per Lactic acid criteria * will start on broad spectrum antibiotics for now. * hold off on IVF due to concerns about heart failure * get blood cultures * 01/19/2021: Blood cultures are still pending, will continue with Zosyn * 01/23/2021: Transition Zosyn to Cipro. Thrombocytopenia could be reactive however will discontinue Lovenox #ERYN * Creatinine is 2.31; no baseline in the system * cant hydrate with IVF as patient may also be fluid overloaded, annd so is being diuresed * will trend Cr * 01/19/2021: Creatinine down to 1.69. * 01/21/2021: Creatinine down to 1.31, can give Lasix if necessary given his fluid status. * 01/22/2021: Creatinine is 1.16 #Elevated BP * Blood pressure was 176/109 at time of arrival. Patient does not appear to be a known hypertensive. This may be due to his respiratory failure as well and increased work of breathing * IV hydralazine as needed. If blood pressure remains elevated, will consider starting blood pressure medications. * 01/19/2021: Blood pressure is stable DVT: SCDs secondary to thrombocytopenia Charges/Coding Visit Charges Inpatient E&M: 84281 Subs Hosp L2
[2021-01-23] MEDS: Ciprofloxacin 500 MG Tablet PO ×2 (10:21→21:34)
[2021-01-23] MEDS: Furosemide 40 MG/4 ML Vial IV ×2 (10:21→17:38)
[2021-01-23] MEDS: Polyethylene Glycol 3350 17 GM PACKET PO (10:22)
[2021-01-23] MEDS: Pantoprazole Sodium 40 MG Tablet PO (10:22)
[2021-01-23] MEDS: Senna/Docusate Sodium 1 Tablet 2 TABLET PO ×2 (10:25→21:35)
--- NOTE | 2021-01-23 10:50 | CASEMGMT ---
COURT CM participated in ICU inter disciplinary rounds this am in patients room. Patient continues on NC O2 at 3-5 LPM. Patient continues on IV Lasix. Will monitor need for increased home oxygen at discharge. Will monitor progress with therapy for possible discharge needs. CM will continue to follow this patient and plan for a safe discharge.
[2021-01-23] MEDS: Insulin Lispro 100 UNIT/ML INSULN.PEN SC ×2 (11:14→17:37)
[2021-01-23 11:20] LABS: Bedside Glucose 189 mg/dL (70-110)
[2021-01-23 12:17] LABS: Pathologist Review Reviewed
--- NOTE | 2021-01-23 13:30 | CASEMGMT ---
Social Work SW met with pt to discuss financial concerns as pt is listed as self pay. Pt confirms that he does not have insurance. Pt stating that he was on Medicaid until July 2020 when he was dropped because he makes too much money. Pt states that he was also dropped from [employer] and was working but was laid off in November 2020 due to medical reasons. Pt currently has no income. SW assisted pt in completing Medicaid application. Pt has no information on 's financial status and therefore cannot complete application. With pt permission, phone call to pt and VM left requesting return call for assistance on completing application. SW will await Niva's call. SW inquired about pt ability to afford new prescriptions and pt is unable to answer stating it depends. SW to follow to assist with Medicaid application. SPARKLE Emery
[2021-01-23 18:00] LABS: Bedside Glucose 396 mg/dL (70-110)
[2021-01-23 22:01] LABS: Bedside Glucose 114 mg/dL (70-110)
[2021-01-23] MEDS: Nystatin Powder 15gm Bottle 1 APPLIC TOPICAL (22:48)
[2021-01-24] VITALS (18 sets, daily range): BP systolic 133–147; BP diastolic 66–77; PULSE 84–110; RESP 14–20; TEMP 36.1–36.8; O2SAT 89–95
[2021-01-24 05:47] LABS: Absolute Lymphocyte Count 0.15 X10^3/uL (0.83-4.51); Absolute Neutrophil Count 8.2 X10^3/uL (2.0-7.7); Basophil# 0.01 X10^3/uL; Basophil% 0.1 % (0-1); Hematocrit 51.9 % (40-54); Hemoglobin 15.8 g/dL (13.0-16.5); Lymphocyte # 0.15 X10^3/ul (0.83-4.51); Lymphocyte % 1.7 % (19-41); Mean Corp Hgb Conc 30.4 g/dL (32-36); Mean Corpuscular Hgb 28.2 pg (27.0-32.0); Mean Corpuscular Volume 92.7 fL (80-94); Mean Platelet Vol. 10.5 fl (6.2-12.0); Monocyte# 0.52 X10^3/uL; Monocyte% 5.8 % (0-10); NRBC Flagged by Analyzer 0 % (0-5); Neutrophil # 8.18 X10^3/uL (2.7-7.7); Neutrophil % 92.1 % (47-70); POSITIVE COUNT YES; POSITIVE DIFFERENTIAL YES; RBC Distribution Width CV 17.8 % (11.6-14.6); RBC Distribution Width SD 57.2 fl (35.1-43.9); White Blood Count 8.9 K/mm3 (4.4-11.0)
[2021-01-24 05:57] LABS: Differential Indicated SCAN CRITERIA MET; Platelet Count 43 K/mm3 (150-450)
[2021-01-24 06:40] LABS: Platelet Estimate MKD DEC (ADEQ)
[2021-01-24 06:41] LABS: Bedside Glucose 140 mg/dL (70-110)
[2021-01-24 06:48] LABS: ALB/GLOB Ratio 0.9 RATIO (0.9-2.4); AST(SGOT) 164 U/L (15-37); Alanine Aminotransfer ALT/SGPT 786 U/L (16-61); Albumin, Serum 2.7 g/dL (3.2-5.0); Alkaline Phosphatase 139 U/L (45-117); Anion Gap 4 (5-15); BUN 44 mg/dL (7-18); BUN/Creat Ratio 46.2 RATIO (10-20); Calcium,Total 8.1 mg/dL (8.5-10.1); Chloride 91 mmol/L (98-107); Creatinine, Serum 0.95 mg/dL (0.70-1.30); EST Glomerular Filtration Rate 87 mL/min (>60); Est Glom Filt Rate - Afr Amer 106 mL/min (>60); Estimated Creatinine Clearance 83.11 ml/min; Glucose 152 mg/dL (74-106); Potassium 4.3 mmol/L (3.5-5.1); Protein, Total 5.7 g/dL (6.4-8.2); Sodium Level 139 mmol/L (136-145)
[2021-01-24] MEDS: Ipratropium/Albuterol Sulfate 3 ML AMPUL.NEB INHALATION ×4 (07:27→20:34)
--- NOTE | 2021-01-24 08:35 | PCM.PN.INT ---
Assessment & Plan Assessment/Plan (1) Respiratory failure: QUALIFIERS: Chronicity: acute on chronic Respiratory failure complication: hypoxia and hypercapnia Qualified Code(s): J96.21 - Acute and chronic respiratory failure with hypoxia; J96.22 - Acute and chronic respiratory failure with hypercapnia PLAN: RECOMMENDATIONS: 1. Continue fluid restriction and diuresis as tolerated 2. Wean FiO2 to keep saturations between 90 and 94%. 3. Continue antibiotics to complete a 10-day course 4. Continue scheduled bronchodilators. Transition to p.o. steroids 5. Continue aggressive bowel regimen. Consider suppository 6. Out of bed as tolerated 7. Continue appropriate ICU prophylaxis. IMPRESSIONS: 1. Acute on chronic combined respiratory failure secondary to pseudomonal pneumonia Concern for multifactorial etiology, with underlying pulmonary infectious process leading to COPD exacerbation along with possible decompensated heart failure contributing. The patient did require intubation in the emergency department after failing to respond to noninvasive positive pressure ventilatory support. Patient successfully extubated on 01/22/2021. Patient has tolerated BiPAP with sleep. Patient will require additional work-up as an outpatient to see if this can be continued. Continue scheduled bronchodilator therapy, but transition to p.o. steroids. Continue diuresis as tolerated by hemodynamics and renal function. 2. Chronic tobacco dependency/history of alcohol dependency/thrombocytopenia Continues supportive measures as noted above. We will need to confirm with the patient's family his current use of tobacco and alcohol. In the interim, bronchodilators will be continued. Patient does have significant decrease in platelets, but no clinical bleeding has been noted. No transfusion at this time. Heparin products have been discontinued over 48 hours ago. Patient transition from Zosyn therapy yesterday. 3. Acute versus chronic kidney disease Resolved. Likely prerenal in etiology and related to acute presentation. Continue to monitor urine output for now. No current indication for renal replacement therapy. An element of anasarca likely secondary to low albumin. May transition to Bumex if diuresis slows on current dosing. 4. Acute liver injury Unclear etiology. GGT and lipase were normal. Liver ultrasound revealed no overt findings concerning for cholecystitis. Liver function is slowly improving without intervention. Continue to monitor intermittently. Subjective Subjective Patient transferred out of the intensive care unit yesterday. Patient feels subjectively improved compared to yesterday. Patient was able to tolerate BiPAP therapy overnight with no difficulties. Patient is denying any abdominal pain. Objective Data Objective Data Vital Signs: Vital Signs Temp Pulse Resp BP Pulse Ox 36.4 C L 87 19 H 133/77 H 93 01/24/21 06:19 01/24/21 07:00 01/24/21 06:19 01/24/21 06:19 01/24/21 06:19 Oxygen Flow Rate (L/min) 4 Oxygen Delivery Method Bi-pap Weight: 118.2 kg Body Mass Index (BMI) 43.7 Intake & Output: Intake and Output for Last 24 Hours 01/22/21 01/23/21 01/24/21 23:59 23:59 23:59 Intake Total 1762.5 / 2022.5 1430 / 1430 Output Total 2275 / 2625 4310 / 4310 250 / 250 Balance -512.5 / -602.5 -2880 / -2880 -250 / -250 Lab / Micro Data Result Diagrams: 01/24/21 05:38 01/24/21 05:38 Labs: Laboratory Results - last 24 hr 01/23/21 01/23/21 01/23/21 05:30 11:13 17:31 WBC RBC Hgb Hct MCV MCH MCHC RDW Std Deviation RDW Coeff of [place] Plt Count MPV Immature Gran % (Auto) Neut % (Auto) Lymph % (Auto) [place] % (Auto) Eos % (Auto) Baso % (Auto) Absolute Neuts (auto) Absolute Lymphs (auto) Nucleated RBC % Diff Path Review Reviewed Platelet Estimate Sodium Potassium Chloride Carbon Dioxide Anion Gap BUN Creatinine Estim Creat Clear Calc Est GFR (MDRD) Af Amer Est GFR (MDRD) Non-Af BUN/Creatinine Ratio Glucose Calcium Total Bilirubin AST ALT Alkaline Phosphatase Total Protein Albumin Globulin Albumin/Globulin Ratio POC Glucose 189 H 396 H 01/23/21 01/24/21 01/24/21 21:33 05:38 05:38 WBC 8.9 RBC 5.60 Hgb 15.8 Hct 51.9 MCV 92.7 MCH 28.2 MCHC 30.4 L RDW Std Deviation 57.2 H RDW Coeff of [place] 17.8 H Plt Count 43 L* MPV 10.5 Immature Gran % (Auto) 0.300 Neut % (Auto) 92.1 H Lymph % (Auto) 1.7 L [place] % (Auto) 5.8 Eos % (Auto) 0.0 Baso % (Auto) 0.1 Absolute Neuts (auto) 8.2 H Absolute Lymphs (auto) 0.15 L Nucleated RBC % 0 Diff Path Review May foll Platelet Estimate MKD DEC Sodium 139 Potassium 4.3 Chloride 91 L Carbon Dioxide 44.0 H Anion Gap 4 L BUN 44 H Creatinine 0.95 Estim Creat Clear Calc 83.11 Est GFR (MDRD) Af Amer 106 Est GFR (MDRD) Non-Af 87 BUN/Creatinine Ratio 46.2 H Glucose 152 H Calcium 8.1 L Total Bilirubin 4.30 H AST 164 H ALT 786 H Alkaline Phosphatase 139 H Total Protein 5.7 L Albumin 2.7 L Globulin 3.0 Albumin/Globulin Ratio 0.9 POC Glucose 114 H 01/24/21 06:15 WBC RBC Hgb Hct MCV MCH MCHC RDW Std Deviation RDW Coeff of [place] Plt Count MPV Immature Gran % (Auto) Neut % (Auto) Lymph % (Auto) [place] % (Auto) Eos % (Auto) Baso % (Auto) Absolute Neuts (auto) Absolute Lymphs (auto) Nucleated RBC % Diff Path Review Platelet Estimate Sodium Potassium Chloride Carbon Dioxide Anion Gap BUN Creatinine Estim Creat Clear Calc Est GFR (MDRD) Af Amer Est GFR (MDRD) Non-Af BUN/Creatinine Ratio Glucose Calcium Total Bilirubin AST ALT Alkaline Phosphatase Total Protein Albumin Globulin Albumin/Globulin Ratio POC Glucose 140 H Micro: Microbiology 01/18/21 09:30 Blood Culture (Wb) - Anticubital Right Blood Culture - Final No growth in 5 days. 01/18/21 09:25 Blood Culture (Wb) - Anticubital Left Blood Culture - Final No growth in 5 days. 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 No stridor noted. Nutritional Appearance: morbidly obese HEENT normocephalic and head/scalp atraumatic Eyes PERRL, EOMs intact bilaterally and conjunctivae normal Neck full ROM Chest inspection of chest normal Resp normal respiratory effort and no use of accessory muscles Auscultation: wheezes scattered wheezes and diminished lung sounds; Negative for rales or rhonchi Cardio regular rate, regular rhythm, S1 normal heart sound, S2 normal heart sound, no murmurs, no rub and no gallops GI soft to palpation and non-tender Inspection: anasarca present and abdominal distention no CVA tenderness Extremity General Extremity: edema; Negative for clubbing or cyanosis Skin no rashes or lesions noted Neuro CN's II-XII intact bilaterally, moves all extremities and no focal motor deficits Sensorium / Orientation: awake and alert Psych Mood & Affect: flat affect Charges/Coding Visit Charges Inpatient E&M: 72622 Subs Hosp L2
[2021-01-24] MEDS: Polyethylene Glycol 3350 17 GM PACKET PO (08:55)
[2021-01-24] MEDS: predniSONE 20 MG Tablet 40 MG PO (08:55)
[2021-01-24] MEDS: Ciprofloxacin 500 MG Tablet PO ×2 (08:55→22:42)
[2021-01-24] MEDS: Senna/Docusate Sodium 1 Tablet 2 TABLET PO (08:55)
[2021-01-24] MEDS: Pantoprazole Sodium 40 MG Tablet PO (08:55)
[2021-01-24] MEDS: Furosemide 40 MG/4 ML Vial IV (08:57)
--- NOTE | 2021-01-24 09:21 | CASEMGMT ---
Social Work SW spoke with pt Maxime and completed Medicaid Application. Application faxed to [facility]. Patient Financial Services updated. SW spoke with pt about possible need for SNF placement. states she can assist pt at home. SW informed her pt is currently needing Mod A x2. states she would have to talk to pt about SNF when she visits today. SW will continue to follow. SPARKLE Emery
[2021-01-24] MEDS: Nystatin Powder 15gm Bottle 1 APPLIC TOPICAL ×2 (11:02→22:46)
[2021-01-24] MEDS: Insulin Lispro 100 UNIT/ML INSULN.PEN SC ×3 (11:02→22:43)
[2021-01-24 11:50] LABS: Bedside Glucose 170 mg/dL (70-110)
--- NOTE | 2021-01-24 12:00 | CASEMGMT ---
Addendum entered by Veena Mei 01/24/21 13:15: Still have not heard back from [facility], attempted to reach again without success. Tory YUN CM Original Note: Attempted to reach [facility] to clarify pt oxygen order and they are to call this RN CM back. Tory YUN CM
[2021-01-24 12:49] LABS: Pathologist Review Reviewed
--- NOTE | 2021-01-24 14:24 | PN.HOSP_ITS ---
Subjective Subjective Doing well, no issues overnight, breathing well. Still has not had a bowel movement. Objective Data Objective Data Vital Signs: Vital Signs Temp Pulse Resp BP Pulse Ox 98.0 F 96 20 H 135/75 H 95 01/24/21 11:04 01/24/21 11:04 01/24/21 11:11 01/24/21 11:04 01/24/21 11:04 Oxygen Flow Rate (L/min) 4 Oxygen Delivery Method Nasal Cannula Weight: 260 lb 9.382 oz Body Mass Index (BMI) 43.7 Intake & Output: Intake and Output for Last 24 Hours 01/23/21 01/24/21 01/25/21 03:59 03:59 03:59 Intake Total 1642.5 / 1642.5 1120 / 1120 360 / 360 Output Total 2450 / 2450 3960 / 3960 1350 / 1350 Balance -807.5 / -807.5 -2840 / -2840 -990 / -990 Lab / Micro Data Result Diagrams: 01/24/21 05:38 01/24/21 05:38 Labs: Laboratory Results - last 24 hr 01/23/21 01/23/21 01/24/21 17:31 21:33 05:38 WBC 8.9 RBC 5.60 Hgb 15.8 Hct 51.9 MCV 92.7 MCH 28.2 MCHC 30.4 L RDW Std Deviation 57.2 H RDW Coeff of [place] 17.8 H Plt Count 43 L* MPV 10.5 Immature Gran % (Auto) 0.300 Neut % (Auto) 92.1 H Lymph % (Auto) 1.7 L [place] % (Auto) 5.8 Eos % (Auto) 0.0 Baso % (Auto) 0.1 Absolute Neuts (auto) 8.2 H Absolute Lymphs (auto) 0.15 L Nucleated RBC % 0 Diff Path Review Reviewed Platelet Estimate MKD DEC Sodium Potassium Chloride Carbon Dioxide Anion Gap BUN Creatinine Estim Creat Clear Calc Est GFR (MDRD) Af Amer Est GFR (MDRD) Non-Af BUN/Creatinine Ratio Glucose Calcium Total Bilirubin AST ALT Alkaline Phosphatase Total Protein Albumin Globulin Albumin/Globulin Ratio POC Glucose 396 H 114 H 01/24/21 01/24/21 01/24/21 05:38 06:15 11:01 WBC RBC Hgb Hct MCV MCH MCHC RDW Std Deviation RDW Coeff of [place] Plt Count MPV Immature Gran % (Auto) Neut % (Auto) Lymph % (Auto) [place] % (Auto) Eos % (Auto) Baso % (Auto) Absolute Neuts (auto) Absolute Lymphs (auto) Nucleated RBC % Diff Path Review Platelet Estimate Sodium 139 Potassium 4.3 Chloride 91 L Carbon Dioxide 44.0 H Anion Gap 4 L BUN 44 H Creatinine 0.95 Estim Creat Clear Calc 83.11 Est GFR (MDRD) Af Amer 106 Est GFR (MDRD) Non-Af 87 BUN/Creatinine Ratio 46.2 H Glucose 152 H Calcium 8.1 L Total Bilirubin 4.30 H AST 164 H ALT 786 H Alkaline Phosphatase 139 H Total Protein 5.7 L Albumin 2.7 L Globulin 3.0 Albumin/Globulin Ratio 0.9 POC Glucose 140 H 170 H Micro: Microbiology 01/18/21 09:30 Blood Culture (Wb) - Anticubital Right Blood Culture - Final No growth in 5 days. 01/18/21 09:25 Blood Culture (Wb) - Anticubital Left Blood Culture - Final No growth in 5 days. 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 01/18/21 12:30 Interface Orders SARS-CoV-2 Antigen (Rapid) - Final 01/18/21 Unknown Urine Catheter - Reyez Legionella Antigen - Final 01/18/21 Unknown Urine Catheter - Reyez Streptococcus pneumoniae Antigen (M - Final Rhythm Strip Rhythm Strip: Sinus Rhythm Rate: 90 Ectopy: None Physical Exam Const alert, oriented x3 and no apparent distress General Appearance: cooperative HEENT normocephalic and moist oral mucous membranes Eyes PERRL, EOMs intact bilaterally and conjunctivae normal Neck supple and no JVD Resp normal respiratory effort, no retractions and no use of accessory muscles Auscultation: wheezes expiratory wheezes and scattered wheezes and diminished lung sounds; Negative for crackles, rales or rhonchi Cardio regular rate, regular rhythm, S1 normal heart sound, S2 normal heart sound and no murmurs GI soft to palpation, non-tender and non-distended; Negative for hepatosplenomegaly Extremity Extremity Narrative: Anasarca General Extremity: edema bilateral lower extremity; Negative for clubbing or cyanosis Skin no rashes or lesions noted Neuro no focal motor deficits and no sensory deficits noted Psych affect normal Appearance: appropriate Assessment & Plan Assessment/Plan (1) Respiratory failure: QUALIFIERS: Chronicity: acute on chronic Respiratory failure complication: hypoxia and hypercapnia Qualified Code(s): J96.21 - Acute and chronic respiratory failure with hypoxia; J96.22 - Acute and chronic respiratory failure with hypercapnia (2) Acidosis, lactic: (3) Acute kidney injury: (4) Pulmonary hypertension: (5) Pneumonia: QUALIFIERS: Pneumonia type: due to Pseudomonas Laterality: bilateral Lung location: lower lobe of lung Qualified Code(s): J15.1 - Pneumonia due to Pseudomonas (6) Thrombocytopenia: PLAN: #Acute hypoxic and hypercapnic respiratory failure due to COPD exacerbation versus pulmonary hypertension * Admit to ICU. Patient emergently intubated in the ED. * Vent settings as per critical care. * Titrate oxygen to maintain saturation above 90% * IV Solu-Medrol 40 mg every 8 * Patient meets criteria for sepsis but does appear like all this is due to his hypoxia as patient was literally blue on admission. Lactic acid was 10 and this is also likely due to patient being blue. * Will however cover patient with empiric antibiotics and get blood cultures and sputum cultures. * consult critical care * order 2D echo; cycle troponins * diurese with IV lasix due to concerns about heart failure exacerbation * sedated with propofol and fentanul * 01/19/2021: Failed spontaneous breathing trial this morning, will continue with intubation and sedation, wean as able * 01/21/2021: Continue with weaning sedation more alert today's failed spontaneous breathing trial this morning. * 01/22/2021: Extubated this morning, tolerating BiPAP very well. Continues to improve with diuresis secondary to his anasarca and his pulmonary hypertension * 01/23/2021: Continue with Lasix twice daily, he does have room his renal fu nction to handle this. Continue with Solu-Medrol dosing 3 times daily and he was transitioned from Zosyn to Cipro for the pneumonia * 01/24/2021: Solu-Medrol transition to prednisone daily and his Lasix was decreased to daily dosing as well secondary to a rising bicarb #Pulmonary hypertension * kidney function is impaired, so will hold off on diuretics for now. * order 2D echo * monitor intake and output. Fluid restriction to 1500cc daily. * 01/22/2021: Echo demonstrates moderate pulmonary hypertension with a pressure of 51 mmHg. We will continue with twice daily diuresis given his anasarca * 01/23/2021: Continue with Lasix twice daily does have still continued anasarca with dependent edema in all extremities, creatinine today is 1.18 however his CO2 is 42 therefore he may need a break from diuresis at some point #Septic shock due to pseudomonal pneumonia/thrombocytopenia * Patient was tachycardic and tachypneic and also has elevated lactic acid. He therefore meets the criteria for septic shock per Lactic acid criteria * will start on broad spectrum antibiotics for now. * hold off on IVF due to concerns about heart failure * get blood cultures * 01/19/2021: Blood cultures are still pending, will continue with Zosyn * 01/23/2021: Transition Zosyn to Cipro. Thrombocytopenia could be reactive howev er will discontinue Lovenox * 01/24/2021: Continue with Cipro we will continue to monitor platelets #ERYN * Creatinine is 2.31; no baseline in the system * cant hydrate with IVF as patient may also be fluid overloaded, annd so is being diuresed * will trend Cr * 01/19/2021: Creatinine down to 1.69. * 01/21/2021: Creatinine down to 1.31, can give Lasix if necessary given his fluid status. * 01/22/2021: Creatinine is 1.16 * Resolved #Elevated BP * Blood pressure was 176/109 at time of arrival. Patient does not appear to be a known hypertensive. This may be due to his respiratory failure as well and increased work of breathing * IV hydralazine as needed. If blood pressure remains elevated, will consider starting blood pressure medications. * 01/19/2021: Blood pressure is stable DVT: SCDs secondary to thrombocytopenia Charges/Coding Visit Charges Inpatient E&M: 55592 Subs Hosp L2
--- NOTE | 2021-01-24 14:51 | CASEMGMT ---
Pt qualifies for palliative referral via [facility] palliative screening tool, Dr. Latham aware but declines referral at this time. Tory YUN CM
[2021-01-24 16:16] LABS: Bedside Glucose 219 mg/dL (70-110)
[2021-01-24 23:26] LABS: Bedside Glucose 190 mg/dL (70-110)
[2021-01-25] VITALS (21 sets, daily range): BP systolic 126–137; BP diastolic 78–84; PULSE 79–114; RESP 14–20; TEMP 36.6–36.9; O2SAT 4–97
[2021-01-25 06:46] LABS: Absolute Lymphocyte Count 0.82 X10^3/uL (0.83-4.51); Absolute Neutrophil Count 8.4 X10^3/uL (2.0-7.7); Eosinophil# 0.09 X10^3/uL; Eosinophils% 0.9 % (0-5); Hematocrit 50.2 % (40-54); Hemoglobin 15.3 g/dL (13.0-16.5); Lymphocyte # 0.82 X10^3/ul (0.83-4.51); Lymphocyte % 7.9 % (19-41); Mean Corp Hgb Conc 30.5 g/dL (32-36); Mean Corpuscular Hgb 28.8 pg (27.0-32.0); Mean Corpuscular Volume 94.4 fL (80-94); Monocyte# 1.05 X10^3/uL; Monocyte% 10.1 % (0-10); NRBC Flagged by Analyzer 0 % (0-5); Neutrophil # 8.44 X10^3/uL (2.7-7.7); Neutrophil % 80.7 % (47-70); POSITIVE COUNT YES; RBC Distribution Width CV 17.8 % (11.6-14.6); RBC Distribution Width SD 59.8 fl (35.1-43.9); Red Blood Count 5.32 M/mm3 (4.6-6.2); White Blood Count 10.4 K/mm3 (4.4-11.0)
[2021-01-25] MEDS: 0.9% Saline Lock 10 ML Syringe IV (06:58)
[2021-01-25 07:00] LABS: Bedside Glucose 107 mg/dL (70-110)
[2021-01-25 07:00] LABS: Differential Indicated SCAN CRITERIA MET; Platelet Count 49 K/mm3 (150-450)
[2021-01-25 07:11] LABS: ALB/GLOB Ratio 0.9 RATIO (0.9-2.4); AST(SGOT) 112 U/L (15-37); Alanine Aminotransfer ALT/SGPT 592 U/L (16-61); Albumin, Serum 2.6 g/dL (3.2-5.0); Alkaline Phosphatase 144 U/L (45-117); Anion Gap 4 (5-15); BUN 39 mg/dL (7-18); BUN/Creat Ratio 49.6 RATIO (10-20); Calcium,Total 8.2 mg/dL (8.5-10.1); Chloride 93 mmol/L (98-107); Creatinine, Serum 0.79 mg/dL (0.70-1.30); EST Glomerular Filtration Rate 109 mL/min (>60); Est Glom Filt Rate - Afr Amer 132 mL/min (>60); Estimated Creatinine Clearance 99.94 ml/min; Glucose 101 mg/dL (74-106); Potassium 3.6 mmol/L (3.5-5.1); Protein, Total 5.6 g/dL (6.4-8.2); Sodium Level 141 mmol/L (136-145)
[2021-01-25 07:16] LABS: Differential Comment SCANNED; Platelet Estimate MKD DEC (ADEQ)
[2021-01-25] MEDS: Ipratropium/Albuterol Sulfate 3 ML AMPUL.NEB INHALATION ×4 (07:30→19:30)
--- NOTE | 2021-01-25 07:30 | PN.CC_ITS ---
Assessment & Plan Assessment/Plan (1) Respiratory failure: QUALIFIERS: Chronicity: acute on chronic Respiratory failure complication: hypoxia and hypercapnia Qualified Code(s): J96.21 - Acute and chronic respiratory failure with hypoxia; J96.22 - Acute and chronic respiratory failure with hypercapnia PLAN: RECOMMENDATIONS: 1. Continue fluid restriction and diuresis as tolerated 2. Wean FiO2 to keep saturations between 90 and 94%. 3. Continue antibiotics to complete a 10-day course 4. Continue scheduled bronchodilators. Wean steroids over the next 12 to 14 days 5. Continue aggressive bowel regimen. Consider suppository versus enema 6. Out of bed as tolerated. Walking oximetry prior to discharge 7. Continue appropriate ICU prophylaxis. IMPRESSIONS: 1. Acute on chronic combined respiratory failure secondary to pseudomonal pneumonia Concern for multifactorial etiology, with underlying pulmonary infectious process leading to COPD exacerbation along with possible decompensated heart failure contributing. The patient did require intubation in the emergency department after failing to respond to noninvasive positive pressure ventilatory support. Patient successfully extubated on 01/22/2021. Patient has tolerated BiPAP with sleep throughout hospital stay. Patient will require additional work-up as an outpatient to see if this can be continued. Continue scheduled bronchodilator therapy and wean steroids over the next 12 to 14 days. Continue diuresis as tolerated by hemodynamics and renal function. 2. Chronic tobacco dependency/history of alcohol dependency/thrombocytopenia Continues supportive measures as noted above. We will need to confirm with the patient's family his current use of tobacco and alcohol. In the interim, bronchodilators will be continued. Patient does have significant decrease in platelets, but no clinical bleeding has been noted. No transfusion at this time. Heparin products have been discontinued over 48 hours ago. Patient transition from Zosyn therapy and platelets are slightly improved today. Patient does have an elevated bilirubin, but this appears to be improving. Outpatient work-up for liver function may be appropriate. 3. Acute versus chronic kidney disease Resolved. Likely prerenal in etiology and related to acute presentation. Continue to monitor urine output for now. No current indication for renal replacement therapy. An element of anasarca likely secondary to low albumin. 4. Acute liver injury Unclear etiology. GGT and lipase were normal. Liver ultrasound revealed no overt findings concerning for cholecystitis. Liver function is slowly improving without intervention. Continue to monitor intermittently. Subjective Subjective Patient sleeping on BiPAP during my evaluation. No acute issues were reported overnight. Nursing is not reporting any bleeding issues. Patient was on 3 to 4 L nasal cannula oxygen prior to using BiPAP with sleep. Objective Data Objective Data Vital Signs: Vital Signs Temp Pulse Resp BP Pulse Ox 36.6 C 93 16 135/84 H 96 01/25/21 04:03 01/25/21 04:03 01/25/21 04:03 01/25/21 04:03 01/25/21 04:03 Oxygen Flow Rate (L/min) 4 Oxygen Delivery Method Bi-pap Weight: 118.7 kg Body Mass Index (BMI) 43.7 Intake & Output: Intake and Output for Last 24 Hours 01/23/21 01/24/21 01/25/21 23:59 23:59 23:59 Intake Total 1430 / 1430 720 / 1120 650 / 650 Output Total 4310 / 4310 1950 / 2600 1250 / 1250 Balance -2880 / -2880 -1230 / -1480 -600 / -600 Lab / Micro Data Result Diagrams: 01/25/21 06:08 01/25/21 06:08 Labs: Laboratory Results - last 24 hr 01/24/21 01/24/21 01/24/21 05:38 11:01 16:02 WBC RBC Hgb Hct MCV MCH MCHC RDW Std Deviation RDW Coeff of [place] Plt Count MPV Immature Gran % (Auto) Neut % (Auto) Lymph % (Auto) [place] % (Auto) Eos % (Auto) Baso % (Auto) Absolute Neuts (auto) Absolute Lymphs (auto) Nucleated RBC % Differential Comment Diff Path Review Reviewed Platelet Estimate Sodium Potassium Chloride Carbon Dioxide Anion Gap BUN Creatinine Estim Creat Clear Calc Est GFR (MDRD) Af Amer Est GFR (MDRD) Non-Af BUN/Creatinine Ratio Glucose Calcium Total Bilirubin AST ALT Alkaline Phosphatase Total Protein Albumin Globulin Albumin/Globulin Ratio POC Glucose 170 H 219 H 01/24/21 01/25/21 01/25/21 22:41 06:08 06:08 WBC 10.4 RBC 5.32 Hgb 15.3 Hct 50.2 MCV 94.4 H MCH 28.8 MCHC 30.5 L RDW Std Deviation 59.8 H RDW Coeff of [place] 17.8 H Plt Count 49 L* MPV 11.0 Immature Gran % (Auto) 0.400 Neut % (Auto) 80.7 H Lymph % (Auto) 7.9 L [place] % (Auto) 10.1 H Eos % (Auto) 0.9 Baso % (Auto) 0.0 Absolute Neuts (auto) 8.4 H Absolute Lymphs (auto) 0.82 L Nucleated RBC % 0 Differential Comment SCANNED Diff Path Review May foll Platelet Estimate MKD DEC Sodium 141 Potassium 3.6 Chloride 93 L Carbon Dioxide 44.0 H Anion Gap 4 L BUN 39 H Creatinine 0.79 Estim Creat Clear Calc 99.94 Est GFR (MDRD) Af Amer 132 Est GFR (MDRD) Non-Af 109 BUN/Creatinine Ratio 49.6 H Glucose 101 Calcium 8.2 L Total Bilirubin 3.20 H AST 112 H ALT 592 H Alkaline Phosphatase 144 H Total Protein 5.6 L Albumin 2.6 L Globulin 3.0 Albumin/Globulin Ratio 0.9 POC Glucose 190 H 01/25/21 06:56 WBC RBC Hgb Hct MCV MCH MCHC RDW Std Deviation RDW Coeff of [place] Plt Count MPV Immature Gran % (Auto) Neut % (Auto) Lymph % (Auto) [place] % (Auto) Eos % (Auto) Baso % (Auto) Absolute Neuts (auto) Absolute Lymphs (auto) Nucleated RBC % Differential Comment Diff Path Review Platelet Estimate Sodium Potassium Chloride Carbon Dioxide Anion Gap BUN Creatinine Estim Creat Clear Calc Est GFR (MDRD) Af Amer Est GFR (MDRD) Non-Af BUN/Creatinine Ratio Glucose Calcium Total Bilirubin AST ALT Alkaline Phosphatase Total Protein Albumin Globulin Albumin/Globulin Ratio POC Glucose 107 Micro: Microbiology 01/18/21 09:30 Blood Culture (Wb) - Anticubital Right Blood Culture - Final No growth in 5 days. 01/18/21 09:25 Blood Culture (Wb) - Anticubital Left Blood Culture - Final No growth in 5 days. 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 No stridor noted. Nutritional Appearance: morbidly obese HEENT normocephalic and head/scalp atraumatic Eyes PERRL, EOMs intact bilaterally and conjunctivae normal Neck full ROM Chest inspection of chest normal Resp normal respiratory effort and no use of accessory muscles Auscultation: wheezes scattered wheezes and diminished lung sounds; Negative for rales or rhonchi Cardio regular rate, regular rhythm, S1 normal heart sound, S2 normal heart sound, no murmurs, no rub and no gallops GI soft to palpation and non-tender Inspection: anasarca present and abdominal distention no CVA tenderness Extremity General Extremity: edema; Negative for clubbing or cyanosis Skin no rashes or lesions noted Neuro CN's II-XII intact bilaterally, moves all extremities and no focal motor deficits Sensorium / Orientation: awake and alert Psych Mood & Affect: flat affect Charges/Coding Visit Charges Inpatient E&M: 98451 Subs Hosp L2
[2021-01-25] MEDS: predniSONE 20 MG Tablet 40 MG PO (09:42)
[2021-01-25] MEDS: Pantoprazole Sodium 40 MG Tablet PO (09:43)
[2021-01-25] MEDS: Senna/Docusate Sodium 1 Tablet 2 TABLET PO (09:43)
[2021-01-25] MEDS: Furosemide 40 MG/4 ML Vial IV (09:43)
[2021-01-25] MEDS: Ciprofloxacin 500 MG Tablet PO ×2 (09:43→21:15)
[2021-01-25] MEDS: Nystatin Powder 15gm Bottle 1 APPLIC TOPICAL ×2 (09:44→21:15)
[2021-01-25 10:41] LABS: Pathologist Review Reviewed
--- NOTE | 2021-01-25 11:09 | CASEMGMT ---
Per Nora, pt's home oxygen order is for 2L continous. SStbarrie YUN CM
--- NOTE | 2021-01-25 11:39 | PN.HOSP_ITS ---
Subjective Subjective Doing well, feels much better today. He is ambulatory and has been able to walk without the walker. Objective Data Objective Data Vital Signs: Vital Signs Temp Pulse Resp BP Pulse Ox 98.2 F 106 H 18 136/78 H 78 01/25/21 09:39 01/25/21 10:39 01/25/21 09:39 01/25/21 09:39 01/25/21 10:27 Oxygen Flow Rate (L/min) [ 92 AMBULATING with Oxygen #3] Oxygen Flow Rate (L/min) [ 87 AMBULATING with Oxygen #2] Oxygen Flow Rate (L/min) [ 82 AMBULATING with Oxygen #1] Oxygen Flow Rate (L/min) [At 4 REST with Oxygen] Oxygen Flow Rate (L/min) [At 0 REST on Room Air] Oxygen Flow Rate (L/min) 4 Oxygen Delivery Method Nasal Cannula Weight: 261 lb 11.019 oz Body Mass Index (BMI) 43.7 Intake & Output: Intake and Output for Last 24 Hours 01/24/21 01/25/21 01/26/21 03:59 03:59 03:59 Intake Total 1120 / 1120 1120 / 1120 250 / 250 Output Total 3960 / 3960 2600 / 2600 600 / 600 Balance -2840 / -2840 -1480 / -1480 -350 / -350 Lab / Micro Data Result Diagrams: 01/25/21 06:08 01/25/21 06:08 Labs: Laboratory Results - last 24 hr 01/24/21 01/24/21 01/24/21 05:38 11:01 16:02 WBC RBC Hgb Hct MCV MCH MCHC RDW Std Deviation RDW Coeff of [place] Plt Count MPV Immature Gran % (Auto) Neut % (Auto) Lymph % (Auto) [place] % (Auto) Eos % (Auto) Baso % (Auto) Absolute Neuts (auto) Absolute Lymphs (auto) Nucleated RBC % Differential Comment Diff Path Review Reviewed Platelet Estimate Sodium Potassium Chloride Carbon Dioxide Anion Gap BUN Creatinine Estim Creat Clear Calc Est GFR (MDRD) Af Amer Est GFR (MDRD) Non-Af BUN/Creatinine Ratio Glucose Calcium Total Bilirubin AST ALT Alkaline Phosphatase Total Protein Albumin Globulin Albumin/Globulin Ratio POC Glucose 170 H 219 H 01/24/21 01/25/21 01/25/21 22:41 06:08 06:08 WBC 10.4 RBC 5.32 Hgb 15.3 Hct 50.2 MCV 94.4 H MCH 28.8 MCHC 30.5 L RDW Std Deviation 59.8 H RDW Coeff of Etelvina 17.8 H Plt Count 49 L* MPV 11.0 Immature Gran % (Auto) 0.400 Neut % (Auto) 80.7 H Lymph % (Auto) 7.9 L [place] % (Auto) 10.1 H Eos % (Auto) 0.9 Baso % (Auto) 0.0 Absolute Neuts (auto) 8.4 H Absolute Lymphs (auto) 0.82 L Nucleated RBC % 0 Differential Comment SCANNED Diff Path Review Reviewed Platelet Estimate MKD DEC Sodium 141 Potassium 3.6 Chloride 93 L Carbon Dioxide 44.0 H Anion Gap 4 L BUN 39 H Creatinine 0.79 Estim Creat Clear Calc 99.94 Est GFR (MDRD) Af Amer 132 Est GFR (MDRD) Non-Af 109 BUN/Creatinine Ratio 49.6 H Glucose 101 Calcium 8.2 L Total Bilirubin 3.20 H AST 112 H ALT 592 H Alkaline Phosphatase 144 H Total Protein 5.6 L Albumin 2.6 L Globulin 3.0 Albumin/Globulin Ratio 0.9 POC Glucose 190 H 01/25/21 06:56 WBC RBC Hgb Hct MCV MCH MCHC RDW Std Deviation RDW Coeff of [place] Plt Count MPV Immature Gran % (Auto) Neut % (Auto) Lymph % (Auto) [place] % (Auto) Eos % (Auto) Baso % (Auto) Absolute Neuts (auto) Absolute Lymphs (auto) Nucleated RBC % Differential Comment Diff Path Review Platelet Estimate Sodium Potassium Chloride Carbon Dioxide Anion Gap BUN Creatinine Estim Creat Clear Calc Est GFR (MDRD) Af Amer Est GFR (MDRD) Non-Af BUN/Creatinine Ratio Glucose Calcium Total Bilirubin AST ALT Alkaline Phosphatase Total Protein Albumin Globulin Albumin/Globulin Ratio POC Glucose 107 Micro: Microbiology 01/18/21 09:30 Blood Culture (Wb) - Anticubital Right Blood Culture - Final No growth in 5 days. 01/18/21 09:25 Blood Culture (Wb) - Anticubital Left Blood Culture - Final No growth in 5 days. 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 01/18/21 12:30 Interface Orders SARS-CoV-2 Antigen (Rapid) - Final 01/18/21 Unknown Urine Catheter - Reyez Legionella Antigen - Final 01/18/21 Unknown Urine Catheter - Reyez Streptococcus pneumoniae Antigen (M - Final Rhythm Strip Rhythm Strip: Sinus Rhythm Rate: 90 Ectopy: None Physical Exam Const alert, oriented x3 and no apparent distress General Appearance: cooperative HEENT normocephalic and moist oral mucous membranes Eyes PERRL, EOMs intact bilaterally and conjunctivae normal Neck supple and no JVD Resp normal respiratory effort, no retractions and no use of accessory muscles Auscultation: wheezes expiratory wheezes and scattered wheezes and diminished lung sounds; Negative for crackles, rales or rhonchi Cardio regular rate, regular rhythm, S1 normal heart sound, S2 normal heart sound and no murmurs GI soft to palpation, non-tender and non-distended; Negative for hepatosplenomegaly Extremity Extremity Narrative: Anasarca General Extremity: Negative for clubbing or cyanosis Skin no rashes or lesions noted Neuro no focal motor deficits and no sensory deficits noted Psych affect normal Appearance: appropriate Assessment & Plan Assessment/Plan (1) Respiratory failure: QUALIFIERS: Chronicity: acute on chronic Respiratory failure complication: hypoxia and hypercapnia Qualified Code(s): J96.21 - Acute and chronic respiratory failure with hypoxia; J96.22 - Acute and chronic respiratory failure with hypercapnia (2) Acidosis, lactic: (3) Acute kidney injury: (4) Pulmonary hypertension: (5) Pneumonia: QUALIFIERS: Pneumonia type: due to Pseudomonas Laterality: bilateral Lung location: lower lobe of lung Qualified Code(s): J15.1 - Pneumonia due to Pseudomonas (6) Thrombocytopenia: PLAN: #Acute hypoxic and hypercapnic respiratory failure due to COPD exacerbation versus pulmonary hypertension * Admit to ICU. Patient emergently intubated in the ED. * Vent settings as per critical care. * Titrate oxygen to maintain saturation above 90% * IV Solu-Medrol 40 mg every 8 * Patient meets criteria for sepsis but does appear like all this is due to his hypoxia as patient was literally blue on admission. Lactic acid was 10 and t his is also likely due to patient being blue. * Will however cover patient with empiric antibiotics and get blood cultures and sputum cultures. * consult critical care * order 2D echo; cycle troponins * diurese with IV lasix due to concerns about heart failure exacerbation * sedated with propofol and fentanul * 01/19/2021: Failed spontaneous breathing trial this morning, will continue with intubation and sedation, wean as able * 01/21/2021: Continue with weaning sedation more alert today's failed spontaneous breathing trial this morning. * 01/22/2021: Extubated this morning, tolerating BiPAP very well. Continues to improve with diuresis secondary to his anasarca and his pulmonary hypertension * 01/23/2021: Continue with Lasix twice daily, he does have room his renal function to handle this. Continue with Solu-Medrol dosing 3 times daily and he was transitioned from Zosyn to Cipro for the pneumonia * 01/24/2021: Solu-Medrol transition to prednisone daily and his Lasix was decreased to daily dosing as well secondary to a rising bicarb * 01/25/2021: Ambulated in the hallway needed 6 L with ambulation to maintain his oxygen saturations. We will continue with diuresis and continue to reevaluate discharge planning. Will complete Cipro on 01/27/2021 #Pulmonary hypertension * kidney function is impaired, so will hold off on diuretics for now. * order 2D echo * monitor intake and output. Fluid restriction to 1500cc daily. * 01/22/2021: Echo demonstrates moderate pulmonary hypertension with a pressure of 51 mmHg. We will continue with twice daily diuresis given his anasarca * 01/23/2021: Continue with Lasix twice daily does have still continued anasarca with dependent edema in all extremities, creatinine today is 1.18 however his CO2 is 42 therefore he may need a break from diuresis at some point * 01/25/2021: Decrease Lasix to daily dosing secondary to rising bicarb #Septic shock due to pseudomonal pneumonia/thrombocytopenia * Patient was tachycardic and tachypneic and also has elevated lactic acid. He therefore meets the criteria for septic shock per Lactic acid criteria * will start on broad spectrum antibiotics for now. * hold off on IVF due to concerns about heart failure * get blood cultures * 01/19/2021: Blood cultures are still pending, will continue with Zosyn * 01/23/2021: Transition Zosyn to Cipro. Thrombocytopenia could be reactive however will discontinue Lovenox * 01/24/2021: Continue with Cipro we will continue to monitor platelets * 01/25/2021: Complete Cipro on 01/27/2021 #ERYN * Creatinine is 2.31; no baseline in the system * cant hydrate with IVF as patient may also be fluid overloaded, annd so is being diuresed * will trend Cr * 01/19/2021: Creatinine down to 1.69. * 01/21/2021: Creatinine down to 1.31, can give Lasix if necessary given his fluid status. * 01/22/2021: Creatinine is 1.16 * Resolved #Elevated BP * Blood pressure was 176/109 at time of arrival. Patient does not appear to be a known hypertensive. This may be due to his respiratory failure as well and increased work of breathing * IV hydralazine as needed. If blood pressure remains elevated, will consider starting blood pressure medications. * 01/19/2021: Blood pressure is stable DVT: SCDs secondary to thrombocytopenia Charges/Coding Visit Charges Inpatient E&M: 62532 Subs Hosp L2
--- NOTE | 2021-01-25 12:02 | CASEMGMT ---
Per therapy, pt does not need any further therapy at discharge. Pt to be tested on 2L continuous oxygen at discharge to see if he needs increased home oxygen. Green sheet left on chart for same. Tory YUN CM
[2021-01-25] MEDS: Insulin Lispro 100 UNIT/ML INSULN.PEN SC ×3 (12:03→21:16)
[2021-01-25 12:16] LABS: Bedside Glucose 204 mg/dL (70-110)
[2021-01-25 17:10] LABS: Bedside Glucose 424 mg/dL (70-110)
--- NOTE | 2021-01-25 19:32 | NURSING ---
While this RN was at the patients bedside doing his VS and assessment, patient proceeded to pull out a large opened bag of iced animal crackers. Patient took one cookie to eat and gave the rest of the bag to this RN. RN placed bag on shelf out of patients reach. Patient also had a regular coke on his bedside during change of shift.
--- NOTE | 2021-01-25 19:59 | NURSING ---
Handouts about COPD and DM given to patient. Per patient he cannot read or write. This RN started some verbal education with patient. Consult placed for DM education with nutrition. Encouraged patient to have his at bedside for education.
[2021-01-25 21:40] LABS: Bedside Glucose 212 mg/dL (70-110)
[2021-01-26] VITALS (9 sets, daily range): BP systolic 106–126; BP diastolic 76–81; PULSE 86–114; RESP 14–20; TEMP 36.2–36.7; O2SAT 83–97
[2021-01-26 06:11] LABS: Bedside Glucose 72 mg/dL (70-110)
[2021-01-26 07:25] LABS: Absolute Lymphocyte Count 0.94 X10^3/uL (0.83-4.51); Basophil# 0.02 X10^3/uL; Basophil% 0.2 % (0-1); Eosinophil# 0.08 X10^3/uL; Eosinophils% 0.7 % (0-5); Hematocrit 53.1 % (40-54); Hemoglobin 15.6 g/dL (13.0-16.5); Lymphocyte # 0.94 X10^3/ul (0.83-4.51); Lymphocyte % 7.7 % (19-41); Mean Corp Hgb Conc 29.4 g/dL (32-36); Mean Corpuscular Hgb 28.4 pg (27.0-32.0); Mean Corpuscular Volume 96.5 fL (80-94); Mean Platelet Vol. 9.6 fl (6.2-12.0); Monocyte# 1.06 X10^3/uL; Monocyte% 8.7 % (0-10); NRBC Flagged by Analyzer 0 % (0-5); Neutrophil % 82.1 % (47-70); POSITIVE COUNT YES; Platelet Count 56 K/mm3 (150-450); RBC Distribution Width CV 17.6 % (11.6-14.6); RBC Distribution Width SD 61.4 fl (35.1-43.9); White Blood Count 12.2 K/mm3 (4.4-11.0)
[2021-01-26] MEDS: Ipratropium/Albuterol Sulfate 3 ML AMPUL.NEB INHALATION (07:50)
[2021-01-26 07:54] LABS: BUN 30 mg/dL (7-18); BUN/Creat Ratio 42.4 RATIO (10-20); Calcium,Total 8.4 mg/dL (8.5-10.1); Carbon Dioxide > 45.0 mmol/L (21.0-32.0); Chloride 94 mmol/L (98-107); Creatinine, Serum 0.71 mg/dL (0.70-1.30); EST Glomerular Filtration Rate 123 mL/min (>60); Est Glom Filt Rate - Afr Amer 149 mL/min (>60); Glucose 83 mg/dL (74-106); Potassium 3.7 mmol/L (3.5-5.1); Sodium Level 141 mmol/L (136-145)
--- NOTE | 2021-01-26 08:17 | PN.CC_ITS ---
Assessment & Plan Assessment/Plan (1) Respiratory failure: QUALIFIERS: Chronicity: acute on chronic Respiratory failure complication: hypoxia and hypercapnia Qualified Code(s): J96.21 - Acute and chronic respiratory failure with hypoxia; J96.22 - Acute and chronic respiratory failure with hypercapnia PLAN: RECOMMENDATIONS: 1. Continue fluid restriction and diuresis as tolerated 2. Wean FiO2 to keep saturations between 90 and 94%. 3. Continue antibiotics to complete a 10-day course 4. Continue scheduled bronchodilators. Wean steroids over the next 12 to 14 days 5. Continue aggressive bowel regimen. Consider suppository versus enema 6. Would prefer additional days of diuretics, but patient demanding to go home. Will need a 10 L concentrator 7. Follow-up in pulmonary office in 2 weeks. Educated on proper use of supplemental oxygen IMPRESSIONS: 1. Acute on chronic combined respiratory failure secondary to pseudomonal pneumonia Concern for multifactorial etiology, with underlying pulmonary infectious process leading to COPD exacerbation along with possible decompensated heart failure contributing. The patient did require intubation in the emergency department after failing to respond to noninvasive positive pressure ventilatory support. Patient successfully extubated on 01/22/2021. Patient has tolerated BiPAP with sleep throughout hospital stay. Patient will require additional w ork-up as an outpatient to see if this can be continued. Continue scheduled bronchodilator therapy and wean steroids over the next 12 to 14 days. Continue diuresis as tolerated by hemodynamics and renal function. Patient should follow-up in our office in 2 weeks for evaluation. 2. Chronic tobacco dependency/history of alcohol dependency/thrombocytopenia Continues supportive measures as noted above. We will need to confirm with the patient's family his current use of tobacco and alcohol. In the interim, bronchodilators will be continued. Patient does have significant decrease in platelets, but no clinical bleeding has been noted. No transfusion at this time. Heparin products have been discontinued over 48 hours ago. Patient transition from Zosyn therapy and platelets are slightly improved today. Patient does have an elevated bilirubin, but this appears to be improving. Outpatient work-up for liver function may be appropriate. Platelets appear to be improving off Zosyn therapy. 3. Acute versus chronic kidney disease Resolved. Likely prerenal in etiology and related to acute presentation. Continue to monitor urine output for now. No current indication for renal replacement therapy. An element of anasarca likely secondary to low albumin. 4. Acute liver injury Unclear etiology. GGT and lipase were normal. Liver ultrasound revealed no overt findings concerning for cholecystitis. Liver function is slowly improving without intervention. Continue to monitor intermittently. Patient did have significant bowel movements over the last 2 days Subjective Subjective Patient did well overnight. No acute issues were reported. Patient was able to tolerate BiPAP with sleep and 4 L nasal cannula during the day. Patient stating that he is going home [address] or another. Patient did require up to 8 L to ambulate to the bathroom. Patient states that this is not a problem as his home was very small and I will just take it easy. Patient understands that home concentrators do not reliably provide more than 6 L/min typically. Objective Data Objective Data Vital Signs: Vital Signs Temp Pulse Resp BP Pulse Ox 36.2 C L 97 18 106/76 83 01/26/21 08:04 01/26/21 08:04 01/26/21 08:04 01/26/21 08:04 01/26/21 08:10 Oxygen Flow Rate (L/min) [ 92 AMBULATING with Oxygen #3] Oxygen Flow Rate (L/min) [ 8 AMBULATING with Oxygen #2] Oxygen Flow Rate (L/min) [ 4 AMBULATING with Oxygen #1] Oxygen Flow Rate (L/min) [At 4 REST with Oxygen] Oxygen Flow Rate (L/min) [At 0 REST on Room Air] Oxygen Flow Rate (L/min) 4 Oxygen Delivery Method Nasal Cannula Weight: 118.7 kg Body Mass Index (BMI) 43.7 Intake & Output: Intake and Output for Last 24 Hours 01/24/21 01/25/21 01/26/21 23:59 23:59 23:59 Intake Total 720 / 1120 2210 / 2210 30 / 30 Output Total 1950 / 2600 4350 / 4350 275 / 275 Balance -1230 / -1480 -2140 / -2140 -245 / -245 Lab / Micro Data Result Diagrams: 01/26/21 07:13 01/26/21 07:13 Labs: Laboratory Results - last 24 hr 01/25/21 01/25/21 01/25/21 06:08 12:02 16:51 WBC RBC Hgb Hct MCV MCH MCHC RDW Std Deviation RDW Coeff of [place] Plt Count MPV Immature Gran % (Auto) Neut % (Auto) Lymph % (Auto) [place] % (Auto) Eos % (Auto) Baso % (Auto) Absolute Neuts (auto) Absolute Lymphs (auto) Nucleated RBC % Diff Path Review Reviewed Sodium Potassium Chloride Carbon Dioxide Anion Gap BUN Creatinine Estim Creat Clear Calc Est GFR (MDRD) Af Amer Est GFR (MDRD) Non-Af BUN/Creatinine Ratio Glucose Calcium POC Glucose 204 H 424 H 01/25/21 01/26/21 01/26/21 21:09 06:02 07:13 WBC 12.2 H RBC 5.50 Hgb 15.6 Hct 53.1 MCV 96.5 H MCH 28.4 MCHC 29.4 L RDW Std Deviation 61.4 H RDW Coeff of [place]elvina 17.6 H Plt Count 56 L MPV 9.6 Immature Gran % (Auto) 0.600 Neut % (Auto) 82.1 H Lymph % (Auto) 7.7 L [place] % (Auto) 8.7 Eos % (Auto) 0.7 Baso % (Auto) 0.2 Absolute Neuts (auto) 10.0 H Absolute Lymphs (auto) 0.94 Nucleated RBC % 0 Diff Path Review Sodium Potassium Chloride Carbon Dioxide Anion Gap BUN Creatinine Estim Creat Clear Calc Est GFR (MDRD) Af Amer Est GFR (MDRD) Non-Af BUN/Creatinine Ratio Glucose Calcium POC Glucose 212 H 72 01/26/21 07:13 WBC RBC Hgb Hct MCV MCH MCHC RDW Std Deviation RDW Coeff of [place] Plt Count MPV Immature Gran % (Auto) Neut % (Auto) Lymph % (Auto) [place] % (Auto) Eos % (Auto) Baso % (Auto) Absolute Neuts (auto) Absolute Lymphs (auto) Nucleated RBC % Diff Path Review Sodium 141 Potassium 3.7 Chloride 94 L Carbon Dioxide > 45.0 H* Anion Gap TNP BUN 30 H Creatinine 0.71 Estim Creat Clear Calc 111.20 Est GFR (MDRD) Af Amer 149 Est GFR (MDRD) Non-Af 123 BUN/Creatinine Ratio 42.4 H Glucose 83 Calcium 8.4 L POC Glucose Micro: Microbiology 01/18/21 09:30 Blood Culture (Wb) - Anticubital Right Blood Culture - Final No growth in 5 days. 01/18/21 09:25 Blood Culture (Wb) - Anticubital Left Blood Culture - Final No growth in 5 days. 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 Still with lower extremity edema. No stridor noted. Nutritional Appearance: morbidly obese HEENT normocephalic and head/scalp atraumatic Eyes PERRL, EOMs intact bilaterally and conjunctivae normal Neck full ROM Chest inspection of chest normal Resp normal respiratory effort and no use of accessory muscles Auscultation: wheezes scattered wheezes and diminished lung sounds; Negative for rales or rhonchi Cardio regular rate, regular rhythm, S1 normal heart sound, S2 normal heart sound, no murmurs, no rub and no gallops GI soft to palpation and non-tender Inspection: anasarca present and abdominal distention no CVA tenderness Extremity General Extremity: edema; Negative for clubbing or cyanosis Skin no rashes or lesions noted Neuro CN's II-XII intact bilaterally, moves all extremities and no focal motor deficits Sensorium / Orientation: awake and alert Psych Mood & Affect: flat affect Charges/Coding Visit Charges Inpatient E&M: 26714 Subs Hosp L2
[2021-01-26] MEDS: Ciprofloxacin 500 MG Tablet PO (08:34)
[2021-01-26] MEDS: Pantoprazole Sodium 40 MG Tablet PO (08:34)
[2021-01-26] MEDS: predniSONE 20 MG Tablet 40 MG PO (08:34)
[2021-01-26] MEDS: Furosemide 40 MG/4 ML Vial IV (08:34)
[2021-01-26] MEDS: Nystatin Powder 15gm Bottle 1 APPLIC TOPICAL (08:37)
[2021-01-26] MEDS: Senna/Docusate Sodium 1 Tablet 2 TABLET PO (08:37)
--- NOTE | 2021-01-26 09:07 | PCM.DC ---
Discharge Instructions Diet Discharge Diet: 1800 Calorie Control Diet and 8 Cup Fluid Restriction Activity Discharge Activity: Return to Normal Activity Dressing / Incision Call your doctor if you observe: Fever of 101 or Higher, Shortness of breath, Dizziness, Swelling in the ankles, Chest pain and Increased palpitations (irregular heartbeat) Follow Up Care Test Results: Test results from this visit will be discussed in further detail at your follow-up appointment, if applicable. Discharge Plan Admission Admit Date/Time: 01/18/21 10:49 Attending Provider: Porfirio Latham Primary Care Provider: Mariia Joe Consulting Providers: Curly Bell ; Twan Leyva ; Beverley Espinosa [employer] Instructions Patient Instructions: COPD: Wheezing and Chest Tightness, COPD: Using Inhalers, Pulmonary Hypertension Additional Instructions / Restrictions: Follow-up with your primary care physician to obtain outpatient labs monitor renal functions and electrolytes secondary to being on Lasix for your pulmonary hypertension. Discharge Orders/Prescriptions Prescriptions: New ciprofloxacin HCl 500 mg Tablet 500 mg PO Q12 Qty: 4 RF: 0 furosemide [Lasix] 40 mg tablet 40 mg PO DAILY Qty: 30 RF: 0 prednisone 20 mg tablet 40 mg PO DAILY Qty: 14 RF: 0 Continued albuterol sulfate 2.5 MG/3 ML solution for nebulization 2.5 mg INHALATION BID RF: 0 albuterol sulfate 1 INHALER inhaler 1 - 2 puff INHALATION Q4H PRN PRN (Reason: Sob &/Or Wheezing) RF: 0 Referrals / Follow Up: Curly Bell MD [STAFF PHYSICIAN] - Within 2 Weeks Mariia Joe MD [Primary Care Provider] - In 1 Week Disposition Disposition (needs filled in before D/C Order can be placed): Home, Self Care
--- NOTE | 2021-01-26 09:21 | PCM.DC.SUM ---
Providers Date of Admission: 01/18/21 Primary Care Physician: Dr. Mariia Joe MD Consultations 01/18/21 19:31 Consult: [employer] / Pulmonary Medicine Routine Consulting Provider: Pulmonary Medicine armaan Edouard Reason for Consult: acute hypoxic respiratory failure EMERGENT Consult: No MD Notified: Yes Date Notified: 01/18/21 Time Notified: 10:48 Method of Notification: informed by ED doctor Reason For Visit: ACUTE HYPOXIC RESPIRATORY FAILURE DUE TO COPD Diagnosis Discharge Diagnosis (1) Respiratory failure: Status: Acute Code(s): J96.90 - Respiratory failure, unspecified, unspecified whether with hypoxia or hypercapnia Qualifiers: Chronicity: acute on chronic Respiratory failure complication: hypoxia and hypercapnia Qualified Code(s): J96.21 - Acute and chronic respiratory failure with hypoxia; J96.22 - Acute and chronic respiratory failure with hypercapnia Medications at Discharge Home Medications albuterol sulfate 1 - 2 puff INHALATION Q4H PRN PRN 01/12/18 albuterol sulfate 2.5 mg INHALATION BID 01/12/18 ciprofloxacin HCl 500 mg PO Q12 #4 tab 01/26/21 furosemide [Lasix] 40 mg PO DAILY #30 tab 01/26/21 prednisone 40 mg PO DAILY #14 tab 01/26/21 Hospital Course Operations None Procedures 2-D Echocardiogram and Intubation Summary of Care Provided Minutes Spent on Discharge: 45 Hospital Course: Per HPI: NOELLE SHINE, is a 55 M with a PMH as outlined who was admitted via the ED on 01/18/2021 with a complaint of shortness of breath which has been ongoing for about 2 weeks. He has also been blue in color for the last day or 2. He had gone to [facility] ~ 1 week ago but refused admission and left. He had no associated fevver or chills, and had a chronic cough. REview of systems was otherwise negative. Vitals in the ED showed temp of 96F, NE of 101 and RR of 23 and BP was 134/23. Stat ABG after he was placed on BIPAP read as pH of 7.17 with PCO2 of 72 and PO2 of 139. Patient was not really responding to BiPAP and remained very blue and had increased work of breathing so he was emergently intubated in the ED. Lactic acid done was 10. Creatinine was 2.31 and CBC showed hemoglobin of 16.3 with WBC of 12.1 and platelets of 135. Chest x-ray showed increased interstitial markings more prominent in the lower lobes suggestive of CHF with possible bibasilar atelectasis and/or early infiltrates. He has been admitted to be managed for acute hypoxic respiratory failure due to COPD exacerbation as well as probable heart failure of unknown EF. Hospital Course: #Acute hypoxic and hypercapnic respiratory failure due to COPD exacerbation versus pulmonary hypertension Admit to ICU. Patient emergently intubated in the ED. Vent settings as per critical care. Titrate oxygen to maintain saturation above 90% IV Solu-Medrol 40 mg every 8 Patient meets criteria for sepsis but does appear like all this is due to his hypoxia as patient was literally blue on admission. Lactic acid was 10 and this is also likely due to patient being blue. Will however cover patient with empiric antibiotics and get blood cultures and sputum cultures. consult critical care order 2D echo; cycle troponins diurese with IV lasix due to concerns about heart failure exacerbation sedated with propofol and fentanul 01/19/2021: Failed spontaneous breathing trial this morning, will continue with intubation and sedation, wean as able 01/21/2021: Continue with weaning sedation more alert today's failed spontaneous breathing trial this morning. 01/22/2021: Extubated this morning, tolerating BiPAP very well. Continues to improve with diuresis secondary to his anasarca and his pulmonary hypertension 01/23/2021: Continue with Lasix twice daily, he does have room his renal function to handle this. Continue with Solu-Medrol dosing 3 times daily and he was transitioned from Zosyn to Cipro for the pneumonia 01/24/2021: Solu-Medrol transition to prednisone daily and his Lasix was decreased to daily dosing as well secondary to a rising bicarb 01/25/2021: Ambulated in the hallway needed 6 L with ambulation to maintain his oxygen saturations. We will continue with diuresis and continue to reevaluate discharge planning. Will complete Cipro on 01/27/2021 #Pulmonary hypertension kidney function is impaired, so will hold off on diuretics for now. order 2D echo monitor intake and output. Fluid restriction to 1500cc daily. 01/22/2021: Echo demonstrates moderate pulmonary hypertension with a pressure of 51 mmHg. We will continue with twice daily diuresis given his anasarca 01/23/2021: Continue with Lasix twice daily does have still continued anasarca with dependent edema in all extremities, creatinine today is 1.18 however his CO2 is 42 therefore he may need a break from diuresis at some point 01/25/2021: Decrease Lasix to daily dosing secondary to rising bicarb #Septic shock due to pseudomonal pneumonia/thrombocytopenia Patient was tachycardic and tachypneic and also has elevated lactic acid. He therefore meets the criteria for septic shock per Lactic acid criteria will start on broad spectrum antibiotics for now. hold off on IVF due to concerns about heart failure get blood cultures 01/19/2021: Blood cultures are still pending, will continue with Zosyn 01/23/2021: Transition Zosyn to Cipro. Thrombocytopenia could be reactive however will discontinue Lovenox 01/24/2021: Continue with Cipro we will continue to monitor platelets 01/25/2021: Complete Cipro on 01/27/2021 #ERYN Creatinine is 2.31; no baseline in the system cant hydrate with IVF as patient may also be fluid overloaded, annd so is being diuresed will trend Cr 01/19/2021: Creatinine down to 1.69. 01/21/2021: Creatinine down to 1.31, can give Lasix if necessary given his fluid status. 01/22/2021: Creatinine is 1.16 Resolved #Elevated BP Blood pressure was 176/109 at time of arrival. Patient does not appear to be a known hypertensive. This may be due to his respiratory failure as well and increased work of breathing IV hydralazine as needed. If blood pressure remains elevated, will consider starting blood pressure medications. 01/19/2021: Blood pressure is stable #Elevated LFTs: Had elevated LFTs on admission likely secondary to severe hypoxia. This improved during the course of his hospitalization, a liver ultrasound was obtained which did not demonstrate any hepatic masses or biliary dilatation, a HIDA scan was recommended however he does not want to stay through the weekend for this. Would recommend outpatient follow-up with lab work and further imaging as indicated. He is demanding to leave today, discussed with him that his oxygen requirements are extremely high with ambulation and his oxygen status is tenuous at best however he refuses to stay any longer than today. He understands that it is a big risk to go home today. Will attempt to get him a high oxygen concentrator for discharge to go home with. I did discuss with him that he needs to follow-up with his PCP as soon as possible and to continue with his Lasix. He will continue Cipro in a day. His renal function has resolved and his thrombocytopenia is improving back over 50,000 today. Physical Exam Const alert, oriented x3 and no apparent distress General Appearance: cooperative HEENT normocephalic and moist oral mucous membranes Eyes PERRL, EOMs intact bilaterally and conjunctivae normal Neck supple and no JVD Resp normal respiratory effort, no retractions and no use of accessory muscles Auscultation: wheezes expiratory wheezes and scattered wheezes and diminished lung sounds; Negative for crackles, rales or rhonchi Cardio regular rate, regular rhythm, S1 normal heart sound, S2 normal heart sound and no murmurs GI soft to palpation, non-tender and non-distended; Negative for hepatosplenomegaly Extremity Extremity Narrative: Anasarca General Extremity: Negative for clubbing or cyanosis Skin no rashes or lesions noted Neuro no focal motor deficits and no sensory deficits noted Psych affect normal Appearance: appropriate Weight / BMI Weight Weight: 261 lb 11.019 oz Body Mass Index (BMI) 43.7 ABG / Lab / Microbiology Data Result Diagrams: 01/26/21 07:13 01/26/21 07:13 Laboratory: Laboratory Results - last 24 hr 01/25/21 01/25/21 01/25/21 06:08 12:02 16:51 WBC RBC Hgb Hct MCV MCH MCHC RDW Std Deviation RDW Coeff of [place]elv[place] Plt Count MPV Immature Gran % (Auto) Neut % (Auto) Lymph % (Auto) Baldwin % (Auto) Eos % (Auto) Baso % (Auto) Absolute Neuts (auto) Absolute Lymphs (auto) Nucleated RBC % Diff Path Review Reviewed Sodium Potassium Chloride Carbon Dioxide Anion Gap BUN Creatinine Estim Creat Clear Calc Est GFR (MDRD) Af Amer Est GFR (MDRD) Non-Af BUN/Creatinine Ratio Glucose Calcium POC Glucose 204 H 424 H 01/25/21 01/26/21 01/26/21 21:09 06:02 07:13 WBC 12.2 H RBC 5.50 Hgb 15.6 Hct 53.1 MCV 96.5 H MCH 28.4 MCHC 29.4 L RDW Std Deviation 61.4 H RDW Coeff of Etelvina 17.6 H Plt Count 56 L MPV 9.6 Immature Gran % (Auto) 0.600 Neut % (Auto) 82.1 H Lymph % (Auto) 7.7 L Baldwin % (Auto) 8.7 Eos % (Auto) 0.7 Baso % (Auto) 0.2 Absolute Neuts (auto) 10.0 H Absolute Lymphs (auto) 0.94 Nucleated RBC % 0 Diff Path Review Sodium Potassium Chloride Carbon Dioxide Anion Gap BUN Creatinine Estim Creat Clear Calc Est GFR (MDRD) Af Amer Est GFR (MDRD) Non-Af BUN/Creatinine Ratio Glucose Calcium POC Glucose 212 H 72 01/26/21 07:13 WBC RBC Hgb Hct MCV MCH MCHC RDW Std Deviation RDW Coeff of Etelvina Plt Count MPV Immature Gran % (Auto) Neut % (Auto) Lymph % (Auto) Baldwin % (Auto) Eos % (Auto) Baso % (Auto) Absolute Neuts (auto) Absolute Lymphs (auto) Nucleated RBC % Diff Path Review Sodium 141 Potassium 3.7 Chloride 94 L Carbon Dioxide > 45.0 H* Anion Gap TNP BUN 30 H Creatinine 0.71 Estim Creat Clear Calc 111.20 Est GFR (MDRD) Af Amer 149 Est GFR (MDRD) Non-Af 123 BUN/Creatinine Ratio 42.4 H Glucose 83 Calcium 8.4 L POC Glucose Microbiology: Microbiology 01/18/21 09:30 Blood Culture (Wb) - Anticubital Right Blood Culture - Final No growth in 5 days. 01/18/21 09:25 Blood Culture (Wb) - Anticubital Left Blood Culture - Final No growth in 5 days. 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 lactose cloth shearer 01/18/21 12:30 Interface Orders SARS-CoV-2 Antigen (Rapid) - Final 01/18/21 Unknown Urine Catheter - Reyez Legionella Antigen - Final 01/18/21 Unknown Urine Catheter - Reyez Streptococcus pneumoniae Antigen (M - Final D/C Instructions Discharge Diet: 1800 Calorie Control Diet and 8 Cup Fluid Restriction Call your doctor if you observe: Fever of 101 or Higher, Shortness of breath, Dizziness, Swelling in the ankles, Chest pain and Increased palpitations (irregular heartbeat) Meaningful Use Info Meaningful Use Diagnoses (Choose all that apply): None applicable Discharge Plan Admission Admit Date/Time: 01/18/21 10:49 Attending Provider: Porfirio Latham Primary Care Provider: Mariia Joe Consulting Providers: Curly Bell ; Twan Leyva ; Beverley Espinosa [employer] Instructions Patient Instructions: COPD: Wheezing and Chest Tightness, COPD: Using Inhalers, Pulmonary Hypertension Additional Instructions / Restrictions: Patient Problems: Altered Health Status related to Hospitalization Patient Goals: *Optimal Level of Health *Keep Appointments *Medication Compliance *Remain SafeFollow-up with your primary care physician to obtain outpatient labs monitor renal functions and electrolytes secondary to being on Lasix for your pulmonary hypertension. Discharge Orders/Prescriptions Prescriptions: New ciprofloxacin HCl 500 mg Tablet 500 mg PO Q12 Qty: 4 RF: 0 furosemide [Lasix] 40 mg tablet 40 mg PO DAILY Qty: 30 RF: 0 prednisone 20 mg tablet 40 mg PO DAILY Qty: 14 RF: 0 Continued albuterol sulfate 2.5 MG/3 ML solution for nebulization 2.5 mg INHALATION BID RF: 0 albuterol sulfate 1 INHALER inhaler 1 - 2 puff INHALATION Q4H PRN PRN (Reason: Sob &/Or Wheezing) RF: 0 Referrals / Follow Up: Curly Bell MD [STAFF PHYSICIAN] - Within 2 Weeks (Please call to schedule follow up appointment) Mariia Joe MD [Primary Care Provider] - In 1 Week (Please call to schedule follow up appointment) Disposition Disposition (needs filled in before D/C Order can be placed): Home, Self Care Charges/Coding Visit Charges Inpatient E&M: 91996 Disch Hosp
--- NOTE | 2021-01-28 15:52 | CASEMGMT ---
RN CM Discharge Follow-up Phone Call: MARIA ISABEL: Chau Strata: 3 Call Date: 01/28/21 Discharge Date: Time of Call: 1552 Duration: 1 min Admitting Diagnosis: Acute hypoxic resp failure/ COPD RN EVELYN attempted to complete follow-up phone call after recent hospitalization. No answer and unable to leave voicemail.
== END 2021-01-26 10:48 | disposition home or self-care (01) | DRG 871 ==
LOC: ED 10:31 → ICU 10:54 → PCU 01-23 15:56
PROVIDERS: Internal Medicine Critical Care Medicine; Admitting Provider Student in an Organized Health Care Education/Training Program; Emergency Provider Emergency Medicine; PCP Student in an Organized Health Care Education/Training Program; Visit Provider Family Medicine
DX: A41.9 Sepsis, unspecified organism (principal); J96.22 Acute and chronic respiratory failure with hypercapnia; R65.21 Severe sepsis with septic shock; J15.1 Pneumonia due to Pseudomonas; J96.21 Acute and chronic respiratory failure with hypoxia; E87.2 Acidosis; J44.0 Chronic obstructive pulmonary disease with (acute) lower respiratory infection; J44.1 Chronic obstructive pulmonary disease with (acute) exacerbation; N17.9 Acute kidney failure, unspecified; Z68.41 Body mass index [BMI] 40.0-44.9, adult; S36.119A Unspecified injury of liver, initial encounter; I50.9 Heart failure, unspecified; I27.20 Pulmonary hypertension, unspecified; R03.0 Elevated blood-pressure reading, without diagnosis of hypertension; Z20.822 Contact with and (suspected) exposure to COVID-19; F10.20 Alcohol dependence, uncomplicated; E66.01 Morbid (severe) obesity due to excess calories; F17.210 Nicotine dependence, cigarettes, uncomplicated
CPT/HCPCS: 31500; 31720; 36415; 36569; 36600; 51702; 71045; 74018; 76705; 80048; 80053; 80076; 81001; 82803; 82962; 82977; 83605; 83690; 83735; 83880; 84100; 84484; 85025; 85610; 85730; 87040; 87070; 87077; 87086; 87088; 87184; 87186; 87205; 87426; 87449; 87641; 93005; 93306; 94002; 94003; 94640; 94660; 97110; 97162; 97165; 97530; 97535; 97802; 97803; 99251; 99285; 99406; J7030; J7040; Q9957; A4216; C8929; G0463; J0696; J1940; J3010; J3490

== ENCOUNTER → 2021-02-21 | Outpatient (CLI) | payer MEDICAID, SELFPAY ==
[2021-02-21 13:07] VITALS: BMI 43.7
== END | disposition home or self-care (01) ==
LOC: LABSPEC 14:13
PROVIDERS: PCP Student in an Organized Health Care Education/Training Program; Referring Provider Nurse Practitioner Acute Care; Visit Provider Nurse Practitioner Acute Care
DX: J44.9 Chronic obstructive pulmonary disease, unspecified (principal)
CPT/HCPCS: 87070; 87205